=== PATIENT | female | born 1975 | race Two or more races ===

== ENCOUNTER 2020-09-18 00:12 | Emergency (ER) | payer OTHER, SELFPAY ==
[2020-09-18 00:13] VITALS: BP 138/89; PULSE 102; RESP 18; TEMP 36.9; O2SAT 97; BMI 25.2
--- NOTE | 2020-09-18 00:19 | ED_ITS ---
HPI - Alcohol General Chief Complaint: Psychiatric Symptoms Stated Complaint: etoh Time Seen by Provider: 09/18/20 00:19 Source: patient and family Mode of arrival: ambulatory Limitations: no limitations History of Present Illness HPI narrative: Patient with history of depression alcohol use been depressed for long-time specially for last 2 years and drinking heavy been hospitalized 3 times for depression and detox last discharge was 09/12 from [facility] for depression and alcohol use patient feels suicidal sometimes without any significant plan. Patient been fighting with her lately and her left her yesterday for same reason now she lives alone and she has been drinking heavy complaint: alcohol intoxication Related Data Allergies Allergy/AdvReac Type Severity Reaction Status Date / Time No Known Allergies Allergy Verified 09/18/20 00:19 Review of Systems Review of Systems: Constitutional : No Weight loss, No Fever, No Chills ENT/Mouth : No sore throat, No Rhinorrhea Eyes: No Eye Pain, No Swelling Cardiovascular : No Chest Pain, no palpitations Respiratory : No Cough, No Sputum, no shortness of breath Gastrointestinal : ++ Nausea, No Vomiting, No Diarrhea, No abdominal Pain, no black stools Genitourinary : No Dysuria, No Urinary Frequency Musculoskeletal : No joint pain, No Myalgias, No Joint Swelling Skin : No Skin Lesions, No rash Neuro : No Weakness, No Numbness, No Dizziness, No Headache Psych : No Anxiety/Panic, No Depression Heme/Lymph: No Bruising, No Lymphadenopathy Endocrine : No Polyuria, No Polydipsia All other systems reviewed and are negative [facility] Past Medical History Medical History (Updated 09/18/20 @ 02:05 by Vlad Azevedo MD) Alcohol abuse Major depression Social History Social History Advance Directives: No Physical Exam Vital Signs: Vital Signs: Last Vital Signs Temp 98.4 F 09/18/20 00:13 Pulse 102 H 09/18/20 00:13 Resp 18 09/18/20 00:13 BP 138/89 09/18/20 00:13 Pulse Ox 97 09/18/20 00:13 Body Mass Index 25.2 Appearance: Alert. Oriented X3. No acute distress. Tearful looks sad Eyes: PERRLA, No Nystagmus etoh ++ ENT: Pharynx normal. Oral Mucosa moist Neck: Normal inspection. Neck supple. CVS: Normal heart rate and rhythm. Pulses normal. Respiratory: No respiratory distress. Equal air entry bilateral, no wheezing/rales/rhonchi Abdomen: Soft and nontender. Bowel sounds are present, no mass palpable, no CVA tenderness Skin: Skin warm and dry. Normal skin color. Normal skin turgor. Extremities: No lower extremity edema. No calf tenderness Neuro: Oriented X 3. No motor deficit. No sensory deficit.No cerebellar signs , cranial nerves II-XII intact Psych: Looks depressed vague about suicidal ideation, no specific plan no homicidal ideation no hallucination or delusion MDM - Alcohol MDM Narrative Medical decision making narrative: Patient with alcohol dependence with depression with vague suicidal ideation multiple hospitalization comes here for the same situation ETOH level is 208 will get BH in consult once sober Differential Diagnosis Differential diagnosis: Likely alcohol dependence Medical Records Attestation: I reviewed the patient's medical records. Lab Data Attestation: I reviewed the patient's lab results. Result diagrams: 09/18/20 01:00 09/18/20 01:00 Labs: Lab Results 09/18/20 09/18/20 09/18/20 Range/Units 01:00 01:00 01:00 WBC 6.3 (4.8-10.8) X10*3/uL RBC 4.47 (4.20-5.50) X10*6/uL Hgb 10.6 L (12.0-16.0) g/dl Hct 33.0 L (37-47) % MCV 73.8 L (80-98) fL MCH 23.7 L (27.0-33.0) pg MCHC 32.1 (31.0-35.0) g/dl RDW 20.2 H (11.0-16.0) % Plt Count 335 (160-400) X10*3/uL MPV 9.2 L (9.4-12.3) fL Immature Gran % (Auto) 0.2 (0.0-0.4) % Neut % (Auto) 69.5 (45-73) % Lymph % (Auto) 23.3 (20-40) % [place] % (Auto) 5.4 (2-11) % Eos % (Auto) 0.3 (0-4) % Baso % (Auto) 1.3 (0-2) % Lymph # (Auto) 1.5 (1.2-4.9) X10*3/uL [place] # (Auto) 0.3 (0.1-1.2) X10*3/uL Eos # (Auto) 0.0 (0.0-0.4) X10*3/uL Baso # (Auto) 0.1 (0.0-0.2) X10*3/uL Abs Immat Gran (auto) 0.01 (0.00-0.03) X10*3/uL Absolute Neuts (auto) 4.4 (2.0-8.3) X10*3/uL Absolute Nucleated RBC 0.000 (0.0-0.012) X10*3/uL Nucleated RBC % (auto) 0.0 (0.0-0.2) /100WBC PT 14.5 H (10.8-13.0) SEC INR 1.2 H (0.9-1.1) Sodium 141 (135-145) mmol/L Potassium 4.0 (3.3-5.1) mmol/L Chloride 102 (96-108) mmol/L Carbon Dioxide 20 L (22-29) mmol/L Anion Gap 23 H (12-20) BUN 9 (9-16) mg/dL Creatinine 0.67 (0.5-1.4) mg/dL Estim Creat Clear Calc 99.2 Estimated GFR > 60 Random Glucose 99 (60-115) mg/dL Calcium 9.2 (8.4-10.2) mg/dL Magnesium 2.1 (1.6-2.6) mg/dL Total Bilirubin 0.4 (0.0-1.0) mg/dL AST 139 H (5-31) U/L ALT 95 H (0-31) U/L Alkaline Phosphatase 174 H (39-117) U/L Total Protein 7.6 (6.5-8.0) g/dL Albumin 3.9 (3.5-5.0) g/dL Lipase 36 (8-78) U/L Ethyl Alcohol mg/dL COVID-19 (MIKA) (Negative) COVID-19 Clin Com 09/18/20 09/18/20 Range/Units 01:00 01:00 WBC (4.8-10.8) X10*3/uL RBC (4.20-5.50) X10*6/uL Hgb (12.0-16.0) g/dl Hct (37-47) % MCV (80-98) fL MCH (27.0-33.0) pg MCHC (31.0-35.0) g/dl RDW (11.0-16.0) % Plt Count (160-400) X10*3/uL MPV (9.4-12.3) fL Immature Gran % (Auto) (0.0-0.4) % Neut % (Auto) (45-73) % Lymph % (Auto) (20-40) % [place] % (Auto) (2-11) % Eos % (Auto) (0-4) % Baso % (Auto) (0-2) % Lymph # (Auto) (1.2-4.9) X10*3/uL [place] # (Auto) (0.1-1.2) X10*3/uL Eos # (Auto) (0.0-0.4) X10*3/uL Baso # (Auto) (0.0-0.2) X10*3/uL Abs Immat Gran (auto) (0.00-0.03) X10*3/uL Absolute Neuts (auto) (2.0-8.3) X10*3/uL Absolute Nucleated RBC (0.0-0.012) X10*3/uL Nucleated RBC % (auto) (0.0-0.2) /100WBC PT (10.8-13.0) SEC INR (0.9-1.1) Sodium (135-145) mmol/L Potassium (3.3-5.1) mmol/L Chloride (96-108) mmol/L Carbon Dioxide (22-29) mmol/L Anion Gap (12-20) BUN (9-16) mg/dL Creatinine (0.5-1.4) mg/dL Estim Creat Clear Calc Estimated GFR Random Glucose (60-115) mg/dL Calcium (8.4-10.2) mg/dL Magnesium (1.6-2.6) mg/dL Total Bilirubin (0.0-1.0) mg/dL AST (5-31) U/L ALT (0-31) U/L Alkaline Phosphatase (39-117) U/L Total Protein (6.5-8.0) g/dL Albumin (3.5-5.0) g/dL Lipase (8-78) U/L Ethyl Alcohol 208 mg/dL COVID-19 (MIKA) Negative (Negative) COVID-19 Clin Com See Note Discharge Plan Discharge Clinical Impression: Alcohol intoxication Qualifiers: Complication of substance-induced condition: uncomplicated Qualified Code(s): F10.920 - Alcohol use, unspecified with intoxication, uncomplicated Depression Qualifiers: Depression Type: major depressive disorder Major depression recurrence: recurrent Active/Remission status: currently active Major depression episode severity: severe Psychotic features: without psychotic features Qualified Code(s): F33.2 - Major depressive disorder, recurrent severe without psychotic features
[2020-09-18] MEDS: 0.9 % Sodium Chloride 1,000 ML 999 ML IVCONT (00:56)
[2020-09-18] MEDS: ondansetron HCL 4 MG/2 ML VIAL IVPUSH (01:04)
[2020-09-18] MEDS: LORazepam 2 MG/ML VIAL IVPUSH (01:04)
[2020-09-18 01:05] LABS: MANUAL DIFF FLAG NO
[2020-09-18 01:07] LABS: Basophils Absolute Auto 0.1 X10*3/uL (0.0-0.2); Basophils Percent Auto 1.3 % (0-2); Eosinophils Percent Auto 0.3 % (0-4); Hemoglobin 10.6 g/dl (12.0-16.0); Imm Gran Abs Auto 0.01 X10*3/uL (0.00-0.03); Imm Gran Pct Auto 0.2 % (0.0-0.4); Lymphocytes Absolute Auto 1.5 X10*3/uL (1.2-4.9); Lymphocytes Percent Auto 23.3 % (20-40); Mean Corpuscular HGB Conc 32.1 g/dl (31.0-35.0); Mean Corpuscular Hemoglobin 23.7 pg (27.0-33.0); Mean Corpuscular Volume 73.8 fL (80-98); Mean Platelet Volume 9.2 fL (9.4-12.3); Monocytes Absolute Auto 0.3 X10*3/uL (0.1-1.2); Monocytes Percent Auto 5.4 % (2-11); Neutrophils Absolute Auto 4.4 X10*3/uL (2.0-8.3); Neutrophils Percent Auto 69.5 % (45-73); Platelet Count 335 X10*3/uL (160-400); Red Blood Count 4.47 X10*6/uL (4.20-5.50); Red Cell Distribution Width 20.2 % (11.0-16.0); White Blood Count 6.3 X10*3/uL (4.8-10.8)
[2020-09-18 01:21] LABS: COVID-19 Test Negative (Negative)
[2020-09-18 01:22] LABS: INTERNATIONAL NORM RATIO 1.2 (0.9-1.1); Prothrombin Time 14.5 SEC (10.8-13.0)
[2020-09-18 01:35] LABS: Ethanol 208 mg/dL
[2020-09-18 01:41] LABS: Alanine Aminotransferase 95 U/L (0-31); Albumin Level 3.9 g/dL (3.5-5.0); Alkaline Phosphatase 174 U/L (39-117); Anion Gap 23 (12-20); Aspartate Amino Transferase 139 U/L (5-31); Bilirubin Total 0.4 mg/dL (0.0-1.0); Blood Urea Nitrogen 9 mg/dL (9-16); Calcium 9.2 mg/dL (8.4-10.2); Carbon Dioxide 20 mmol/L (22-29); Chloride 102 mmol/L (96-108); Creatinine Clr Calc Pharmacy 99.2; Estimated Glomerular Filt Rate > 60; Glucose Random 99 mg/dL (60-115); Lipase 36 U/L (8-78); Magnesium 2.1 mg/dL (1.6-2.6); Sodium 141 mmol/L (135-145); Total Protein 7.6 g/dL (6.5-8.0)
[2020-09-18 02:47] LABS: Appearance Urine CLEAR; Color Urine YELLOW; Glucose Urine UA NEG (NEG); Leukocyte Esterase Urine NEG (NEG); Nitrite Urine NEG (NEG); Urine Blood TRACE (NEG); Urine Ketones 15 MG/DL (NEG); Urine Protein NEG (NEG-TRACE)
--- NOTE | 2020-09-18 03:00 | PC.NURSE ---
belongings were locked in locker #[id number]
[2020-09-18 03:07] LABS: Anion Gap 21 (12-20); Blood Urea Nitrogen 8 mg/dL (9-16); Calcium 8.4 mg/dL (8.4-10.2); Carbon Dioxide 19 mmol/L (22-29); Chloride 104 mmol/L (96-108); Creatinine Clr Calc Pharmacy 107.2; Estimated Glomerular Filt Rate > 60; Glucose Random 86 mg/dL (60-115); Potassium 3.9 mmol/L (3.3-5.1); Sodium 140 mmol/L (135-145)
[2020-09-18 03:11] LABS: Hyaline Casts Urine 0-2 /LPF; RBC Urine 0-2 /HPF (0); Squamous Epithelial Cell Urine 1+ /LPF; WBC Urine 0-2 /HPF (0-4)
[2020-09-18 03:19] LABS: Amphetamine Screen Urine Not Detected (Not Detect); Barbiturates, Urine POSITIVE (Not Detect); Benzodiazepines Screen Urine Not Detected (Not Detect); Cannabinoid Screen Urine POSITIVE (Not Detect); Cocaine Screen Urine Not Detected (Not Detect); Opiate Screen Urine Not Detected (Not Detect); Phencyclidine Screen Urine Not Detected (Not Detect)
--- NOTE | 2020-09-18 04:30 | PC.NURSE ---
JAMESN was faxed and called at this time
[2020-09-18 05:48] VITALS: BP 116/68; PULSE 96; RESP 15; O2SAT 97
--- NOTE | 2020-09-18 05:54 | PC.NURSE ---
patient is ambulatory to the bathroom with a steady gait, vitals stable
[2020-09-18 08:34] VITALS: BP 144/82; PULSE 88; RESP 18; O2SAT 98
--- NOTE | 2020-09-18 10:28 | MHC.CARE ---
CARE team met with pt for assessment this am at 0845.
--- NOTE | 2020-09-18 10:54 | MHC.CARE ---
Upon completion of CARE team assessment and case review with ED provider pt has been cleared of psychiatric presentation and no acute psychiatric needs presented. Pt is open and agreeable to the plan of EATS referral. Recovery team assisting in this process for continuity of care.
--- NOTE | 2020-09-18 11:55 | MHC.RECOVSUP ---
? Reason for consult:Continuity of care o Current location: ED-13 o Identified substance use concern: ETOH - Seeking ATS (detox) - Support ? Intervention: o ATS bed search started/completed/in process o Community resources provided o Harm reduction discussion ? Plaan: o Bed search in progress to o Patient awaiting crisis evaluation o Patient to follow up with [facility] after discharge ? Additional information: Pt. to do a screening for [facility], and referrals to [facility] and [facility] have been made.
[2020-09-18 13:05] VITALS: BP 143/79; PULSE 85; RESP 16; TEMP 36.8; O2SAT 99
--- NOTE | 2020-09-18 14:06 | MHC.RECOVRN ---
T/w briefly met with pt to discuss placement after dispo to [facility]. Pt agreeable. Pt reports 2 40 oz beers and 10 nips daily, last use last night. Pt had referrals placed to [facility], [facility], and [facility] Pt declines referral to [facility]. [facility] first available bed on 09/21. No EATS bed available at [place]. [facility] currently reviewing referral. Message left with [facility] Tay television schedule coordinator (ph- [phone]), requesting call back on status. Will continue to follow.
--- NOTE | 2020-09-18 15:16 | PC.NURSE ---
Addendum entered by Shiv Nice 09/18/20 15:17: Late Entry Original Note: Report received. PT ambulated to pod with steady gait, denies complaints at this time
[2020-09-18] MEDS: LORazepam 1 MG TABLET 2 MG PO (16:00)
--- NOTE | 2020-09-18 17:07 | PC.NURSE ---
Pt resting in bed comfortably at this time, no signs of distress
--- NOTE | 2020-09-18 19:20 | MHC.RECOVSUP ---
i Followed up with patient and Called [facility] To followed up with the status on EATS bed. Patient is still pending status.
[2020-09-18] MEDS: FLUoxetine HCl 20 MG CAPSULE 40 MG PO (20:05)
[2020-09-18] MEDS: Naltrexone HCl 50 MG TABLET PO (20:05)
[2020-09-18] MEDS: Folic Acid 1 MG TABLET PO (20:05)
--- NOTE | 2020-09-18 20:23 | MHC.RECOVSUP ---
? Reason for consult Support & Resources o Current location: ED 22 o Identified substance use concern: Heroin - Support ? Intervention: o Community resources provided o Harm reduction discussion ? Plan: o Referral to [facility] o Follow up tomorrow o Patient to follow up with [facility] after discharge ? Additional information: Patient is very interested in starting MAT.. I supplied Patient with the information to the [facility] and also the information to [facility] for support in his recovery.
[2020-09-18 20:49] VITALS: BP 130/80; PULSE 64; RESP 20; TEMP 36.4; O2SAT 99
--- NOTE | 2020-09-19 01:06 | PC.NURSE ---
Pt reports to this RN that she is feeling anxious. Pt CIWA as documented. This RN to medicate with PRN ativan per MAR
[2020-09-19 01:09] VITALS: BP 144/93; PULSE 73; RESP 16; TEMP 36.8; O2SAT 99
[2020-09-19] MEDS: LORazepam 1 MG TABLET 2 MG PO ×2 (01:09→08:11)
[2020-09-19] MEDS: Folic Acid 1 MG TABLET PO (08:07)
[2020-09-19] MEDS: FLUoxetine HCl 20 MG CAPSULE 40 MG PO (08:07)
[2020-09-19] MEDS: Naltrexone HCl 50 MG TABLET PO (08:07)
--- NOTE | 2020-09-19 08:12 | MHC.RECOVRN ---
Calls placed to [facility] with no answer regarding status of EATS bed, message left. Awaiting call back.
[2020-09-19 09:22] VITALS: BP 141/91; PULSE 65; RESP 16; TEMP 36.6; O2SAT 99
--- NOTE | 2020-09-19 10:45 | PC.NURSE ---
alert, speech clear, skin wpd, no signs of withdrawl, medicated w ativan earlier for reportyed anxiety, now sleeping, ate breakfast, aware of care plan, calsm and cooperative
== END 2020-09-19 12:58 | disposition home or self-care (01) ==
PROVIDERS: Student in an Organized Health Care Education/Training Program; Emergency Provider Internal Medicine; PCP Pediatrics
DX: F10.220 Alcohol dependence with intoxication, uncomplicated (principal); Y90.7 Blood alcohol level of 200-239 mg/100 ml; F33.2 Major depressive disorder, recurrent severe without psychotic features; R45.851 Suicidal ideations; Z20.822 Contact with and (suspected) exposure to COVID-19; F41.9 Anxiety disorder, unspecified; F12.90 Cannabis use, unspecified, uncomplicated; Z72.89 Other problems related to lifestyle; Z63.0 Problems in relationship with spouse or partner
CPT/HCPCS: 36415; 80048; 80053; 80307; 80320; 81001; 83690; 83735; 85025; 85610; 87635; 96361; 96374; 96375; 99285; J2060; J2405

== ENCOUNTER 2021-06-30 16:49 | Emergency (ER) | payer MEDICAID, SELFPAY ==
--- NOTE | ~2021-06-30 | CT_ITS ---
EXAMINATION: NONCONTRAST HEAD CT NONCONTRAST CERVICAL SPINE CT INDICATION INFORMATION: Fall, headache, trauma COMPARISON: None TECHNIQUE: Separate noncontrast CT examinations of the head and cervical spine were performed. Coronal head CT images and coronal and sagittal cervical spine images were created at the technologist workstation. DLP: 1069 mGy-cm DOSE LOWERING TECHNIQUES: This CT examination was performed using dose optimization techniques as appropriate, variously including the following: - Automated exposure control - Adjustment of mA and/or kV according to patient size (this includes techniques or standardized protocols for targeted exams were dose is matched to indication/reason for exam; i.e. extremities or head) - Use of iterative reconstruction technique FINDINGS: Head: There is no evidence of acute intracranial hemorrhage or territorial infarction. No abnormal mass-effect or midline shift is seen. Cross to white matter differentiation is well preserved. No extra-axial fluid collections are identified. The ventricles are normal in size. There is no abnormal attenuation within the brain parenchyma. There is right frontal scalp soft tissue swelling. No acute fracture is seen. The mastoid air cells and visualized portions of the paranasal sinuses are well-aerated. Cervical spine: There is anatomic alignment of the vertebral bodies and posterior elements. There is partial fusion of C2-C3. Vertebral body heights are maintained. Intervertebral disc spaces are otherwise preserved. No evidence of acute fracture. No prevertebral soft tissue swelling. Visualized portions of the lung apices are unremarkable. The thyroid gland is unremarkable. CT/CT cervical spine wo con IMPRESSION: 1. Head: No acute intracranial findings identified. Right frontal scalp soft tissue swelling. 2. Cervical spine: No acute findings identified.
[2021-06-30 17:17] VITALS: BP 110/65; BP 142/96; PULSE 103; PULSE 88; RESP 18; TEMP 36.9; O2SAT 100; O2SAT 99; BMI 25.1
--- NOTE | 2021-06-30 17:17 | ED_ITS ---
HPI - Alcohol General Chief Complaint: Psychiatric Symptoms Stated Complaint: ETOH,NAUSEA,CRISIS,SI STATEMENTS Time Seen by Provider: 06/30/21 17:17 Source: patient Mode of arrival: EMS Limitations: no limitations History of Present Illness HPI narrative: Patient alcoholic drinks of vodka been drinking very heavily lately complaining of her upper abdominal pain with nausea also having suicidal ideation, crying on arrival also patient states yesterday she fell while going upstairs there are 4 steps and fell on the last step hitting her left side of the head to the last step no loss of conscious no vomiting no other injuries Related Data Home Medications Medication Instructions Recorded Confirmed fluoxetine 20 mg capsule 20 mg PO DAILY 09/18/20 06/30/21 folic acid 1 mg tablet 1 mg PO DAILY 09/18/20 06/30/21 melatonin 5 mg tablet 5 mg PO BEDTIME PRN 06/30/21 06/30/21 pantoprazole 40 mg tablet,delayed 40 mg PO DAILY 06/30/21 06/30/21 release thiamine HCl (vitamin B1) 100 mg 100 mg PO DAILY 06/30/21 06/30/21 tablet Allergies Allergy/AdvReac Type Severity Reaction Status Date / Time No Known Allergies Allergy Verified 06/30/21 20:59 Review of Systems Review of Systems: Yes all other systems are reviewed and are negative PMFSH Past Medical History Medical History Alcohol abuse Major depression Social History Social History Alcohol intake: current Patient Tobacco Use Status: Never used Tobacco Use of substances other than those prescribed or required for medical reasons: No Advance Directives: No Advance Directives Information Provided: Yes Physical Exam Vital Signs: Vital Signs: Last Vital Signs Temp 98.1 F 07/01/21 00:02 Pulse 100 07/01/21 00:02 Resp 19 07/01/21 00:02 BP 96/60 07/01/21 00:02 Pulse Ox 100 07/01/21 00:02 BMI result Body Mass Index 25.1 Appearance: Alert. Oriented X3. No acute distress. etoh++ Eyes: PERRLA, No Nystagmus ENT: Pharynx normal. Oral Mucosa moist Neck: Normal inspection. Neck supple. CVS: Normal heart rate and rhythm. Pulses normal. Respiratory: No respiratory distress. Equal air entry bilateral, no wheezing/rales/rhonchi Abdomen: Soft and nontender. Bowel sounds are present, no mass palpable, no CVA tenderness Skin: Skin warm and dry. Normal skin color. Normal skin turgor. Extremities: No lower extremity edema. No calf tenderness Neuro: Oriented X 3. No motor deficit. No sensory deficit.No cerebellar signs , cranial nerves II-XII intact MDM - Alcohol MDM Narrative Medical decision making narrative: Patient will call in [facility] aerated with depression suicidal ideation will get care team involved to evaluate the patient, patient had CT and cervical spine negative for any acute injury Differential Diagnosis Differential diagnosis: Likely alcohol intoxication Lab Data Attestation: I reviewed the patient's lab results. Result diagrams: 06/30/21 17:57 06/30/21 17:57 Labs: Lab Results 06/30/21 06/30/21 06/30/21 Range/Units 17:57 17:57 17:57 WBC 8.7 (4.8-10.8) X10*3/uL RBC 4.36 (4.20-5.50) X10*6/uL Hgb 9.9 L (12.0-16.0) g/dl Hct 31.6 L (37.0-47.0) % MCV 72.5 L (80.0-98.0) fL MCH 22.7 L (27.0-33.0) pg MCHC 31.3 (31.0-35.0) g/dl RDW 16.2 H (11.0-16.0) % Plt Count 293 (160-400) X10*3/uL MPV 9.8 (9.4-12.3) fL Immature Gran % (Auto) 0.3 (0.0-0.4) % Neut % (Auto) 66.4 (45-73) % Lymph % (Auto) 27.3 (20-40) % [place] % (Auto) 4.0 (2-11) % Eos % (Auto) 1.4 (0-4) % Baso % (Auto) 0.6 (0-2) % Lymph # (Auto) 2.4 (1.2-4.9) X10*3/uL [place] # (Auto) 0.4 (0.1-1.2) X10*3/uL Eos # (Auto) 0.1 (0.0-0.4) X10*3/uL Baso # (Auto) 0.1 (0.0-0.2) X10*3/uL Abs Immat Gran (auto) 0.03 (0.00-0.03) X10*3/uL Absolute Neuts (auto) 5.8 (2.0-8.3) x10*3/uL Absolute Nucleated RBC 0.000 (0.0-0.012) X10*3/uL Nucleated RBC % (auto) 0.0 (0.0-0.2) /100WBC Sodium 144 (135-145) mmol/L Potassium 3.8 (3.3-5.1) mmol/L Chloride 107 (96-108) mmol/L Carbon Dioxide 26 (22-29) mmol/L Anion Gap 15 (12-20) BUN 5 L (9-16) mg/dL Creatinine 0.65 (0.5-1.4) mg/dL Estim Creat Clear Calc 101.2 Estimated GFR > 60 Random Glucose 109 (60-115) mg/dL Calcium 8.8 (8.4-10.2) mg/dL Magnesium 2.0 (1.6-2.6) mg/dL Total Bilirubin 0.5 (0.0-1.0) mg/dL AST 37 H D (5-31) U/L ALT 16 (0-31) U/L Alkaline Phosphatase 144 H (39-117) U/L Total Protein 7.1 (6.5-8.0) g/dL Albumin 3.3 L (3.5-5.0) g/dL Lipase 28 (8-78) U/L Urine Color Urine Appearance Urine pH (5.0-8.0) Ur Specific [place] (1.005-1.025) Urine Protein (NEG-TRACE) MG/DL Urine Glucose (UA) (NEG) MG/DL Urine Ketones (NEG) MG/DL Urine Blood (NEG) Urine Nitrite (NEG) Ur Leukocyte Esterase (NEG) Ethyl Alcohol mg/dL COVID-19 (MIKA) Negative (Negative) COVID-19 Clin Com See Note 06/30/21 06/30/21 Range/Units 17:57 20:16 WBC (4.8-10.8) X10*3/uL RBC (4.20-5.50) X10*6/uL Hgb (12.0-16.0) g/dl Hct (37.0-47.0) % MCV (80.0-98.0) fL MCH (27.0-33.0) pg MCHC (31.0-35.0) g/dl RDW (11.0-16.0) % Plt Count (160-400) X10*3/uL MPV (9.4-12.3) fL Immature Gran % (Auto) (0.0-0.4) % Neut % (Auto) (45-73) % Lymph % (Auto) (20-40) % [place] % (Auto) (2-11) % Eos % (Auto) (0-4) % Baso % (Auto) (0-2) % Lymph # (Auto) (1.2-4.9) X10*3/uL [place] # (Auto) (0.1-1.2) X10*3/uL Eos # (Auto) (0.0-0.4) X10*3/uL Baso # (Auto) (0.0-0.2) X10*3/uL Abs Immat Gran (auto) (0.00-0.03) X10*3/uL Absolute Neuts (auto) (2.0-8.3) x10*3/uL Absolute Nucleated RBC (0.0-0.012) X10*3/uL Nucleated RBC % (auto) (0.0-0.2) /100WBC Sodium (135-145) mmol/L Potassium (3.3-5.1) mmol/L Chloride (96-108) mmol/L Carbon Dioxide (22-29) mmol/L Anion Gap (12-20) BUN (9-16) mg/dL Creatinine (0.5-1.4) mg/dL Estim Creat Clear Calc Estimated GFR Random Glucose (60-115) mg/dL Calcium (8.4-10.2) mg/dL Magnesium (1.6-2.6) mg/dL Total Bilirubin (0.0-1.0) mg/dL AST (5-31) U/L ALT (0-31) U/L Alkaline Phosphatase (39-117) U/L Total Protein (6.5-8.0) g/dL Albumin (3.5-5.0) g/dL Lipase (8-78) U/L Urine Color YELLOW Urine Appearance CLEAR Urine pH 5.5 (5.0-8.0) Ur Specific [place] >= 1.030 H (1.005-1.025) Urine Protein NEG (NEG-TRACE) MG/DL Urine Glucose (UA) NEG (NEG) MG/DL Urine Ketones 15 (NEG) MG/DL Urine Blood NEG (NEG) Urine Nitrite NEG (NEG) Ur Leukocyte Esterase NEG (NEG) Ethyl Alcohol 347 H* mg/dL COVID-19 (MIKA) (Negative) COVID-19 Clin Com Discharge Plan Discharge Clinical Impression: Suicidal ideation, Alcohol abuse Prescriptions: No Action folic acid 1 mg tablet 1 mg PO DAILY 0RF fluoxetine 20 mg capsule 20 mg PO DAILY 0RF pantoprazole 40 mg Tablet,Delayed Release (Dr/Ec) 40 mg PO DAILY 0RF thiamine HCl (vitamin B1) 100 mg Tablet 100 mg PO DAILY 0RF melatonin 5 mg Tablet 5 mg PO BEDTIME PRN (Reason: Sleep) 0RF
[2021-06-30 18:10] LABS: MANUAL DIFF FLAG NO
[2021-06-30 18:21] LABS: Basophils Absolute Auto 0.1 X10*3/uL (0.0-0.2); Basophils Percent Auto 0.6 % (0-2); Eosinophils Absolute Auto 0.1 X10*3/uL (0.0-0.4); Eosinophils Percent Auto 1.4 % (0-4); Hematocrit 31.6 % (37.0-47.0); Hemoglobin 9.9 g/dl (12.0-16.0); Imm Gran Abs Auto 0.03 X10*3/uL (0.00-0.03); Imm Gran Pct Auto 0.3 % (0.0-0.4); Lymphocytes Absolute Auto 2.4 X10*3/uL (1.2-4.9); Lymphocytes Percent Auto 27.3 % (20-40); Mean Corpuscular HGB Conc 31.3 g/dl (31.0-35.0); Mean Corpuscular Hemoglobin 22.7 pg (27.0-33.0); Mean Corpuscular Volume 72.5 fL (80.0-98.0); Mean Platelet Volume 9.8 fL (9.4-12.3); Monocytes Absolute Auto 0.4 X10*3/uL (0.1-1.2); Neutrophils Absolute Auto 5.8 x10*3/uL (2.0-8.3); Neutrophils Percent Auto 66.4 % (45-73); Platelet Count 293 X10*3/uL (160-400); Red Blood Count 4.36 X10*6/uL (4.20-5.50); Red Cell Distribution Width 16.2 % (11.0-16.0); White Blood Count 8.7 X10*3/uL (4.8-10.8)
[2021-06-30 18:23] LABS: Ethanol 347 mg/dL
[2021-06-30 18:26] LABS: Alanine Aminotransferase 16 U/L (0-31); Albumin Level 3.3 g/dL (3.5-5.0); Alkaline Phosphatase 144 U/L (39-117); Anion Gap 15 (12-20); Aspartate Amino Transferase 37 U/L (5-31); Bilirubin Total 0.5 mg/dL (0.0-1.0); Blood Urea Nitrogen 5 mg/dL (9-16); Calcium 8.8 mg/dL (8.4-10.2); Carbon Dioxide 26 mmol/L (22-29); Chloride 107 mmol/L (96-108); Creatinine Clr Calc Pharmacy 101.2; Estimated Glomerular Filt Rate > 60; Glucose Random 109 mg/dL (60-115); Lipase 28 U/L (8-78); Potassium 3.8 mmol/L (3.3-5.1); Sodium 144 mmol/L (135-145); Total Protein 7.1 g/dL (6.5-8.0)
[2021-06-30 18:29] LABS: COVID-19 Test Negative (Negative)
[2021-06-30] MEDS: Famotidine/PF 20 MG/2 ML VIAL IVPUSH (18:38)
[2021-06-30] MEDS: ondansetron HCL 4 MG/2 ML VIAL IVPUSH (18:38)
[2021-06-30] MEDS: 0.9 % Sodium Chloride 1,000 ML 999 ML IV (18:39)
[2021-06-30 19:30] VITALS: BP 129/77; PULSE 88; RESP 18; TEMP 36.5; O2SAT 100
[2021-06-30 20:27] LABS: Appearance Urine CLEAR; Color Urine YELLOW; Glucose Urine UA NEG (NEG); Leukocyte Esterase Urine NEG (NEG); Nitrite Urine NEG (NEG); PH 5.5 (5.0-8.0); Specific Gravity - Urine >= 1.030 (1.005-1.025); Urine Blood NEG (NEG); Urine Ketones 15 MG/DL (NEG); Urine Protein NEG (NEG-TRACE)
[2021-06-30 20:58] VITALS: BP 115/82; PULSE 91; RESP 25; O2SAT 99
--- NOTE | 2021-06-30 21:01 | PC.NURSE ---
Pt with 1:[address] Pt tearful, pacing, attempting to leave room. Pt states Just let me go home, I promise I'll be safe. I just want to go home to drink. Pt redirected, encouraged to return to stretcher. Pt seated on stretcher, resting in position of comfort, placed on bedside cardiac catheterization technologist, VSS on RA. Pt states I just want to drink myself to , then asking why can't I go home? I promise I'll be safe. Redirection provided once again. Pt cooperative with care at this time. Pt stretcher is in lowest locked position, rails raised, call martinez within reach, sitter remains at bedside. Red fall prevention socks on, red fall alert wrist band on, red fall star sign posted. Pt c/o MD nola to be made aware.
--- NOTE | 2021-06-30 21:28 | PC.NURSE ---
Pt reporting anxiety, requesting meds to help her relax. Dr Azevedo aware. Pt to be medicated per orders.
[2021-06-30] MEDS: LORazepam 2 MG/ML VIAL IVPUSH (21:29)
[2021-06-30 21:40] VITALS: BP 107/72; PULSE 83; RESP 18; TEMP 36.6; O2SAT 100
--- NOTE | 2021-06-30 22:19 | PHA.MEDREC ---
med rec complete, patient has not had meds for a couple of days Pharmacy Consult ? Medication Reconciliation Pharmacy has completed the medication reconciliation.
--- NOTE | 2021-06-30 23:33 | PC.NURSE ---
Pt reports falling DATA SUPPORT SPECIALIST, c/o INFANTE, neck pain and epigastric pain. Dr Azevedo made aware, this RN questioning if Dr Azevedo would like CT scan. No additional orders at this time.
[2021-07-01 00:02] VITALS: BP 96/60; PULSE 100; RESP 19; TEMP 36.7; O2SAT 100
[2021-07-01] MEDS: Morphine Sulfate 4 MG/ML CARTRIDGE IVPUSH (00:09)
[2021-07-01 02:00] VITALS: RESP 18
[2021-07-01 03:29] VITALS: BP 92/52; PULSE 84; RESP 16; O2SAT 99
--- NOTE | 2021-07-01 03:32 | PC.NURSE ---
Dr Nath aware of pt's VS and c/o headache and neck pain. No additional orders at this time.
[2021-07-01 03:38] VITALS: BP 92/52; PULSE 97; RESP 16; TEMP 36.7; O2SAT 100
[2021-07-01 04:04] LABS: Amphetamine Screen Urine Not Detected (Not Detect); Barbiturates, Urine Not Detected (Not Detect); Benzodiazepines Screen Urine Not Detected (Not Detect); Cannabinoid Screen Urine POSITIVE (Not Detect); Cocaine Screen Urine Not Detected (Not Detect); Fentanyl, urine Not Detected (Not Detect); Opiate Screen Urine Not Detected (Not Detect); Phencyclidine Screen Urine Not Detected (Not Detect)
--- NOTE | 2021-07-01 07:00 | PC.NURSE ---
Patient slept through the night, no distress observed/reported, care team consult ordered/patient will be assessed in the morning, VSS, will continue to monitor.
--- NOTE | 2021-07-01 07:31 | PC.NURSE ---
patient awake at present, respirations even and unlabored, quiet and making appropriate requests for drinks/water. patient appears in no distress, maintains safe behavior.
[2021-07-01 08:47] VITALS: BP 106/63; PULSE 95; RESP 18; O2SAT 100
[2021-07-01] MEDS: Folic Acid 1 MG TABLET PO (09:33)
[2021-07-01] MEDS: Omeprazole 40 MG CAPSULE.DR PO (09:33)
[2021-07-01] MEDS: Acetaminophen 325 MG TABLET 650 MG PO (09:33)
[2021-07-01] MEDS: Thiamine HCL 100 MG TABLET PO (09:34)
[2021-07-01] MEDS: FLUoxetine HCl 20 MG CAPSULE PO (09:34)
--- NOTE | 2021-07-01 14:53 | MHC.CARE ---
CARE Team met with patient in [facility] who came to the ED by ambulance yesterday after falling while intoxicated ([phone] [phone]) then making suicidal statements. She had slept through the night medically stable for interview today. Patient was alert and oriented, pleasant and engaged, appeared her stated age, somewhat disheveled, her eye contact was intense, voice/speech within normal limits. Affect bright, mood described as anxious, stated that as a consequence of her alcohol use she lost her job and her car, has been looking for work. Patient reported a recent period of abstinence, thought it was 1-2 months then relapsing on Wednesday, due to those circumstances. She identified going to [facility] as the beginning of her sobriety, however she was last here in August 2020 and discharged to that facility. Discussed increasing her support system and getting professional help such as IOP and MAT, patient in full agreement with both, previously went to [facility] in [place] for Vivitrol and found that to be the most effect way to maintain her sobriety to date. In terms of suicidal ideation, patient denied wanting to end her life and noted that she tends to make statements like that when she is very intoxicated, has no history of attempts or gestures. Reported that she wants to live, feels she has a good life and will regain what she has lost if she stops drinking and recognized that alcohol has been the root cause of her losses. Stated that her has been very supportive and helps her in recovery. Patient is not in need of acute psychiatric treatment, no longer in crisis and cleared for discharge. Patient was provided with information about local Intensive Outpatient Programs, [facility] Crisis, detoxes and [facility] [place], a Professor Of Visual Arts will reach out to her and the CARE Team will do a follow-up call within 24-48 hrs. 1400 Left message for patient?s , Sunny ([phone])
--- NOTE | 2021-07-03 10:58 | MHC.CARE ---
CARE Team speaks with pt as a follow up to her hospital visit and to the follow up phone call on 07/02/20 in which a message was left.? She states she is doing ?Ok? and ?Hanging in there?.? She stated that she wanted to consume alcohol yesterday but did not and seemed pleased that she was able to resist the temptation.? Pt is forward thinking, discussing she wanted a new beginning and has been working on her resume as she wants to return to work. She stated she received a voice mail message from the Recovery team.? CARE Team encouraged her to return the call and speak with the recovery team as they could put her in contact with resources she could benefit from.? Pt said she would do so. She denies any SI or self-harm urges.
== END 2021-07-01 15:23 | disposition home or self-care (01) ==
PROVIDERS: Emergency Provider Internal Medicine
DX: R45.851 Suicidal ideations (principal); F10.10 Alcohol abuse, uncomplicated; Y90.8 Blood alcohol level of 240 mg/100 ml or more; F32.9 Major depressive disorder, single episode, unspecified; Z20.822 Contact with and (suspected) exposure to COVID-19; R10.10 Upper abdominal pain, unspecified; R11.0 Nausea; Z79.899 Other long term (current) drug therapy
CPT/HCPCS: 36415; 70450; 72125; 80053; 80307; 81003; 82077; 83690; 83735; 85025; 87635; 96361; 96374; 96375; 99285; J2060; J2270; J2405

== ENCOUNTER 2021-07-24 22:24 | Inpatient (IN) | payer OTHER, SELFPAY ==
[2021-07-24 22:41] VITALS: BP 133/80; PULSE 60; O2SAT 99
[2021-07-24] MEDS: traZODone HCL 50 MG TABLET PO (23:24)
[2021-07-24] MEDS: LORazepam 1 MG TABLET 2 MG PO (23:25)
[2021-07-24] MEDS: Acetaminophen 325 MG TABLET 650 MG PO (23:25)
[2021-07-24 23:29] VITALS: BMI 24.2
[2021-07-25 00:12] VITALS: BMI 24.2
[2021-07-25] MEDS: traZODone HCL 50 MG TABLET PO (01:30)
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
[2021-07-25 06:00] VITALS: BP 149/67; PULSE 58; RESP 18; TEMP 36.4; O2SAT 100
[2021-07-25] MEDS: Omeprazole 40 MG CAPSULE.DR PO (08:22)
[2021-07-25] MEDS: Thiamine HCL 100 MG TABLET 50 MG PO (08:22)
[2021-07-25] MEDS: Folic Acid 1 MG TABLET PO (08:22)
[2021-07-25] MEDS: LORazepam 1 MG TABLET 2 MG PO (08:26)
[2021-07-25] MEDS: Acetaminophen 325 MG TABLET 650 MG PO ×2 (08:34→18:51)
[2021-07-25 08:43] LABS: MANUAL DIFF FLAG NO
[2021-07-25 08:51] LABS: Basophils Percent Auto 0.3 % (0-2); Eosinophils Absolute Auto 0.1 X10*3/uL (0.0-0.4); Eosinophils Percent Auto 2.3 % (0-4); Hematocrit 27.2 % (37.0-47.0); Hemoglobin 8.2 g/dl (12.0-16.0); Imm Gran Abs Auto 0.01 X10*3/uL (0.00-0.03); Imm Gran Pct Auto 0.3 % (0.0-0.4); Lymphocytes Absolute Auto 0.7 X10*3/uL (1.2-4.9); Lymphocytes Percent Auto 23.9 % (20-40); Mean Corpuscular HGB Conc 30.1 g/dl (31.0-35.0); Mean Corpuscular Hemoglobin 21.8 pg (27.0-33.0); Mean Corpuscular Volume 72.1 fL (80.0-98.0); Mean Platelet Volume 10.3 fL (9.4-12.3); Monocytes Absolute Auto 0.2 X10*3/uL (0.1-1.2); Monocytes Percent Auto 5.9 % (2-11); Neutrophils Absolute Auto 2.1 x10*3/uL (2.0-8.3); Neutrophils Percent Auto 67.3 % (45-73); Platelet Count 145 X10*3/uL (160-400); Red Blood Count 3.77 X10*6/uL (4.20-5.50); Red Cell Distribution Width 16.5 % (11.0-16.0); White Blood Count 3.1 X10*3/uL (4.8-10.8)
[2021-07-25 09:01] LABS: Amylase 36 U/L (28-100); Estimated Average Glucose 123 mg/dL; Hemoglobin A1c % 5.9 %
[2021-07-25 09:12] LABS: Alanine Aminotransferase 16 U/L (0-31); Albumin Level 3.5 g/dL (3.5-5.0); Alkaline Phosphatase 145 U/L (39-117); Anion Gap 9 (12-20); Aspartate Amino Transferase 33 U/L (5-31); Bilirubin Total 0.7 mg/dL (0.0-1.0); Blood Urea Nitrogen 6 mg/dL (9-16); Calcium 9.3 mg/dL (8.4-10.2); Carbon Dioxide 28 mmol/L (22-29); Chloride 104 mmol/L (96-108); Cholesterol 180 mg/dL; Creatinine Clr Calc Pharmacy 96.7; Estimated Glomerular Filt Rate > 60; Glucose Fasting 97 mg/dL (60-99); HDL Cholesterol 60 mg/dL; Iron 20 mcg/dL (30-160); LDL Cholesterol Calculated 102 mg/dl; Lipase 9 U/L (8-78); Magnesium 1.9 mg/dL (1.6-2.6); Percent Iron Saturation 4 % (15-50); Potassium 3.5 mmol/L (3.3-5.1); Sodium 137 mmol/L (135-145); Total Iron Binding Capacity 455 mcg/dL (228-428); Total Protein 7.1 g/dL (6.5-8.0); Triglycerides 92 mg/dL; Unsaturated Iron Binding 435 ug/dL
[2021-07-25 09:20] LABS: UPreg QC Valid YES
[2021-07-25 09:22] LABS: Urine Pregnancy NEGATIVE (NEGATIVE)
[2021-07-25 09:23] LABS: HIV AB/AG Nonreactive (Nonreactive)
[2021-07-25 09:30] LABS: Free T4 (Free Thyroxine) 0.74 ng/dL (0.71-1.85); Thyroid Stimulating Hormone 4.54 uIU/mL (0.32-4.0)
[2021-07-25 10:25] LABS: Folate 14.3 ng/mL (> or = 4.0); Vitamin B12 479 pg/mL (200-900)
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
--- NOTE | 2021-07-25 11:36 | HO.PM.IMCN ---
History of Present Illness Data of Consult Service Date: 07/25/21 Primary Care Provider: Brooke Hilton MD HPI Reason for consult: Routine Medical H&P This is a 46 yo F with a PMH of obesity - s/p Gastric bypass in 2013 (not with normal BMI), chronic alcohol abuse and dependence with resultant chronic pancreatitis, chronic anemia who is admitted to M5. Medical consult requested for routine Medical H&P. Patient is seen and examined in the exam room on M5. RN is present. Patient reports chronic abdominal pain, no acute changed. Denies being on pancreatic enzymes. Denies n/v/d. Denies fevers or chills. Reports last drink about 4 days ago. Prior withdrawal, but no seizures / DTs. PMH Anemia Chronic Pancreatitis PSH Gastric Bypass FH Alcohol abuse in her uncles SH Denies tobacco or illicit substance Drinks alcohol Review of Systems Review of Systems: negative except HPI [facility] Medical History (Updated 07/25/21 @ 11:53 by Jnes Velasquez MD) Alcohol abuse Major depression Pancreatitis (~2018) Surgical History (Updated 07/25/21 @ 00:17 by Paty Hardy RN) H/O gastric bypass (~2013) Social History Household Members: Spouse Household Members Other:: two cats Housing: House Do you presently have visiting nurse or other home services: No Alcohol intake: current Patient Tobacco Use Status: Never used Tobacco Use of substances other than those prescribed or required for medical reasons: No Currently Displaying Signs/Symptoms of Drug Intoxication Withdrawal: No Have you been hit, kicked, punched, or otherwise hurt by someone within the past year? If so, by whom?: No Do you feel safe in your current relationship?: Yes Is there a partner from a previous relationship who is making you feel unsafe now?: No Are you made to feel afraid or neglected: No Advance Directives: No Advance Directives Information Provided: No Advance Directives on File: No Do you have thoughts of harming others: None Do you have a plan to hurt others: No Plan Recently lost weight without trying: No Nutrition Risks: No Nutritional Risk Patient : No : No Poor oral hygiene: No Meds Allergies Allergy/AdvReac Type Severity Reaction Status Date / Time No Known Allergies Allergy Verified 06/30/21 20:59 Active Medications: Current Medications Acetaminophen (Acetaminophen 325 Mg Tablet) 650 mg PO Q6H PRN PRN Reason: Headache/Pain Mild Scale (1-3) Last Admin: 07/25/21 08:34 Dose: 650 mg Documented by: Al Hydroxide/Mg Hydroxide (Magnesium Hydrox/Alum Hydrox 30 Ml Oral.Susp) 30 ml PO Q6H PRN PRN Reason: Heartburn/Nausea Folic Acid (Folic Acid 1 Mg Tablet) 1 mg PO DAILY [facility] Last Admin: 07/25/21 08:22 Dose: 1 mg Documented by: Gabapentin (Gabapentin 300 Mg Capsule) 300 mg PO TID [facility] Hydroxyzine HCl (Hydroxyzine Hcl 25 Mg Tablet) 25 mg PO Q6H PRN PRN Reason: Anxiety Lorazepam (Lorazepam 1 Mg Tablet) 1 mg PO TID [facility]; Taper Stop: 07/31/21 14:59 Lorazepam (Lorazepam 1 Mg Tablet) 1 mg PO Q2H PRN PRN Reason: for CIWA 6 to 10 Lorazepam (Lorazepam 1 Mg Tablet) 2 mg PO Q2H PRN PRN Reason: for Ciwa 10 and above Magnesium Hydroxide (Milk Of Magnesia 30 Ml Oral.Susp) 30 ml PO DAILY PRN PRN Reason: Constipation Melatonin (Melatonin 3 Mg Tablet) 6 mg PO BEDTIME [facility] Omeprazole (Omeprazole 40 Mg Capsule.Dr) 40 mg PO DAILY@0630 [facility] Last Admin: 07/25/21 08:22 Dose: 40 mg Documented by: Thiamine HCl (Thiamine Hcl 100 Mg Tablet) 50 mg PO DAILY [facility] Last Admin: 07/25/21 08:22 Dose: 50 mg Documented by: Trazodone HCl (Trazodone Hcl 50 Mg Tablet) 50 mg PO BEDTIME PRN PRN Reason: Insomnia Last Admin: 07/25/21 01:30 Dose: 50 mg Documented by: Home Medications Medication Instructions Recorded Confirmed Last Taken Type fluoxetine 20 mg capsule 20 mg PO DAILY 09/18/20 06/30/21 Unknown History folic acid 1 mg tablet 1 mg PO DAILY 09/18/20 06/30/21 Unknown History melatonin 5 mg tablet 5 mg PO BEDTIME PRN 06/30/21 06/30/21 Unknown History pantoprazole 40 mg tablet,delayed 40 mg PO DAILY 06/30/21 06/30/21 Unknown History release thiamine HCl (vitamin B1) 100 mg 100 mg PO DAILY 06/30/21 06/30/21 Unknown History tablet Physical Exam Vital Signs and Narrative: Vital Signs: Last Vital Signs Temp 97.6 F 07/25/21 06:00 Pulse 58 07/25/21 06:00 Resp 18 07/25/21 06:00 BP 149/67 H 07/25/21 06:00 Pulse Ox 100 07/25/21 06:00 BMI result Body Mass Index 24.2 Const: Other: Constitutional - Awake and Alert, No apparent distress Eyes - PERRLA, EOMI Cardiovascular - S1S2, RRR, No edema Respiratory - Normal lung expansion, Normal respiratory effort, No respiratory distress, CTA bilaterally Gastrointestinal - NT / ND; +BS; No rebound or guarding - No CVA tenderness Extremities - no calf tenderness bilaterally, no swelling Musculoskeletal - Normal inspection, normal ROM Skin - Warm/Dry Neurological - Alert & oriented x3, No focal deficit; CN 2-12 in tact bilaterally Results Labs CBC and Chem 7: 07/25/21 08:20 07/25/21 08:20 Labs: Laboratory Results - last 24 hr 07/25/21 07/25/21 07/25/21 08:20 08:20 08:20 MCV 72.1 L MCH 21.8 L MCHC 30.1 L RDW 16.5 H Plt Count 145 L D MPV 10.3 Immature Gran % (Auto) 0.3 Neut % (Auto) 67.3 Lymph % (Auto) 23.9 [place] % (Auto) 5.9 Eos % (Auto) 2.3 Baso % (Auto) 0.3 Lymph # (Auto) 0.7 L [place] # (Auto) 0.2 Eos # (Auto) 0.1 Baso # (Auto) 0.0 Abs Immat Gran (auto) 0.01 Absolute Neuts (auto) 2.1 Absolute Nucleated RBC 0.000 Nucleated RBC % (auto) 0.0 Anion Gap 9 L Estim Creat Clear Calc 96.7 Estimated GFR > 60 Fasting Glucose 97 Estimat Average Glucose 123 Hemoglobin A1c % 5.9 Calcium 9.3 Magnesium 1.9 Iron 20 L TIBC 455 H % Saturation 4 L Unsat Iron Binding 435 Total Bilirubin 0.7 AST 33 H ALT 16 Alkaline Phosphatase 145 H Total Protein 7.1 Albumin 3.5 Triglycerides 92 Cholesterol 180 LDL Cholesterol, Calc 102 HDL Cholesterol 60 Amylase Lipase 9 Vitamin B12 Folate TSH 4.54 H Free T4 0.74 Urine Test HIV 1&2 Ab/P24 Ag 4thGn 07/25/21 07/25/21 07/25/21 08:20 08:20 08:20 MCV MCH MCHC RDW Plt Count MPV Immature Gran % (Auto) Neut % (Auto) Lymph % (Auto) [place] % (Auto) Eos % (Auto) Baso % (Auto) Lymph # (Auto) [place] # (Auto) Eos # (Auto) Baso # (Auto) Abs Immat Gran (auto) Absolute Neuts (auto) Absolute Nucleated RBC Nucleated RBC % (auto) Anion Gap Estim Creat Clear Calc Estimated GFR Fasting Glucose Estimat Average Glucose Hemoglobin A1c % Calcium Magnesium Iron TIBC % Saturation Unsat Iron Binding Total Bilirubin AST ALT Alkaline Phosphatase Total Protein Albumin Triglycerides Cholesterol LDL Cholesterol, Calc HDL Cholesterol Amylase 36 Lipase Vitamin B12 479 Folate 14.3 TSH Free T4 Urine Test HIV 1&2 Ab/P24 Ag 4thGn Nonreactive 07/25/21 09:12 MCV MCH MCHC RDW Plt Count MPV Immature Gran % (Auto) Neut % (Auto) Lymph % (Auto) [place] % (Auto) Eos % (Auto) Baso % (Auto) Lymph # (Auto) [place] # (Auto) Eos # (Auto) Baso # (Auto) Abs Immat Gran (auto) Absolute Neuts (auto) Absolute Nucleated RBC Nucleated RBC % (auto) Anion Gap Estim Creat Clear Calc Estimated GFR Fasting Glucose Estimat Average Glucose Hemoglobin A1c % Calcium Magnesium Iron TIBC % Saturation Unsat Iron Binding Total Bilirubin AST ALT Alkaline Phosphatase Total Protein Albumin Triglycerides Cholesterol LDL Cholesterol, Calc HDL Cholesterol Amylase Lipase Vitamin B12 Folate TSH Free T4 Urine Test NEGATIVE HIV 1&2 Ab/P24 Ag 4thGn Assessment and Plan (1) Chronic pancreatitis: Status: Acute Plan This is a 46 yo F with a PMH of obesity - s/p Gastric bypass in 2013 (not with normal BMI), chronic alcohol abuse and dependence with resultant chronic pancreatitis, chronic anemia who is admitted to . Medical consult requested for routine Medical H&P. Medically stable at this time. Pt endorses last drink was about 4-5 days ago, monitor for withdrawal and start treatment if needed Continue her baseline meds Consider outpatient Gi referral upon d/c for chronic pancreatitis Will Sign off. Thanks you.
[2021-07-25] MEDS: oxyCODONE HCl Immed Release 5 MG TABLET PO ×2 (13:25→21:18)
[2021-07-25] MEDS: LORazepam 1 MG TABLET PO ×4 (13:25→20:05)
[2021-07-25] MEDS: Gabapentin 300 MG CAPSULE PO ×2 (14:29→20:06)
[2021-07-25 14:30] LABS: Folate 13.3 ng/mL (> or = 4.0); Vitamin B12 421 pg/mL (200-900)
[2021-07-25] MEDS: Ferrous Sulfate 324 MG TABLET.DR PO (16:59)
[2021-07-25] MEDS: Ascorbic Acid 250 MG TABLET PO (17:00)
[2021-07-25 18:00] VITALS: BP 122/78; PULSE 79; RESP 16; TEMP 36.4; O2SAT 98
[2021-07-25] MEDS: hydrOXYzine HCL 25 MG TABLET PO (18:51)
[2021-07-25] MEDS: Prazosin HCL 1 MG CAPSULE PO (20:05)
[2021-07-25] MEDS: Melatonin 3 MG TABLET 6 MG PO (20:06)
[2021-07-26 06:00] VITALS: BP 118/72; PULSE 72; TEMP 36.4; O2SAT 98
[2021-07-26] MEDS: Omeprazole 40 MG CAPSULE.DR PO (06:43)
[2021-07-26] MEDS: Folic Acid 1 MG TABLET PO (07:55)
[2021-07-26] MEDS: Gabapentin 300 MG CAPSULE PO ×3 (07:55→20:08)
[2021-07-26] MEDS: Thiamine HCL 100 MG TABLET 50 MG PO (07:55)
[2021-07-26] MEDS: Multivitamin TABLET 1 TAB PO (07:55)
[2021-07-26] MEDS: Ascorbic Acid 250 MG TABLET PO ×2 (07:56→16:51)
[2021-07-26] MEDS: LORazepam 1 MG TABLET PO ×5 (07:56→20:08)
[2021-07-26] MEDS: Ferrous Sulfate 324 MG TABLET.DR PO ×2 (07:56→16:51)
[2021-07-26] MEDS: Acetaminophen 325 MG TABLET 650 MG PO ×2 (08:03→17:32)
[2021-07-26] MEDS: Ondansetron ODT 4 MG TAB.RAPDIS TRANSLINGU (12:15)
[2021-07-26] MEDS: hydrOXYzine HCL 25 MG TABLET PO (12:15)
--- NOTE | 2021-07-26 14:44 | PC.NURSE ---
pt seen almost falling c/o hip and knee pain. sat in chair. vitals done. 133/76 83 100% RA. ASSISTED TO BEDROOM.
--- NOTE | 2021-07-26 15:05 | HO.PSYCHPN ---
Subjective Subjective Date of Service: 07/26/21 Reason For Visit: depression,AUD Subjective Notes: Conditional Voluntary Interim History: Giulia has significant alcohol WD symptoms that are being covered with ativan. She does have some abdominal pain and is seeking oxycodone. She was encouraged to use tylenol Mental Status Exam Mental Status Exam Narrative: Pt is alert and oriented; behavior is cooperative, tearful; patient is in emotional distress; dressed in hospital gown; neatly groomed with adequate hygiene; mood is described as depressed and affect congruent, face down cast and patient tearful; eye contact appropriate; Speech is normal rate, volume and prosody and not pressured; psychomotor retardation present; thought process is organized and goal directed; Thought content is on distraught over not being able to bear children, hating her body, consequences of alcohol dependency/abuse; thought content remains pertinent to relevant topics and without any delusional content, paranoid ideations or grandiosity; patient currently denies any SI or HI. There is no evidence of perceptual disturbance. Patients insight and judgment are impaired. Diagnostics Vital Signs (24Hr): Vital Signs - 24 hr 07/25/21 18:00 07/26/21 06:00 Temperature 97.6 F 97.6 F Pulse Rate 79 72 Respiratory Rate 16 Blood Pressure 122/78 118/72 Pulse Oximetry 98 98 BMI result Body Mass Index 24.2 Labs Results: 07/25/21 08:20 07/25/21 08:20 Labs: Laboratory Results - last 48 hr 07/25/21 07/25/21 07/25/21 08:20 08:20 08:20 WBC 3.1 L RBC 3.77 L Hgb 8.2 L Hct 27.2 L MCV 72.1 L MCH 21.8 L MCHC 30.1 L RDW 16.5 H Plt Count 145 L D MPV 10.3 Immature Gran % (Auto) 0.3 Neut % (Auto) 67.3 Lymph % (Auto) 23.9 [place] % (Auto) 5.9 Eos % (Auto) 2.3 Baso % (Auto) 0.3 Lymph # (Auto) 0.7 L [place] # (Auto) 0.2 Eos # (Auto) 0.1 Baso # (Auto) 0.0 Abs Immat Gran (auto) 0.01 Absolute Neuts (auto) 2.1 Absolute Nucleated RBC 0.000 Nucleated RBC % (auto) 0.0 Sodium 137 Potassium 3.5 Chloride 104 Carbon Dioxide 28 Anion Gap 9 L BUN 6 L Creatinine 0.68 Estim Creat Clear Calc 96.7 Estimated GFR > 60 Fasting Glucose 97 Estimat Average Glucose 123 Hemoglobin A1c % 5.9 Calcium 9.3 Magnesium 1.9 Iron 20 L TIBC 455 H % Saturation 4 L Unsat Iron Binding 435 Total Bilirubin 0.7 AST 33 H ALT 16 Alkaline Phosphatase 145 H Total Protein 7.1 Albumin 3.5 Triglycerides 92 Cholesterol 180 LDL Cholesterol, Calc 102 HDL Cholesterol 60 Amylase Lipase 9 Vitamin B12 Folate TSH 4.54 H Free T4 0.74 Urine Test HIV 1&2 Ab/P24 Ag 4thGn 07/25/21 07/25/21 07/25/21 08:20 08:20 08:20 WBC RBC Hgb Hct MCV MCH MCHC RDW Plt Count MPV Immature Gran % (Auto) Neut % (Auto) Lymph % (Auto) [place] % (Auto) Eos % (Auto) Baso % (Auto) Lymph # (Auto) [place] # (Auto) Eos # (Auto) Baso # (Auto) Abs Immat Gran (auto) Absolute Neuts (auto) Absolute Nucleated RBC Nucleated RBC % (auto) Sodium Potassium Chloride Carbon Dioxide Anion Gap BUN Creatinine Estim Creat Clear Calc Estimated GFR Fasting Glucose Estimat Average Glucose Hemoglobin A1c % Calcium Magnesium Iron TIBC % Saturation Unsat Iron Binding Total Bilirubin AST ALT Alkaline Phosphatase Total Protein Albumin Triglycerides Cholesterol LDL Cholesterol, Calc HDL Cholesterol Amylase 36 Lipase Vitamin B12 479 Folate 14.3 TSH Free T4 Urine Test HIV 1&2 Ab/P24 Ag 4thGn Nonreactive 07/25/21 07/25/21 08:20 09:12 WBC RBC Hgb Hct MCV MCH MCHC RDW Plt Count MPV Immature Gran % (Auto) Neut % (Auto) Lymph % (Auto) [place] % (Auto) Eos % (Auto) Baso % (Auto) Lymph # (Auto) [place] # (Auto) Eos # (Auto) Baso # (Auto) Abs Immat Gran (auto) Absolute Neuts (auto) Absolute Nucleated RBC Nucleated RBC % (auto) Sodium Potassium Chloride Carbon Dioxide Anion Gap BUN Creatinine Estim Creat Clear Calc Estimated GFR Fasting Glucose Estimat Average Glucose Hemoglobin A1c % Calcium Magnesium Iron TIBC % Saturation Unsat Iron Binding Total Bilirubin AST ALT Alkaline Phosphatase Total Protein Albumin Triglycerides Cholesterol LDL Cholesterol, Calc HDL Cholesterol Amylase Lipase Vitamin B12 421 Folate 13.3 TSH Free T4 Urine Test NEGATIVE HIV 1&2 Ab/P24 Ag 4thGn Medications Medications Current Medications Acetaminophen (Acetaminophen 325 Mg Tablet) 650 mg PO Q6H PRN PRN Reason: Headache/Pain Mild Scale (1-3) Last Admin: 07/26/21 08:03 Dose: 650 mg Documented by: Al Hydroxide/Mg Hydroxide (Magnesium Hydrox/Alum Hydrox 30 Ml Oral.Susp) 30 ml PO Q6H PRN PRN Reason: Heartburn/Nausea Ascorbic Acid (Ascorbic Acid 250 Mg Tablet) 250 mg PO BIDWM [facility] Last Admin: 07/26/21 07:56 Dose: 250 mg Documented by: Ferrous Sulfate (Ferrous Sulfate 324 Mg Tablet.) 324 mg PO BIDWM [facility] Last Admin: 07/26/21 07:56 Dose: 324 mg Documented by: Folic Acid (Folic Acid 1 Mg Tablet) 1 mg PO DAILY [facility] Last Admin: 07/26/21 07:55 Dose: 1 mg Documented by: Gabapentin (Gabapentin 300 Mg Capsule) 300 mg PO TID [facility] Last Admin: 07/26/21 14:23 Dose: 300 mg Documented by: Hydroxyzine HCl (Hydroxyzine Hcl 25 Mg Tablet) 25 mg PO Q6H PRN PRN Reason: Anxiety Last Admin: 07/26/21 12:15 Dose: 25 mg Documented by: Lorazepam (Lorazepam 1 Mg Tablet) 1 mg PO TID [facility]; Taper Stop: 07/31/21 14:59 Last Admin: 07/26/21 14:23 Dose: 1 mg Documented by: Lorazepam (Lorazepam 1 Mg Tablet) 1 mg PO Q2H PRN PRN Reason: for CIWA 6 to 10 Last Admin: 07/26/21 08:03 Dose: 1 mg Documented by: Lorazepam (Lorazepam 1 Mg Tablet) 2 mg PO Q2H PRN PRN Reason: for Ciwa 10 and above Magnesium Hydroxide (Milk Of Magnesia 30 Ml Oral.Susp) 30 ml PO DAILY PRN PRN Reason: Constipation Melatonin (Melatonin 3 Mg Tablet) 6 mg PO BEDTIME [facility] Last Admin: 07/25/21 20:06 Dose: 6 mg Documented by: Multivitamins/Vitamin C (Multivitamin Tablet) 1 tab PO DAILY [facility] Last Admin: 07/26/21 07:55 Dose: 1 tab Documented by: Omeprazole (Omeprazole 40 Mg Capsule.) 40 mg PO DAILY@0630 [facility] Last Admin: 07/26/21 06:43 Dose: 40 mg Documented by: Ondansetron HCl (Ondansetron Odt 4 Mg Tab.Rapdis) 4 mg TRANSLINGU Q6H PRN PRN Reason: Nausea Last Admin: 07/26/21 12:15 Dose: 4 mg Documented by: Prazosin HCl (Prazosin Hcl 1 Mg Capsule) 1 mg PO BEDTIME [facility]; Protocol Last Admin: 07/25/21 20:05 Dose: 1 mg Documented by: Thiamine HCl (Thiamine Hcl 100 Mg Tablet) 50 mg PO DAILY [facility] Last Admin: 07/26/21 07:55 Dose: 50 mg Documented by: Trazodone HCl (Trazodone Hcl 50 Mg Tablet) 50 mg PO BEDTIME PRN PRN Reason: Insomnia Last Admin: 07/25/21 01:30 Dose: 50 mg Documented by: Allergies Allergies Allergy/AdvReac Type Severity Reaction Status Date / Time No Known Allergies Allergy Verified 06/30/21 20:59 Assessment & Plan Assessment & Plan (1) Bipolar 1 disorder with moderate dulce maria: Status: Acute Code(s): F31.12 - Bipolar disorder, current episode manic without psychotic features, moderate (2) Chronic post-traumatic stress disorder (PTSD): Status: Acute Code(s): F43.12 - Post-traumatic stress disorder, chronic (3) H/O gastric bypass: Status: Acute Code(s): Z98.84 - Bariatric surgery status (4) Iron deficiency anemia: Status: Acute Code(s): D50.9 - Iron deficiency anemia, unspecified Plan Patient is a 46-year-old female with history of PTSD, depression, alcohol dependence for the past 3 years, history of manic episodes, iron deficient anemia, chronic and current pancreatitis due to alcoholism and history of gastric bypass surgery. Patient has daily, bothersome PTSD symptoms from both childhood and adult trauma Patient meets criteria for bipolar type 1 disorder; will make it a provisional diagnosis since manic episodes started only 3 years ago when she started drinking heavily; however she has a history of depression and some biological loading for bipolar dx; also patient's description of the number and duration of symptoms more likely points to organic bipolar disorder rather than symptoms mimicked by PTSD and alcohol intoxication. -currently patient is detoxing from alcohol with scheduled Ativan and gabapentin and PRNs based on CIWA. Patient also has mild to moderate abdominal pain from pancreatitis, however this is resolving and she is able to eat and drink. Still, will wait for patient to detox further and for abdominal pain to further subside Before starting mood stabilizer. Patient has iron deficient anemia from poor nutrition which is being treated. Patient reports SI has resolved Will consider trial of lithium given patient's depression and it intermittent SI PLAN CV Q 15 minute checks Ativan 1 mg t.i.d. for 2 days and then taper Gabapentin 300 mg t.i.d. for now, will taper CIWA with Ativan p.r.n. for breakthrough symptoms Patient agrees to start prazosin 1 mg q.h.s. for frequent upsetting nightmares based on trauma Starting iron 324 mg b.i.d. with meals plus vitamin-C for help with absorption given microcytic anemia with positive iron studies Labs reviewed from sending hospital: Negative urine ; lytes, BUN/creatinine within normal limits; alk-phos elevated but otherwise LFTs within normal limits; UA negative; COVID negative; negative occult stool. As mentioned patient has microcytic anemia, hemoglobin currently 8.4 but has remained stable; sign writer hand also reviewed abdominal ultrasound which did show some borderline gallbladder wall thickening and could not completely rule out cholecystitis, however patient has chronic pancreatitis which remains underlying diagnosis 07/25/21 - continue above treatment plan I spent minutes with the patient and/or on the patient floor today, greater than?50% of which was spent counseling/coordinating care. Patient educated on: diagnosis, medication risk/benefits and substance abuse Informed Consent: further education needed Reason for contiued inpatient stay Substantial Risk for: rapid decompensation
[2021-07-26 16:49] VITALS: BP 144/89; PULSE 87; RESP 18; TEMP 36.8; O2SAT 100
[2021-07-26] MEDS: oxyCODONE HCl Immed Release 5 MG TABLET PO (17:32)
[2021-07-26] MEDS: Melatonin 3 MG TABLET 6 MG PO (20:08)
[2021-07-26] MEDS: Prazosin HCL 1 MG CAPSULE PO (20:08)
[2021-07-27 06:00] VITALS: BP 119/72; PULSE 80; TEMP 36.6; O2SAT 98
[2021-07-27] MEDS: Omeprazole 40 MG CAPSULE.DR PO (06:19)
[2021-07-27] MEDS: Folic Acid 1 MG TABLET PO (08:19)
[2021-07-27] MEDS: Ascorbic Acid 250 MG TABLET PO ×2 (08:19→16:00)
[2021-07-27] MEDS: LORazepam 1 MG TABLET PO ×2 (08:19→20:30)
[2021-07-27] MEDS: Ferrous Sulfate 324 MG TABLET.DR PO ×2 (08:19→16:00)
[2021-07-27] MEDS: Gabapentin 300 MG CAPSULE PO ×3 (08:19→20:30)
[2021-07-27] MEDS: Multivitamin TABLET 1 TAB PO (08:19)
[2021-07-27] MEDS: Thiamine HCL 100 MG TABLET 50 MG PO (08:19)
[2021-07-27] MEDS: Acetaminophen 325 MG TABLET 650 MG PO ×2 (08:29→16:00)
[2021-07-27] MEDS: docosanoL 10 % Cream 2 GM TUBE 1 APPL TOPICAL ×4 (10:25→21:36)
[2021-07-27] MEDS: oxyCODONE HCl Immed Release 5 MG TABLET PO (10:42)
[2021-07-27] MEDS: Ondansetron ODT 4 MG TAB.RAPDIS TRANSLINGU (12:06)
[2021-07-27] MEDS: hydrOXYzine HCL 25 MG TABLET PO ×2 (12:36→18:49)
--- NOTE | 2021-07-27 15:16 | HO.PSYCHPN ---
Subjective Subjective Date of Service: 07/27/21 Reason For Visit: depression,AUD Interim History: Giulia is continuing to get through her WD. CIWA scale can be done less often She complains of hip pain, and agree to one dose of oxycodone a day for now Medication Compliance: Yes Side effects from medications: No Mental Status Exam Mental Status Exam Narrative: Pt is alert and oriented; behavior is cooperative, tearful; patient is in emotional distress; dressed in hospital gown; neatly groomed with adequate hygiene; mood is described as depressed and affect congruent, face down cast and patient tearful; eye contact appropriate; Speech is normal rate, volume and prosody and not pressured; psychomotor retardation present; thought process is organized and goal directed; Thought content is on distraught over not being able to bear children, hating her body, consequences of alcohol dependency/abuse; thought content remains pertinent to relevant topics and without any delusional content, paranoid ideations or grandiosity; patient currently denies any SI or HI. There is no evidence of perceptual disturbance. Patients insight and judgment are impaired. Diagnostics Vital Signs (24Hr): Vital Signs - 24 hr 07/26/21 16:49 07/27/21 06:00 Temperature 98.2 F 97.8 F Pulse Rate 87 80 Respiratory Rate 18 Blood Pressure 144/89 H 119/72 Pulse Oximetry 100 98 BMI result Body Mass Index 24.2 Labs Results: 07/25/21 08:20 07/25/21 08:20 Medications Medications Current Medications Acetaminophen (Acetaminophen 325 Mg Tablet) 650 mg PO Q6H PRN PRN Reason: Headache/Pain Mild Scale (1-3) Last Admin: 07/27/21 08:29 Dose: 650 mg Documented by: Al Hydroxide/Mg Hydroxide (Magnesium Hydrox/Alum Hydrox 30 Ml Oral.Susp) 30 ml PO Q6H PRN PRN Reason: Heartburn/Nausea Ascorbic Acid (Ascorbic Acid 250 Mg Tablet) 250 mg PO BIDWM [facility] Last Admin: 07/27/21 08:19 Dose: 250 mg Documented by: Docosanol (Docosanol 10 % Cream 2 Gm Tube) 1 appl TOPICAL 5XD [facility]; Protocol Last Admin: 07/27/21 13:59 Dose: 1 appl Documented by: Ferrous Sulfate (Ferrous Sulfate 324 Mg Tablet.) 324 mg PO BIDWM [facility] Last Admin: 07/27/21 08:19 Dose: 324 mg Documented by: Folic Acid (Folic Acid 1 Mg Tablet) 1 mg PO DAILY [facility] Last Admin: 07/27/21 08:19 Dose: 1 mg Documented by: Gabapentin (Gabapentin 300 Mg Capsule) 300 mg PO TID [facility] Last Admin: 07/27/21 14:02 Dose: 300 mg Documented by: Hydroxyzine HCl (Hydroxyzine Hcl 25 Mg Tablet) 25 mg PO Q6H PRN PRN Reason: Anxiety Last Admin: 07/27/21 12:36 Dose: 25 mg Documented by: Lorazepam (Lorazepam 1 Mg Tablet) 1 mg PO BID [facility]; Taper Stop: 07/31/21 14:59 Last Admin: 07/27/21 08:19 Dose: 1 mg Documented by: Lorazepam (Lorazepam 1 Mg Tablet) 1 mg PO Q2H PRN PRN Reason: for CIWA 6 to 10 Last Admin: 07/26/21 16:51 Dose: 1 mg Documented by: Magnesium Hydroxide (Milk Of Magnesia 30 Ml Oral.Susp) 30 ml PO DAILY PRN PRN Reason: Constipation Melatonin (Melatonin 3 Mg Tablet) 6 mg PO BEDTIME [facility] Last Admin: 07/26/21 20:08 Dose: 6 mg Documented by: Multivitamins/Vitamin C (Multivitamin Tablet) 1 tab PO DAILY [facility] Last Admin: 07/27/21 08:19 Dose: 1 tab Documented by: Omeprazole (Omeprazole 40 Mg Capsule.Dr) 40 mg PO DAILY@0630 [facility] Last Admin: 07/27/21 06:19 Dose: 40 mg Documented by: Ondansetron HCl (Ondansetron Odt 4 Mg Tab.Rapdis) 4 mg TRANSLINGU Q6H PRN PRN Reason: Nausea Last Admin: 07/27/21 12:06 Dose: 4 mg Documented by: Oxycodone HCl (Oxycodone Hcl Immed Release 5 Mg Tablet) 5 mg PO DAILY PRN PRN Reason: Pain, Severe (Pain Scale 7-10) Last Admin: 07/27/21 10:42 Dose: 5 mg Documented by: Prazosin HCl (Prazosin Hcl 1 Mg Capsule) 1 mg PO BEDTIME [facility]; Protocol Last Admin: 07/26/21 20:08 Dose: 1 mg Documented by: Thiamine HCl (Thiamine Hcl 100 Mg Tablet) 50 mg PO DAILY [facility] Last Admin: 07/27/21 08:19 Dose: 50 mg Documented by: Trazodone HCl (Trazodone Hcl 50 Mg Tablet) 50 mg PO BEDTIME PRN PRN Reason: Insomnia Last Admin: 07/25/21 01:30 Dose: 50 mg Documented by: Allergies Allergies Allergy/AdvReac Type Severity Reaction Status Date / Time No Known Allergies Allergy Verified 06/30/21 20:59 Assessment & Plan Assessment & Plan (1) Bipolar 1 disorder with moderate dulce maria: Status: Acute Code(s): F31.12 - Bipolar disorder, current episode manic without psychotic features, moderate (2) Chronic post-traumatic stress disorder (PTSD): Status: Acute Code(s): F43.12 - Post-traumatic stress disorder, chronic (3) H/O gastric bypass: Status: Acute Code(s): Z98.84 - Bariatric surgery status (4) Iron deficiency anemia: Status: Acute Code(s): D50.9 - Iron deficiency anemia, unspecified Plan Patient is a 46-year-old female with history of PTSD, depression, alcohol dependence for the past 3 years, history of manic episodes, iron deficient anemia, chronic and current pancreatitis due to alcoholism and history of gastric bypass surgery. Patient has daily, bothersome PTSD symptoms from both childhood and adult trauma Patient meets criteria for bipolar type 1 disorder; will make it a provisional diagnosis since manic episodes started only 3 years ago when she started drinking heavily; however she has a history of depression and some biological loading for bipolar dx; also patient's description of the number and duration of symptoms more likely points to organic bipolar disorder rather than symptoms mimicked by PTSD and alcohol intoxication. -currently patient is detoxing from alcohol with scheduled Ativan and gabapentin and PRNs based on CIWA. Patient also has mild to moderate abdominal pain from pancreatitis, however this is resolving and she is able to eat and drink. Still, will wait for patient to detox further and for abdominal pain to further subside Before starting mood stabilizer. Patient has iron deficient anemia from poor nutrition which is being treated. Patient reports SI has resolved Will consider trial of lithium given patient's depression and it intermittent SI PLAN CV Q 15 minute checks Ativan 1 mg t.i.d. for 2 days and then taper Gabapentin 300 mg t.i.d. for now, will taper CIWA with Ativan p.r.n. for breakthrough symptoms Patient agrees to start prazosin 1 mg q.h.s. for frequent upsetting nightmares based on trauma Starting iron 324 mg b.i.d. with meals plus vitamin-C for help with absorption given microcytic anemia with positive iron studies Labs reviewed from sending hospital: Negative urine ; lytes, BUN/creatinine within normal limits; alk-phos elevated but otherwise LFTs within normal limits; UA negative; COVID negative; negative occult stool. As mentioned patient has microcytic anemia, hemoglobin currently 8.4 but has remained stable; lead technical writer also reviewed abdominal ultrasound which did show some borderline gallbladder wall thickening and could not completely rule out cholecystitis, however patient has chronic pancreatitis which remains underlying diagnosis 07/25/21 - continue above treatment plan 07/26/21 and 07/27/21 - continue plan without change I spent minutes with the patient and/or on the patient floor today, greater than?50% of which was spent counseling/coordinating care. Patient educated on: diagnosis and medication risk/benefits Informed Consent: further education needed Reason for contiued inpatient stay Substantial Risk for: rapid decompensation
[2021-07-27 15:56] VITALS: BP 138/81; PULSE 74; RESP 18; TEMP 36.6; O2SAT 100
[2021-07-27] MEDS: traZODone HCL 50 MG TABLET PO (20:30)
[2021-07-27] MEDS: Melatonin 3 MG TABLET 6 MG PO (20:30)
[2021-07-27] MEDS: Prazosin HCL 1 MG CAPSULE PO (20:30)
[2021-07-27 20:33] VITALS: BP 122/74; PULSE 89
[2021-07-28] MEDS: LORazepam 1 MG TABLET PO ×5 (04:08→21:02)
[2021-07-28 06:00] VITALS: BP 126/80; PULSE 79; RESP 18; TEMP 36.5; O2SAT 99
[2021-07-28] MEDS: Omeprazole 40 MG CAPSULE.DR PO (06:23)
[2021-07-28] MEDS: docosanoL 10 % Cream 2 GM TUBE 1 APPL TOPICAL ×5 (06:25→21:06)
[2021-07-28] MEDS: Thiamine HCL 100 MG TABLET 50 MG PO (08:51)
[2021-07-28] MEDS: Folic Acid 1 MG TABLET PO (08:51)
[2021-07-28] MEDS: Gabapentin 300 MG CAPSULE PO ×3 (08:51→21:02)
[2021-07-28] MEDS: Multivitamin TABLET 1 TAB PO (08:51)
[2021-07-28] MEDS: Ferrous Sulfate 324 MG TABLET.DR PO ×2 (08:51→18:14)
[2021-07-28] MEDS: Ascorbic Acid 250 MG TABLET PO ×2 (08:51→18:15)
--- NOTE | 2021-07-28 09:20 | P.PNPSI_ITS ---
Subjective Subjective Date of Service: 07/28/21 Reason For Visit: depression,AUD Interim History: Patient reports that her mood is little better and she denies any SI however she is still depressed and frequently tearful. Patient describes her fractured relationship with her mother and how she feels she can never please her enough. Visiting also is patient's maternal aunt Evelyne who is warm and supportive. Patient discussed at length her relationship with her mom and how she always f eels inadequate; patient realizes however that these feelings of hers date back to her own childhood and that it will take time and therapy to process her relationship with her mom and her other life experiences in order to developed a new perspective. Patient expressed concern because her mother has been threatening with a Section 35 and also to take control of her bank account and money. She is worried that her Sunny will be kowtowed by their insistence. Patient reports that her withdrawal symptoms are being well treated though she is still shaky and sweaty at times. Wire Welder discussed, reviewing risks/side effects of mood stabilizer medication, including lithium and patient feels ready to start a trial of lithium. She asks that Sunny be contacted and included in discussions. Patient's aunt corroborates that her sister, patient's mother, is very verbally authoritarian and difficult. Discussed patient's history of substance abuse and she reports there have been a two time she tried to get sober for the past few years, most recently this past May. She agrees that it will take much support and understood and appreciated the idea of a sponsor, someone she can call when she is having cravings or feeling tempted to relapse. Patient also shared further that during her manic episode she was missing for 2 days. Mental Status Exam Mental Status Exam Narrative: Pt is alert and oriented; behavior is cooperative, tearful; patient is in emotional distress; dressed in hospital gown; neatly groomed with adequate hygiene; mood is described as depressed and affect congruent, face down cast and patient tearful; eye contact appropriate; Speech is normal rate, volume and prosody and not pressured;? psychomotor retardation present; thought process is organized and goal directed; Thought content is on troubling relationship with her mother as well as on treatment; thought content remains pertinent to relevant topics and without any delusional content, paranoid ideations or grandiosity; patient denies any SI or HI. There is no evidence of perceptual disturbance.? Patients insight and judgment are impaired but improving. Diagnostics Vital Signs (24Hr): Vital Signs - 24 hr 07/27/21 15:56 07/27/21 20:33 07/28/21 06:00 Temperature 97.8 F 97.7 F Pulse Rate 74 89 79 Respiratory Rate 18 18 Blood Pressure 138/81 122/74 126/80 Pulse Oximetry 100 99 BMI result Body Mass Index 24.2 Labs Results: 07/25/21 08:20 07/25/21 08:20 Medications Medications Current Medications Acetaminophen (Acetaminophen 325 Mg Tablet) 650 mg PO Q6H PRN PRN Reason: Headache/Pain Mild Scale (1-3) Last Admin: 07/27/21 16:00 Dose: 650 mg Documented by: Al Hydroxide/Mg Hydroxide (Magnesium Hydrox/Alum Hydrox 30 Ml Oral.Susp) 30 ml PO Q6H PRN PRN Reason: Heartburn/Nausea Ascorbic Acid (Ascorbic Acid 250 Mg Tablet) 250 mg PO BIDWM [facility] Last Admin: 07/28/21 08:51 Dose: 250 mg Documented by: Docosanol (Docosanol 10 % Cream 2 Gm Tube) 1 appl TOPICAL 5XD [facility]; Protocol Last Admin: 07/28/21 08:56 Dose: 1 appl Documented by: Ferrous Sulfate (Ferrous Sulfate 324 Mg Tablet.) 324 mg PO BIDWM [facility] Last Admin: 07/28/21 08:51 Dose: 324 mg Documented by: Folic Acid (Folic Acid 1 Mg Tablet) 1 mg PO DAILY [facility] Last Admin: 07/28/21 08:51 Dose: 1 mg Documented by: Gabapentin (Gabapentin 300 Mg Capsule) 300 mg PO TID [facility] Last Admin: 07/28/21 08:51 Dose: 300 mg Documented by: Hydroxyzine HCl (Hydroxyzine Hcl 25 Mg Tablet) 25 mg PO Q6H PRN PRN Reason: Anxiety Last Admin: 07/27/21 18:49 Dose: 25 mg Documented by: Lorazepam (Lorazepam 1 Mg Tablet) 1 mg PO BID [facility]; Taper Stop: 07/31/21 14:59 Last Admin: 07/28/21 08:51 Dose: 1 mg Documented by: Lorazepam (Lorazepam 1 Mg Tablet) 1 mg PO Q2H PRN PRN Reason: for CIWA 6 to 10 Last Admin: 07/28/21 04:08 Dose: 1 mg Documented by: Magnesium Hydroxide (Milk Of Magnesia 30 Ml Oral.Susp) 30 ml PO DAILY PRN PRN Reason: Constipation Melatonin (Melatonin 3 Mg Tablet) 6 mg PO BEDTIME [facility] Last Admin: 07/27/21 20:30 Dose: 6 mg Documented by: Multivitamins/Vitamin C (Multivitamin Tablet) 1 tab PO DAILY [facility] Last Admin: 07/28/21 08:51 Dose: 1 tab Documented by: Omeprazole (Omeprazole 40 Mg Capsule.Dr) 40 mg PO DAILY@0630 [facility] Last Admin: 07/28/21 06:23 Dose: 40 mg Documented by: Ondansetron HCl (Ondansetron Odt 4 Mg Tab.Rapdis) 4 mg TRANSLINGU Q6H PRN PRN Reason: Nausea Last Admin: 07/27/21 12:06 Dose: 4 mg Documented by: Oxycodone HCl (Oxycodone Hcl Immed Release 5 Mg Tablet) 5 mg PO DAILY PRN PRN Reason: Pain, Severe (Pain Scale 7-10) Last Admin: 07/27/21 10:42 Dose: 5 mg Documented by: Prazosin HCl (Prazosin Hcl 1 Mg Capsule) 1 mg PO BEDTIME [facility]; Protocol Last Admin: 07/27/21 20:30 Dose: 1 mg Documented by: Thiamine HCl (Thiamine Hcl 100 Mg Tablet) 50 mg PO DAILY [facility] Last Admin: 07/28/21 08:51 Dose: 50 mg Documented by: Trazodone HCl (Trazodone Hcl 50 Mg Tablet) 50 mg PO BEDTIME PRN PRN Reason: Insomnia Last Admin: 07/27/21 20:30 Dose: 50 mg Documented by: Allergies Allergies Allergy/AdvReac Type Severity Reaction Status Date / Time No Known Allergies Allergy Verified 06/30/21 20:59 Assessment & Plan Assessment & Plan (1) Bipolar 1 disorder with moderate dulce maria: Status: Acute Code(s): F31.12 - Bipolar disorder, current episode manic without psychotic features, moderate (2) Chronic post-traumatic stress disorder (PTSD): Status: Acute Code(s): F43.12 - Post-traumatic stress disorder, chronic (3) H/O gastric bypass: Status: Acute Code(s): Z98.84 - Bariatric surgery status (4) Iron deficiency anemia: Status: Acute Code(s): D50.9 - Iron deficiency anemia, unspecified Plan Patient is a 46-year-old female with history of PTSD, depression, alcohol dependence for the past 3 years, history of manic episodes, iron deficient anemia, chronic and current pancreatitis due to alcoholism and history of gastric bypass surgery. Patient has daily, bothersome PTSD symptoms from both childhood and adult trauma Patient meets criteria for bipolar type 1 disorder; will make it a provisional diagnosis since manic episodes started only 3 years ago when she started drinking heavily; however she has a history of depression and some biological loading for bipolar dx; also patient's description of the number and duration of symptoms more likely points to organic bipolar disorder rather than symptoms mimicked by PTSD and alcohol intoxication. -currently patient is detoxing from alcohol with scheduled Ativan and gabapentin and PRNs based on CIWA. Patient also has mild to moderate abdominal pain from pancreatitis, however this is resolving and she is able to eat and drink. Still, will wait for patient to detox further and for abdominal pain to further subside Before starting mood stabilizer. Patient has iron deficient anemia from poor nutrition which is being treated. Patient reports SI has resolved 3/7 SI resolved; remains depressed but is focused on treatment. Patient still in alcohol withdrawal and continuing on Ativan taper, still getting some Ativan for breakthrough symptoms. Patient would like to start a trial of lithium for bipolar disorder; gag writer reviewed risks/side effects of this medication to which patient agrees; given history of chronic pancreatitis, Depakote is not advised. PLAN CV Q 15 minute checks Ativan 1 mg t.i.d. for 2 days and then taper Gabapentin 300 mg t.i.d. for now, will taper CIWA with Ativan p.r.n. for breakthrough symptoms Patient agrees to start prazosin 1 mg q.h.s. for frequent upsetting nightmares based on trauma Starting iron 324 mg b.i.d. with meals plus vitamin-C for help with absorption given microcytic anemia with positive iron studies Labs reviewed from sending hospital: Negative urine ; lytes, BUN/creatinine within normal limits; alk- phos elevated but otherwise LFTs within normal limits; UA negative; COVID negative; negative occult stool. As mentioned patient has microcytic anemia, hemoglobin currently 8.4 but has remained stable; gag writer also reviewed abdominal ultrasound which did show some borderline gallbladder wall thickening and could not completely rule out cholecystitis, however patient has chronic pancreatitis which remains underlying diagnosis I spent minutes with the patient and/or on the patient floor today, greater than?50% of which was spent counseling/coordinating care. Patient educated on: diagnosis, medication risk/benefits, substance abuse and therapeutic strategies Informed Consent: understands Reason for contiued inpatient stay Substantial Risk for: rapid decompensation
[2021-07-28] MEDS: hydrOXYzine HCL 25 MG TABLET PO (11:11)
[2021-07-28] MEDS: Lithium Carbonate ER 300 MG TABLET.ER PO ×2 (12:59→21:06)
[2021-07-28 15:50] VITALS: BP 111/74; PULSE 84; TEMP 37.1
[2021-07-28] MEDS: Acetaminophen 325 MG TABLET 650 MG PO (18:13)
[2021-07-28] MEDS: oxyCODONE HCl Immed Release 5 MG TABLET PO (18:14)
[2021-07-28 21:00] VITALS: BP 104/64; PULSE 80; TEMP 36.3
[2021-07-28] MEDS: Melatonin 3 MG TABLET 6 MG PO (21:02)
[2021-07-28] MEDS: Prazosin HCL 1 MG CAPSULE PO (21:03)
[2021-07-28] MEDS: traZODone HCL 50 MG TABLET PO (21:05)
[2021-07-29 06:00] VITALS: BP 105/69; PULSE 76; RESP 16; TEMP 36.8; O2SAT 100
[2021-07-29] MEDS: Omeprazole 40 MG CAPSULE.DR PO (06:06)
[2021-07-29] MEDS: docosanoL 10 % Cream 2 GM TUBE 1 APPL TOPICAL ×5 (06:06→20:22)
[2021-07-29] MEDS: Ferrous Sulfate 324 MG TABLET.DR PO ×2 (07:23→17:52)
[2021-07-29] MEDS: Ascorbic Acid 250 MG TABLET PO ×2 (07:23→17:51)
[2021-07-29] MEDS: Gabapentin 300 MG CAPSULE PO ×3 (08:38→20:20)
[2021-07-29] MEDS: Multivitamin TABLET 1 TAB PO (08:38)
[2021-07-29] MEDS: Folic Acid 1 MG TABLET PO (08:38)
[2021-07-29] MEDS: LORazepam 1 MG TABLET PO ×2 (08:38→21:26)
[2021-07-29] MEDS: Thiamine HCL 100 MG TABLET 50 MG PO (08:38)
[2021-07-29] MEDS: Acetaminophen 325 MG TABLET 650 MG PO (08:46)
[2021-07-29] MEDS: oxyCODONE HCl Immed Release 5 MG TABLET PO ×2 (09:37→17:51)
[2021-07-29] MEDS: hydrOXYzine HCL 25 MG TABLET PO ×2 (11:38→17:51)
[2021-07-29 16:18] VITALS: BP 141/77; PULSE 76; RESP 16; TEMP 36.4; O2SAT 100
--- NOTE | 2021-07-29 17:20 | P.PNPSI_ITS ---
Subjective Subjective Date of Service: 07/29/21 Reason For Visit: depression,AUD Interim History: pt said she was happy this morning, but after talking with her mother, who refused to come visit, she became despondent, feeling abandoned, tearful. Pt and teletypewriter operator engaged in a CBT therapeutic excercise to address her reation to her mother; pt reported finding it helpful and agreed to try and implement over next day. No SI; says meds seem to be helping; denies side-effect. Mental Status Exam Mental Status Exam Narrative: Pt is alert and oriented; behavior is cooperative, tearful at times; dressed in casual cloths, overall well groomed with adequate hygiene; mood is described as depressed and affect congruent, face down cast and patient tearful; eye contact appropriate; Speech is normal rate, volume and prosody and not pressured;? psychomotor retardation present; thought process is organized and goal directed; Thought content is on troubling relationship with her mother as well as on treatment; thought content remains pertinent to relevant topics and without any delusional content, paranoid ideations or grandiosity; patient denies any SI or HI. There is no evidence of perceptual disturbance.? Patients insight and judgment are impaired but improving. Diagnostics Vital Signs (24Hr): Vital Signs - 24 hr 07/28/21 21:00 07/29/21 06:00 07/29/21 16:18 Temperature 97.3 F 98.3 F 97.5 F Pulse Rate 80 76 76 Respiratory Rate 16 16 Blood Pressure 104/64 105/69 141/77 H Pulse Oximetry 100 100 BMI result Body Mass Index 24.2 Labs Results: 07/25/21 08:20 07/25/21 08:20 Medications Medications Current Medications Acetaminophen (Acetaminophen 325 Mg Tablet) 975 mg PO TID PRN PRN Reason: Headache/Pain Mild Scale (1-3) Al Hydroxide/Mg Hydroxide (Magnesium Hydrox/Alum Hydrox 30 Ml Oral.Susp) 30 ml PO Q6H PRN PRN Reason: Heartburn/Nausea Ascorbic Acid (Ascorbic Acid 250 Mg Tablet) 250 mg PO BIDWM [facility] Last Admin: 07/29/21 07:23 Dose: 250 mg Documented by: Docosanol (Docosanol 10 % Cream 2 Gm Tube) 1 appl TOPICAL 5XD [facility]; Protocol Last Admin: 07/29/21 14:08 Dose: 1 appl Documented by: Ferrous Sulfate (Ferrous Sulfate 324 Mg Tablet.) 324 mg PO BIDWM [facility] Last Admin: 07/29/21 07:23 Dose: 324 mg Documented by: Folic Acid (Folic Acid 1 Mg Tablet) 1 mg PO DAILY [facility] Last Admin: 07/29/21 08:38 Dose: 1 mg Documented by: Gabapentin (Gabapentin 300 Mg Capsule) 300 mg PO TID [facility] Stop: 07/29/21 23:59 Last Admin: 07/29/21 14:08 Dose: 300 mg Documented by: Gabapentin (Gabapentin 300 Mg Capsule) 300 mg PO BID [facility] Stop: 08/01/21 23:50 Gabapentin (Gabapentin 300 Mg Capsule) 300 mg PO DAILY [facility] Stop: 08/04/21 23:50 Hydroxyzine HCl (Hydroxyzine Hcl 25 Mg Tablet) 25 mg PO Q6H PRN PRN Reason: Anxiety Last Admin: 07/29/21 11:38 Dose: 25 mg Documented by: [place] Carbonate ([place] Carbonate Er 300 Mg Tablet.Er) 600 mg PO BEDTIME [facility] Lorazepam (Lorazepam 1 Mg Tablet) 1 mg PO DAILY [facility]; Taper Stop: 07/31/21 14:59 Last Admin: 07/29/21 08:38 Dose: 1 mg Documented by: Lorazepam (Lorazepam 1 Mg Tablet) 1 mg PO Q2H PRN PRN Reason: for CIWA 6 to 10 Last Admin: 07/28/21 15:50 Dose: 1 mg Documented by: Magnesium Hydroxide (Milk Of Magnesia 30 Ml Oral.Susp) 30 ml PO DAILY PRN PRN Reason: Constipation Melatonin (Melatonin 3 Mg Tablet) 6 mg PO BEDTIME [facility] Last Admin: 07/28/21 21:02 Dose: 6 mg Documented by: Multivitamins/Vitamin C (Multivitamin Tablet) 1 tab PO DAILY [facility] Last Admin: 07/29/21 08:38 Dose: 1 tab Documented by: Naltrexone HCl (Naltrexone Hcl 50 Mg Tablet) 25 mg PO DAILY [facility] Omeprazole (Omeprazole 40 Mg Capsule.) 40 mg PO DAILY@0630 [facility] Last Admin: 07/29/21 06:06 Dose: 40 mg Documented by: Ondansetron HCl (Ondansetron Odt 4 Mg Tab.Rapdis) 4 mg TRANSLINGU Q6H PRN PRN Reason: Nausea Last Admin: 07/27/21 12:06 Dose: 4 mg Documented by: Oxycodone HCl (Oxycodone Hcl Immed Release 5 Mg Tablet) 5 mg PO BID PRN PRN Reason: Pain, Moderate (Pain Scale 4-6 Last Admin: 07/29/21 09:37 Dose: 5 mg Documented by: Prazosin HCl (Prazosin Hcl 1 Mg Capsule) 1 mg PO BEDTIME [facility]; Protocol Last Admin: 07/28/21 21:03 Dose: 1 mg Documented by: Thiamine HCl (Thiamine Hcl 100 Mg Tablet) 50 mg PO DAILY [facility] Last Admin: 07/29/21 08:38 Dose: 50 mg Documented by: Trazodone HCl (Trazodone Hcl 50 Mg Tablet) 50 mg PO BEDTIME PRN PRN Reason: Insomnia Last Admin: 07/28/21 21:05 Dose: 50 mg Documented by: Allergies Allergies Allergy/AdvReac Type Severity Reaction Status Date / Time No Known Allergies Allergy Verified 06/30/21 20:59 Assessment & Plan Assessment & Plan (1) Bipolar 1 disorder with moderate dulce maria: Status: Acute Code(s): F31.12 - Bipolar disorder, current episode manic without psychotic features, moderate (2) Chronic post-traumatic stress disorder (PTSD): Status: Acute Code(s): F43.12 - Post-traumatic stress disorder, chronic (3) H/O gastric bypass: Status: Acute Code(s): Z98.84 - Bariatric surgery status (4) Iron deficiency anemia: Status: Acute Code(s): D50.9 - Iron deficiency anemia, unspecified Plan Patient is a 46-year-old female with history of PTSD, depression, alcohol dependence for the past 3 years, history of manic episodes, iron deficient anemia, chronic and current pancreatitis due to alcoholism and history of gastric bypass surgery. Patient has daily, bothersome PTSD symptoms from both childhood and adult trauma Patient meets criteria for bipolar type 1 disorder; will make it a provisional diagnosis since manic episodes started only 3 years ago when she started drinking heavily; however she has a history of depression and some biological lo ading for bipolar dx; also patient's description of the number and duration of symptoms more likely points to organic bipolar disorder rather than symptoms mimicked by PTSD and alcohol intoxication. -currently patient is detoxing from alcohol with scheduled Ativan and gabapentin and PRNs based on CIWA. Patient also has mild to moderate abdominal pain from pancreatitis, however this is resolving and she is able to eat and drink. Still, will wait for patient to detox further and for abdominal pain to further subside Before starting mood stabilizer. Patient has iron deficient anemia from poor nutrition which is being treated. Patient reports SI has resolved 3/7 SI resolved; remains depressed but is focused on treatment. Patient still in alcohol withdrawal and continuing on Ativan taper, still getting some Ativan for breakthrough symptoms. Patient would like to start a trial of lithium for bipolar disorder; teletypewriter operator reviewed risks/side effects of this medication to which patient agrees; given history of chronic pancreatitis, Depakote is not advised. 8 tolerating meds; working on emotional lability; no SI PLAN CV Q 15 minute checks Gabapentin /ativan taper likely CIWA can be dc'd prazosin 1 mg q.h.s. for frequent upsetting nightmares based on trauma Startied iron 324 mg b.i.d. with meals plus vitamin-C for help with absorption given microcytic anemia with positive iron studies Labs reviewed from sending hospital: Negative urine ; lytes, BUN/creatinine within normal limits; alk- phos elevated but otherwise LFTs within normal limits; UA negative; COVID negative; negative occult stool. As mentioned patient has microcytic anemia, hemoglobin currently 8.4 but has remained stable; teletypewriter operator also reviewed abdominal ultrasound which did show some borderline gallbladder wall thickening and could not completely rule out cholecystitis, however patient has chronic pancreatitis which remains underlying diagnosis I spent minutes with the patient and/or on the patient floor today, greater than?50% of which was spent counseling/coordinating care. Patient educated on: diagnosis, medication risk/benefits and therapeutic strategies Informed Consent: understands Reason for contiued inpatient stay Substantial Risk for: med/psych decompensation
[2021-07-29] MEDS: Melatonin 3 MG TABLET 6 MG PO (20:20)
[2021-07-29] MEDS: Prazosin HCL 1 MG CAPSULE PO (20:20)
[2021-07-29] MEDS: Lithium Carbonate ER 300 MG TABLET.ER 600 MG PO (20:20)
[2021-07-29] MEDS: traZODone HCL 50 MG TABLET PO (21:26)
[2021-07-30] MEDS: Omeprazole 40 MG CAPSULE.DR PO (05:42)
[2021-07-30] MEDS: docosanoL 10 % Cream 2 GM TUBE 1 APPL TOPICAL ×4 (05:42→16:58)
[2021-07-30] MEDS: Acetaminophen 325 MG TABLET 975 MG PO ×2 (05:55→21:01)
[2021-07-30 06:00] VITALS: BP 109/70; PULSE 72; RESP 16; TEMP 36.3; O2SAT 97
[2021-07-30] MEDS: Ferrous Sulfate 324 MG TABLET.DR PO ×2 (08:59→16:57)
[2021-07-30] MEDS: Ascorbic Acid 250 MG TABLET PO ×2 (08:59→16:57)
[2021-07-30] MEDS: Folic Acid 1 MG TABLET PO (08:59)
[2021-07-30] MEDS: Gabapentin 300 MG CAPSULE PO ×2 (08:59→21:01)
[2021-07-30] MEDS: Naltrexone HCl 50 MG TABLET 25 MG PO (08:59)
[2021-07-30] MEDS: Multivitamin TABLET 1 TAB PO (08:59)
[2021-07-30] MEDS: LORazepam 1 MG TABLET PO (09:00)
[2021-07-30] MEDS: Thiamine HCL 100 MG TABLET 50 MG PO (09:00)
--- NOTE | 2021-07-30 09:24 | HO.PSYCHPN ---
Subjective Subjective Date of Service: 07/30/21 Reason For Visit: depression,AUD Interim History: pt reports feeling in good mood; she shared how she's been working on CBT exercise which she found helpful and even identified a time when she employed a helpful behavior which stopped the cycle of negative automatic thoughts. Pt says coming to visit so can meet w/ team; she's starting to feel like she'll be ready to go home soon. Sleeping well, no med side-effects; no SI said she's having some cravings but welcomes naltrexone/vivitrol which she says helped in past. Discussed AA of which she is ambivalent; also discussed partial day program which she'll consider. Mental Status Exam Mental Status Exam Narrative: Pt is alert and oriented; behavior is cooperative, calm;; dressed in casual clothes, overall well groomed with adequate hygiene; mood is described as good and affect congruent, brighter; eye contact appropriate; Speech is normal rate, volume and prosody and not pressured;? no psychomotor retardation present; thought process is organized and goal directed; Thought content is treatment, staying sober, dealing with relationships and on treatment; thought content remains pertinent to relevant topics and without any delusional content, paranoid ideations or grandiosity; patient denies any SI or HI. There is no evidence of perceptual disturbance.? Patients insight and judgment are fair. Diagnostics Vital Signs (24Hr): Vital Signs - 24 hr 07/29/21 16:18 07/30/21 06:00 Temperature 97.5 F 97.4 F Pulse Rate 76 72 Respiratory Rate 16 16 Blood Pressure 141/77 H 109/70 Pulse Oximetry 100 97 BMI result Body Mass Index 24.2 Labs Results: 07/25/21 08:20 07/25/21 08:20 Medications Medications Current Medications Acetaminophen (Acetaminophen 325 Mg Tablet) 975 mg PO TID PRN PRN Reason: Headache/Pain Mild Scale (1-3) Last Admin: 07/30/21 05:55 Dose: 975 mg Documented by: Al Hydroxide/Mg Hydroxide (Magnesium Hydrox/Alum Hydrox 30 Ml Oral.Susp) 30 ml PO Q6H PRN PRN Reason: Heartburn/Nausea Ascorbic Acid (Ascorbic Acid 250 Mg Tablet) 250 mg PO BIDWM [facility] Last Admin: 07/30/21 08:59 Dose: 250 mg Documented by: Docosanol (Docosanol 10 % Cream 2 Gm Tube) 1 appl TOPICAL 5XD [facility]; Protocol Last Admin: 07/30/21 05:42 Dose: 1 appl Documented by: Ferrous Sulfate (Ferrous Sulfate 324 Mg Tablet.) 324 mg PO BIDWM [facility] Last Admin: 07/30/21 08:59 Dose: 324 mg Documented by: Folic Acid (Folic Acid 1 Mg Tablet) 1 mg PO DAILY [facility] Last Admin: 07/30/21 08:59 Dose: 1 mg Documented by: Gabapentin (Gabapentin 300 Mg Capsule) 300 mg PO BID [facility] Stop: 08/01/21 23:50 Last Admin: 07/30/21 08:59 Dose: 300 mg Documented by: Gabapentin (Gabapentin 300 Mg Capsule) 300 mg PO DAILY [facility] Stop: 08/04/21 23:50 Hydroxyzine HCl (Hydroxyzine Hcl 25 Mg Tablet) 25 mg PO Q6H PRN PRN Reason: Anxiety Last Admin: 07/29/21 17:51 Dose: 25 mg Documented by: [place] Carbonate ([place] Carbonate Er 300 Mg Tablet.Er) 600 mg PO BEDTIME [facility] Last Admin: 07/29/21 20:20 Dose: 600 mg Documented by: Lorazepam (Lorazepam 1 Mg Tablet) 1 mg PO DAILY [facility]; Taper Stop: 07/31/21 14:59 Last Admin: 07/30/21 09:00 Dose: 1 mg Documented by: Lorazepam (Lorazepam 1 Mg Tablet) 1 mg PO Q2H PRN PRN Reason: for CIWA 6 to 10 Last Admin: 07/29/21 21:26 Dose: 1 mg Documented by: Magnesium Hydroxide (Milk Of Magnesia 30 Ml Oral.Susp) 30 ml PO DAILY PRN PRN Reason: Constipation Melatonin (Melatonin 3 Mg Tablet) 6 mg PO BEDTIME [facility] Last Admin: 07/29/21 20:20 Dose: 6 mg Documented by: Multivitamins/Vitamin C (Multivitamin Tablet) 1 tab PO DAILY [facility] Last Admin: 07/30/21 08:59 Dose: 1 tab Documented by: Naltrexone HCl (Naltrexone Hcl 50 Mg Tablet) 25 mg PO DAILY [facility] Last Admin: 07/30/21 08:59 Dose: 25 mg Documented by: Omeprazole (Omeprazole 40 Mg Capsule.) 40 mg PO DAILY@0630 [facility] Last Admin: 07/30/21 05:42 Dose: 40 mg Documented by: Ondansetron HCl (Ondansetron Odt 4 Mg Tab.Rapdis) 4 mg TRANSLINGU Q6H PRN PRN Reason: Nausea Last Admin: 07/27/21 12:06 Dose: 4 mg Documented by: Oxycodone HCl (Oxycodone Hcl Immed Release 5 Mg Tablet) 5 mg PO BID PRN PRN Reason: Pain, Moderate (Pain Scale 4-6 Last Admin: 07/29/21 17:51 Dose: 5 mg Documented by: Prazosin HCl (Prazosin Hcl 1 Mg Capsule) 1 mg PO BEDTIME [facility]; Protocol Last Admin: 07/29/21 20:20 Dose: 1 mg Documented by: Thiamine HCl (Thiamine Hcl 100 Mg Tablet) 50 mg PO DAILY [facility] Last Admin: 07/30/21 09:00 Dose: 50 mg Documented by: Trazodone HCl (Trazodone Hcl 50 Mg Tablet) 50 mg PO BEDTIME PRN PRN Reason: Insomnia Last Admin: 07/29/21 21:26 Dose: 50 mg Documented by: Allergies Allergies Allergy/AdvReac Type Severity Reaction Status Date / Time No Known Allergies Allergy Verified 06/30/21 20:59 Assessment & Plan Assessment & Plan (1) Bipolar 1 disorder with moderate dulce maria: Status: Acute Code(s): F31.12 - Bipolar disorder, current episode manic without psychotic features, moderate (2) Chronic post-traumatic stress disorder (PTSD): Status: Acute Code(s): F43.12 - Post-traumatic stress disorder, chronic (3) H/O gastric bypass: Status: Acute Code(s): Z98.84 - Bariatric surgery status (4) Iron deficiency anemia: Status: Acute Code(s): D50.9 - Iron deficiency anemia, unspecified Plan Patient is a 46-year-old female with history of PTSD, depression, alcohol dependence for the past 3 years, history of manic episodes, iron deficient anemia, chronic and current pancreatitis due to alcoholism and history of gastric bypass surgery. Patient has daily, bothersome PTSD symptoms from both childhood and adult trauma Patient meets criteria for bipolar type 1 disorder; will make it a provisional diagnosis since manic episodes started only 3 years ago when she started drinking heavily; however she has a history of depression and some biological loading for bipolar dx; also patient's description of the number and duration of symptoms more likely points to organic bipolar disorder rather than symptoms mimicked by PTSD and alcohol intoxication. -currently patient is detoxing from alcohol with scheduled Ativan and gabapentin and PRNs based on CIWA. Patient also has mild to moderate abdominal pain from pancreatitis, however this is resolving and she is able to eat and drink. Still, will wait for patient to detox further and for abdominal pain to further subside Before starting mood stabilizer. Patient has iron deficient anemia from poor nutrition which is being treated. Patient reports SI has resolved 3/ SI resolved; remains depressed but is focused on treatment. Patient still in alcohol withdrawal and continuing on Ativan taper, still getting some Ativan for breakthrough symptoms. Patient would like to start a trial of lithium for bipolar disorder; telegraphic typewriter repairer reviewed 07/29 tolerating meds; working on emotional lability; no SI 07/30 mood improved, utilizing coping skills to good effect; optimistic. PLAN CV? Q 15 minute checks continue [place] ER 600mg qhs -labs ordered Naltrexone 25mg (will order LfT's); reviewed risks/side-effects Gabapentin /ativan taper? DC CIWA; withdrawal complete prazosin 1 mg q.h.s. for frequent upsetting nightmares based on trauma Started iron 324 mg b.i.d. with meals plus vitamin-C for help with absorption given microcytic anemia with positive iron studies Labs reviewed from sending hospital: Negative urine ; lytes, BUN/creatinine within normal limits; alk-phos elevated but otherwise LFTs within normal limits; UA negative; COVID negative; negative occult stool. As mentioned patient has microcytic anemia, hemoglobin currently 8.4 but has remained stable; telegraphic typewriter repairer also reviewed abdominal ultrasound which did show some borderline gallbladder wall thickening and could not completely rule out cholecystitis, however patient has chronic pancreatitis which remains underlying diagnosis Regarding [place], Risks, side-effects and benefits reviewed with pt, including but not limited to damage to kidneys and thyroid; pt was educated to stay hydrated, to watch for symptoms of lithium toxicity (also discussed, including but not limited to nausea, tremor, confusion) and the need to stay away from OTC NSAIDs (specifics reviewed) aside from Tylenol, all to which pt communicated understanding. I spent minutes with the patient and/or on the patient floor today, greater than?50% of which was spent counseling/coordinating care. Patient educated on: medication risk/benefits, substance abuse and therapeutic strategies Informed Consent: understands Reason for contiued inpatient stay Substantial Risk for: stable for discharge
[2021-07-30] MEDS: hydrOXYzine HCL 25 MG TABLET PO (12:22)
[2021-07-30] MEDS: hydrOXYzine HCL 50 MG TABLET PO (16:56)
[2021-07-30 21:00] VITALS: BP 141/69; PULSE 92; TEMP 36.8
[2021-07-30] MEDS: Melatonin 3 MG TABLET 6 MG PO (21:00)
[2021-07-30] MEDS: Lithium Carbonate ER 300 MG TABLET.ER 600 MG PO (21:00)
[2021-07-30] MEDS: Prazosin HCL 1 MG CAPSULE PO (21:02)
--- NOTE | 2021-07-31 00:15 | PC.NURSE ---
Pt signed a 3-day notice of withdrawing her conditional voluntary admission; 3-day is up on 08/04/21. Provider is aware.
[2021-07-31] MEDS: hydrOXYzine HCL 50 MG TABLET PO (02:36)
[2021-07-31 06:00] VITALS: BP 110/67; PULSE 62; RESP 18; TEMP 36.3; O2SAT 96
[2021-07-31] MEDS: Omeprazole 40 MG CAPSULE.DR PO (06:13)
[2021-07-31] MEDS: docosanoL 10 % Cream 2 GM TUBE 1 APPL TOPICAL ×5 (06:18→20:02)
[2021-07-31] MEDS: Acetaminophen 325 MG TABLET 975 MG PO (06:18)
[2021-07-31 07:00] VITALS: BMI 27.3
[2021-07-31] MEDS: Ferrous Sulfate 324 MG TABLET.DR PO ×2 (08:03→16:37)
[2021-07-31] MEDS: Gabapentin 300 MG CAPSULE PO ×2 (08:03→20:01)
[2021-07-31] MEDS: Folic Acid 1 MG TABLET PO (08:03)
[2021-07-31] MEDS: Naltrexone HCl 50 MG TABLET 25 MG PO (08:03)
[2021-07-31] MEDS: Thiamine HCL 100 MG TABLET 50 MG PO (08:04)
[2021-07-31] MEDS: Ascorbic Acid 250 MG TABLET PO ×2 (08:04→16:37)
[2021-07-31] MEDS: Multivitamin TABLET 1 TAB PO (08:04)
--- NOTE | 2021-07-31 16:05 | P.PNPSI_ITS ---
Subjective Subjective Date of Service: 07/31/21 Reason For Visit: depression,AUD Interim History: Patient seen and discussed with team. Patient evaluated today and upon interview pt says she is doing really good, feels medication is working, Im not having any thoughts of harm, i'm not craving for anything. Says she gets a little stressed and depressed here and there but overall feels improvement on medication. Sleep is not so good, woke up at 2:30am, had difficulty falling back to sleep. Says she has sleep issues at baseline, i'm like a walking zombie, says by noon im sluggish. Denies benefit on Melatonin. Wants to try trazodone, as she thinks this helped her in the past. She is eating well. No questions or concerns.? In the milieu, patient is safe and appropriate in behavior. Denies SI/SIB/HI upon inquiry. Denies irritability or assaultive ideation. Says she feels safe. Medication Compliance: Yes Side effects from medications: No Attending Groups: Yes Review of Systems Acute medical concerns: No Medical Review of Systems: unchanged Mental Status Exam Mental Status Exam Narrative: Pt is alert and oriented; behavior is cooperative, calm;; dressed in casual clothes, overall well groomed with adequate hygiene; mood is described as better and affect congruent, brighter; eye contact appropriate; Speech is normal rate, volume and prosody and not pressured;? no psychomotor retardation present; thought process is organized and goal directed; Thought content is treatment, staying sober, dealing with relationships and on treatment; thought content remains pertinent to relevant topics and without any delusional content, paranoid ideations or grandiosity; patient denies any SI or HI. There is no evidence of perceptual disturbance.? Patients insight and judgment are fair. Diagnostics Vital Signs (24Hr): Vital Signs - 24 hr 07/30/21 21:00 07/31/21 06:00 Temperature 98.2 F 97.3 F Pulse Rate 92 62 Respiratory Rate 18 Blood Pressure 141/69 H 110/67 Pulse Oximetry 96 BMI result Body Mass Index 27.3 Labs Results: 07/25/21 08:20 07/25/21 08:20 Medications Medications Current Medications Acetaminophen (Acetaminophen 325 Mg Tablet) 975 mg PO TID PRN PRN Reason: Headache/Pain Mild Scale (1-3) Last Admin: 07/31/21 06:18 Dose: 975 mg Documented by: Al Hydroxide/Mg Hydroxide (Magnesium Hydrox/Alum Hydrox 30 Ml Oral.Susp) 30 ml PO Q6H PRN PRN Reason: Heartburn/Nausea Ascorbic Acid (Ascorbic Acid 250 Mg Tablet) 250 mg PO BIDWM [facility] Last Admin: 07/31/21 08:04 Dose: 250 mg Documented by: Docosanol (Docosanol 10 % Cream 2 Gm Tube) 1 appl TOPICAL 5XD [facility]; Protocol Last Admin: 07/31/21 13:20 Dose: 1 appl Documented by: Ferrous Sulfate (Ferrous Sulfate 324 Mg Tablet.) 324 mg PO BIDWM [facility] Last Admin: 07/31/21 08:03 Dose: 324 mg Documented by: Folic Acid (Folic Acid 1 Mg Tablet) 1 mg PO DAILY [facility] Last Admin: 07/31/21 08:03 Dose: 1 mg Documented by: Gabapentin (Gabapentin 300 Mg Capsule) 300 mg PO BID [facility] Stop: 08/01/21 23:50 Last Admin: 07/31/21 08:03 Dose: 300 mg Documented by: Gabapentin (Gabapentin 300 Mg Capsule) 300 mg PO DAILY [facility] Stop: 08/04/21 23:50 Hydroxyzine HCl (Hydroxyzine Hcl 50 Mg Tablet) 50 mg PO Q6H PRN PRN Reason: Anxiety Last Admin: 07/31/21 02:36 Dose: 50 mg Documented by: [place] Carbonate ([place] Carbonate Er 300 Mg Tablet.Er) 600 mg PO BEDTIME [facility] Last Admin: 07/30/21 21:00 Dose: 600 mg Documented by: Magnesium Hydroxide (Milk Of Magnesia 30 Ml Oral.Susp) 30 ml PO DAILY PRN PRN Reason: Constipation Melatonin (Melatonin 3 Mg Tablet) 6 mg PO BEDTIME [facility] Last Admin: 07/30/21 21:00 Dose: 6 mg Documented by: Multivitamins/Vitamin C (Multivitamin Tablet) 1 tab PO DAILY [facility] Last Admin: 07/31/21 08:04 Dose: 1 tab Documented by: Naltrexone HCl (Naltrexone Hcl 50 Mg Tablet) 25 mg PO DAILY [facility] Last Admin: 07/31/21 08:03 Dose: 25 mg Documented by: Omeprazole (Omeprazole 40 Mg Capsule.) 40 mg PO DAILY@0630 [facility] Last Admin: 07/31/21 06:13 Dose: 40 mg Documented by: Prazosin HCl (Prazosin Hcl 1 Mg Capsule) 1 mg PO BEDTIME [facility]; Protocol Last Admin: 07/30/21 21:02 Dose: 1 mg Documented by: Thiamine HCl (Thiamine Hcl 100 Mg Tablet) 50 mg PO DAILY [facility] Last Admin: 07/31/21 08:04 Dose: 50 mg Documented by: Trazodone HCl (Trazodone Hcl 50 Mg Tablet) 50 mg PO BEDTIME PRN PRN Reason: Insomnia Last Admin: 07/29/21 21:26 Dose: 50 mg Documented by: Allergies Allergies Allergy/AdvReac Type Severity Reaction Status Date / Time No Known Allergies Allergy Verified 06/30/21 20:59 Assessment & Plan Assessment & Plan (1) Bipolar 1 disorder with moderate dulce maria: Status: Acute Code(s): F31.12 - Bipolar disorder, current episode manic without psychotic features, moderate (2) Chronic post-traumatic stress disorder (PTSD): Status: Acute Code(s): F43.12 - Post-traumatic stress disorder, chronic (3) H/O gastric bypass: Status: Acute Code(s): Z98.84 - Bariatric surgery status (4) Iron deficiency anemia: Status: Acute Code(s): D50.9 - Iron deficiency anemia, unspecified Plan Patient is a 46-year-old female with history of PTSD, depression, alcohol depen dence for the past 3 years, history of manic episodes, iron deficient anemia, chronic and current pancreatitis due to alcoholism and history of gastric bypass surgery. Patient has daily, bothersome PTSD symptoms from both childhood and adult trauma Patient meets criteria for bipolar type 1 disorder; will make it a provisional diagnosis since manic episodes started only 3 years ago when she started drinking heavily; however she has a history of depression and some biological loading for bipolar dx; also patient's description of the number and duration of symptoms more likely points to organic bipolar disorder rather than symptoms mimicked by PTSD and alcohol intoxication. -currently patient is detoxing from alcohol with scheduled Ativan and gabapentin and PRNs based on CIWA. Patient also has mild to moderate abdominal pain from pancreatitis, however this is resolving and she is able to eat and drink. Still, will wait for patient to detox further and for abdominal pain to further subside Before starting mood stabilizer. Patient has iron deficient anemia from poor nutrition which is being treated. Patient reports SI has resolved 3/7 SI resolved; remains depressed but is focused on treatment. Patient still in alcohol withdrawal and continuing on Ativan taper, still getting some Ativan for breakthrough symptoms. Patient would like to start a trial of lithium for bipolar disorder; sheet writer reviewed 07/29 tolerating meds; working on emotional lability; no SI 07/30 mood improved, utilizing coping skills to good effect; optimistic. 07/31: Will trial trazodone 50 mg PRN for sleep aid PLAN CV? Q 15 minute checks continue [place] ER 600mg qhs -labs ordered Naltrexone 25mg (will order LfT's); reviewed risks/side-effects Gabapentin /ativan taper? DC CIWA; withdrawal complete prazosin 1 mg q.h.s. for frequent upsetting nightmares based on trauma Started iron 324 mg b.i.d. with meals plus vitamin-C for help with absorption given microcytic anemia with positive iron studies Labs reviewed from sending hospital: Negative urine ; lytes, BUN/creatinine within normal limits; alk- phos elevated but otherwise LFTs within normal limits; UA negative; COVID negative; negative occult stool. As mentioned patient has microcytic anemia, hemoglobin currently 8.4 but has remained stable; sheet writer also reviewed abdominal ultrasound which did show some borderline gallbladder wall thickening and could not completely rule out cholecystitis, however patient has chronic pancreatitis which remains underlying diagnosis Regarding [place], Risks, side-effects and benefits reviewed with pt, including but not limited to damage to kidneys and thyroid; pt was educated to stay hydrated, to watch for symptoms of lithium toxicity (also discussed, including but not limited to nausea, tremor, confusion) and the need to stay away from OTC NSAIDs (specifics reviewed) aside from Tylenol, all to which pt communicated understanding. I spent minutes with the patient and/or on the patient floor today, greater than?50% of which was spent counseling/coordinating care. Reason for contiued inpatient stay Substantial Risk for: rapid decompensation and med/psych decompensation
[2021-07-31 18:00] VITALS: BP 118/69; PULSE 82; RESP 16; TEMP 36.5; O2SAT 97
[2021-07-31] MEDS: Prazosin HCL 1 MG CAPSULE PO (20:00)
[2021-07-31] MEDS: Lithium Carbonate ER 300 MG TABLET.ER 600 MG PO (20:01)
[2021-07-31] MEDS: Melatonin 3 MG TABLET 6 MG PO (20:01)
[2021-08-01] MEDS: hydrOXYzine HCL 50 MG TABLET PO (00:56)
[2021-08-01] MEDS: Acetaminophen 325 MG TABLET 975 MG PO ×3 (00:56→16:34)
[2021-08-01] MEDS: Omeprazole 40 MG CAPSULE.DR PO (05:34)
[2021-08-01] MEDS: docosanoL 10 % Cream 2 GM TUBE 1 APPL TOPICAL ×5 (05:46→20:27)
[2021-08-01 06:00] VITALS: BP 135/85; PULSE 83; RESP 18; TEMP 36.5; O2SAT 100
[2021-08-01] MEDS: Ferrous Sulfate 324 MG TABLET.DR PO ×2 (08:43→16:33)
[2021-08-01] MEDS: Folic Acid 1 MG TABLET PO (08:43)
[2021-08-01] MEDS: Naltrexone HCl 50 MG TABLET 25 MG PO (08:43)
[2021-08-01] MEDS: Ascorbic Acid 250 MG TABLET PO ×2 (08:44→16:33)
[2021-08-01] MEDS: Gabapentin 300 MG CAPSULE PO ×2 (08:44→20:14)
[2021-08-01] MEDS: Thiamine HCL 100 MG TABLET 50 MG PO (08:44)
[2021-08-01] MEDS: Multivitamin TABLET 1 TAB PO (08:44)
--- NOTE | 2021-08-01 10:35 | P.PNPSI_ITS ---
Subjective Subjective Date of Service: 08/01/21 Reason For Visit: depression,AUD Interim History: Patient reports that she is doing well and remains in good mood, without any SI and her anxiety in good control. She shared that yesterday during a phone conversation with her mother, she for the 1st time stood up to her mother in a respectful and appropriate away but in a way that protected her boundaries and empowered her. Patient was very proud of herself and felt that the therapeutic tools she learned on the unit were instrumental in helping her achieve this. Patient had good insight in assessing her struggles with alcoholism and knows that she remains vulnerable to relapse; however she has plans in place to address this, willing to engage in therapy and is considering AA and has discussed these things with her supportive who has been sober for 5+ years. Patient feels that medications are working very well. She understands she may need an increase in lithium at some point and also that it may be a good idea to restart Prozac to help with PTSD type symptoms and feels comfortable addressing this with outpatient providers. Patient reports she is eating and sleeping well, she is optimistic about both staying sober and feeling emotionally stable. She talked about her chronic sadness regarding miscarriages and says she realizes that this is a part of her life that she will just have to come to terms with and she says she is learning to accept this. Patient has spoken with her former boss who continues to hold her position for her and patient is excited, considering returning back to work at some point soon. Patient expresses gratitude for help received on the unit. She feels ready to discharge home. Later in the day patient's op is been visited and met with telegraphic typewriter operator and patient. He is supportive and hopeful that patient can remain sober. Mental Status Exam Mental Status Exam Narrative: Pt is alert and oriented; behavior is cooperative, calm;; dressed in casual clothes, well groomed with good hygiene; mood is described as good and affect congruent, brighter; eye contact appropriate; Speech is normal rate, volume and prosody and not pressured;? no psychomotor retardation present; thought process is organized and goal directed; Thought content is treatment, staying sober, dealing with relationships and on continuing treatment; thought content remains pertinent to relevant topics and without any delusional content, paranoid ideations or grandiosity; patient denies any SI or HI. There is no evidence of perceptual disturbance.? Patients insight and judgment are fair. Diagnostics Vital Signs (24Hr): Vital Signs - 24 hr 07/31/21 18:00 08/01/21 06:00 Temperature 97.7 F 97.7 F Pulse Rate 82 83 Respiratory Rate 16 18 Blood Pressure 118/69 135/85 Pulse Oximetry 97 100 BMI result Body Mass Index 27.3 Labs Results: 08/02/21 07:13 08/02/21 07:13 Medications Medications Current Medications Acetaminophen (Acetaminophen 325 Mg Tablet) 975 mg PO TID PRN PRN Reason: Headache/Pain Mild Scale (1-3) Last Admin: 08/01/21 00:56 Dose: 975 mg Documented by: Al Hydroxide/Mg Hydroxide (Magnesium Hydrox/Alum Hydrox 30 Ml Oral.Susp) 30 ml PO Q6H PRN PRN Reason: Heartburn/Nausea Ascorbic Acid (Ascorbic Acid 250 Mg Tablet) 250 mg PO BIDWM [facility] Last Admin: 08/01/21 08:44 Dose: 250 mg Documented by: Docosanol (Docosanol 10 % Cream 2 Gm Tube) 1 appl TOPICAL 5XD [facility]; Protocol Last Admin: 08/01/21 09:20 Dose: 1 appl Documented by: Ferrous Sulfate (Ferrous Sulfate 324 Mg Tablet.) 324 mg PO BIDWM [facility] Last Admin: 08/01/21 08:43 Dose: 324 mg Documented by: Folic Acid (Folic Acid 1 Mg Tablet) 1 mg PO DAILY [facility] Last Admin: 08/01/21 08:43 Dose: 1 mg Documented by: Gabapentin (Gabapentin 300 Mg Capsule) 300 mg PO BID [facility] Stop: 08/01/21 23:50 Last Admin: 08/01/21 08:44 Dose: 300 mg Documented by: Gabapentin (Gabapentin 300 Mg Capsule) 300 mg PO DAILY [facility] Stop: 08/04/21 23:50 Hydroxyzine HCl (Hydroxyzine Hcl 50 Mg Tablet) 50 mg PO Q6H PRN PRN Reason: Anxiety Last Admin: 08/01/21 00:56 Dose: 50 mg Documented by: C[place] Carbonate ([place] Carbonate Er 300 Mg Tablet.Er) 600 mg PO BEDTIME [facility] Last Admin: 07/31/21 20:01 Dose: 600 mg Documented by: Magnesium Hydroxide (Milk Of Magnesia 30 Ml Oral.Susp) 30 ml PO DAILY PRN PRN Reason: Constipation Melatonin (Melatonin 3 Mg Tablet) 6 mg PO BEDTIME [facility] Last Admin: 07/31/21 20:01 Dose: 6 mg Documented by: Multivitamins/Vitamin C (Multivitamin Tablet) 1 tab PO DAILY [facility] Last Admin: 08/01/21 08:44 Dose: 1 tab Documented by: Naltrexone HCl (Naltrexone Hcl 50 Mg Tablet) 25 mg PO DAILY [facility] Last Admin: 08/01/21 08:43 Dose: 25 mg Documented by: Omeprazole (Omeprazole 40 Mg Capsule.Dr) 40 mg PO DAILY@0630 [facility] Last Admin: 08/01/21 05:34 Dose: 40 mg Documented by: Prazosin HCl (Prazosin Hcl 1 Mg Capsule) 1 mg PO BEDTIME [facility]; Protocol Last Admin: 07/31/21 20:00 Dose: 1 mg Documented by: Thiamine HCl (Thiamine Hcl 100 Mg Tablet) 50 mg PO DAILY [facility] Last Admin: 08/01/21 08:44 Dose: 50 mg Documented by: Trazodone HCl (Trazodone Hcl 50 Mg Tablet) 50 mg PO BEDTIME PRN PRN Reason: Insomnia Last Admin: 07/29/21 21:26 Dose: 50 mg Documented by: Allergies Allergies Allergy/AdvReac Type Severity Reaction Status Date / Time No Known Allergies Allergy Verified 06/30/21 20:59 Assessment & Plan Assessment & Plan (1) Bipolar 1 disorder with moderate dulce maria: Status: Acute Code(s): F31.12 - Bipolar disorder, current episode manic without psychotic features, moderate (2) Chronic post-traumatic stress disorder (PTSD): Status: Acute Code(s): F43.12 - Post-traumatic stress disorder, chronic (3) H/O gastric bypass: Status: Acute Code(s): Z98.84 - Bariatric surgery status (4) Iron deficiency anemia: Status: Acute Code(s): D50.9 - Iron deficiency anemia, unspecified (5) Chronic pancreatitis: Status: Acute Code(s): K86.1 - Other chronic pancreatitis Assessment and Plan: acute exacerbation, now resolved Plan Patient is a 46-year-old female with history of PTSD, depression, alcohol dependence for the past 3 years, history of manic episodes, iron deficient anemia, chronic and current pancreatitis due to alcoholism and history of gastric bypass surgery. Patient has daily, bothersome PTSD symptoms from both childhood and adult trauma Patient meets criteria for bipolar type 1 disorder; will make it a provisional diagnosis since manic episodes started only 3 years ago when she started drinking heavily; however she has a history of depression and some biological loading for bipolar dx; also patient's description of the number and duration of symptoms more likely points to organic bipolar disorder rather than symptoms mimicked by PTSD and alcohol intoxication. -currently patient is detoxing from alcohol with scheduled Ativan and gabapentin and PRNs based on CIWA. Patient also has mild to moderate abdominal pain from pancreatitis, however this is resolving and she is able to eat and drink. Still, will wait for patient to detox further and for abdominal pain to further subside Before starting mood stabilizer. Patient has iron deficient anemia from poor nutrition which is being treated. Patient reports SI has resolved 07/28 SI resolved; remains depressed but is focused on treatment. Patient still in alcohol withdrawal and continuing on Ativan taper, still getting some Ativan for breakthrough symptoms. Patient would like to start a trial of lithium for bipolar disorder; telegraphic typewriter operator reviewed 07/29 tolerating meds; working on emotional lability; no SI 07/30 mood improved, utilizing coping skills to good effect; optimistic. 08/01 Patient reports that she is doing well and remains in good mood, without any SI and her anxiety in good control. She shared that yesterday during a phone conversation with her mother, she for the 1st time stood up to her mother in a respectful and appropriate away but in a way that protected her boundaries and empowered her. Patient was very proud of herself and felt that the therapeutic tools she learned on the unit were instrumental in helping her achieve this. Patient had good insight in assessing her struggles with alcoholism and knows that she remains vulnerable to relapse; however she has plans in place to address this, willing to engage in therapy and is considering AA and has discussed these things with her supportive who has been sober for 5+ years. Patient feels that medications are working very well. She understands she may need an increase in lithium at some point and also that it may be a good idea to restart Prozac to help with PTSD type symptoms and feels comfortable addressing this with outpatient providers. Patient reports she is eating and sleeping well, she is optimistic about both staying sober and feeling emotionally stable. She talked about her chronic sadness regarding miscarriages and says she realizes that this is a part of her life that she will just have to come to terms with and she says she is learning to accept this. Patient has spoken with her former boss who continues to hold her position for her and patient is excited, considering returning back to work at some point soon. Patient expresses gratitude for help received on the unit. She feels ready to discharge home. Patient has a 3 day notice coming due. Patient has worked hard during her admission, engaged in therapy and utilizing coping skills to good effect. She has remained appropriate with peers and staff and consistently demonstrated good behavioral and impulse control on the unit. She is not in imminent risk for harm to self or others and her request for discharge honored. PLAN CV? Q 15 minute checks continue C[place] ER 600mg qhs -labs ordered Naltrexone 25mg (will order LfT's); reviewed risks/side-effects Gabapentin /ativan taper? DC CIWA; withdrawal complete prazosin 1 mg q.h.s. for frequent upsetting nightmares based on trauma Started iron 324 mg b.i.d. with meals plus vitamin-C for help with absorption given microcytic anemia with positive iron studies Labs reviewed from sending hospital: Negative urine ; lytes, BUN/creatinine within normal limits; alk- phos elevated but otherwise LFTs within normal limits; UA negative; COVID negative; negative occult stool. As mentioned patient has microcytic anemia, he moglobin currently 8.4 but has remained stable; telegraphic typewriter operator also reviewed abdominal ultrasound which did show some borderline gallbladder wall thickening and could not completely rule out cholecystitis, however patient has chronic pancreatitis which remains underlying diagnosis Regarding [place], Risks, side-effects and benefits reviewed with pt, including but not limited to damage to kidneys and thyroid; pt was educated to stay hydrated, to watch for symptoms of lithium toxicity (also discussed, including but not limited to nausea, tremor, confusion) and the need to stay away from OTC NSAIDs (specifics reviewed) aside from Tylenol, all to which pt communicated understanding. I spent minutes with the patient and/or on the patient floor today, greater than?50% of which was spent counseling/coordinating care. Patient educated on: diagnosis, medication risk/benefits, substance abuse and therapeutic strategies Informed Consent: understands Reason for contiued inpatient stay Substantial Risk for: stable for discharge
[2021-08-01 18:00] VITALS: BP 119/79; PULSE 68; RESP 16; TEMP 36.6; O2SAT 92
[2021-08-01] MEDS: Melatonin 3 MG TABLET 6 MG PO (20:14)
[2021-08-01] MEDS: Lithium Carbonate ER 300 MG TABLET.ER 600 MG PO (20:14)
[2021-08-01] MEDS: Prazosin HCL 1 MG CAPSULE PO (20:26)
[2021-08-02] MEDS: Acetaminophen 325 MG TABLET 975 MG PO (03:41)
[2021-08-02 06:00] VITALS: BP 136/87; PULSE 80; RESP 16; TEMP 36.3; O2SAT 99
[2021-08-02 07:31] LABS: MANUAL DIFF FLAG NO
[2021-08-02 07:34] LABS: Basophils Percent Auto 0.5 % (0-2); Eosinophils Absolute Auto 0.1 X10*3/uL (0.0-0.4); Eosinophils Percent Auto 2.3 % (0-4); Hematocrit 29.8 % (37.0-47.0); Hemoglobin 8.9 g/dl (12.0-16.0); Imm Gran Abs Auto 0.02 X10*3/uL (0.00-0.03); Imm Gran Pct Auto 0.4 % (0.0-0.4); Lymphocytes Absolute Auto 1.4 X10*3/uL (1.2-4.9); Lymphocytes Percent Auto 25.2 % (20-40); Mean Corpuscular HGB Conc 29.9 g/dl (31.0-35.0); Mean Corpuscular Hemoglobin 21.5 pg (27.0-33.0); Mean Corpuscular Volume 72.2 fL (80.0-98.0); Mean Platelet Volume 10.6 fL (9.4-12.3); Monocytes Absolute Auto 0.6 X10*3/uL (0.1-1.2); Monocytes Percent Auto 10.3 % (2-11); Neutrophils Absolute Auto 3.4 x10*3/uL (2.0-8.3); Neutrophils Percent Auto 61.3 % (45-73); Platelet Count 191 X10*3/uL (160-400); Red Blood Count 4.13 X10*6/uL (4.20-5.50); Red Cell Distribution Width 18.8 % (11.0-16.0); White Blood Count 5.6 X10*3/uL (4.8-10.8)
[2021-08-02 07:43] LABS: Lithium 0.45 mmol/L (0.60-1.20)
[2021-08-02 08:05] LABS: Alanine Aminotransferase 15 U/L (0-31); Albumin Level 3.6 g/dL (3.5-5.0); Alkaline Phosphatase 91 U/L (39-117); Anion Gap 10 (12-20); Aspartate Amino Transferase 32 U/L (5-31); Bilirubin Direct 0.2 mg/dL (0.0-0.5); Bilirubin Total 0.4 mg/dL (0.0-1.0); Blood Urea Nitrogen 9 mg/dL (9-16); Carbon Dioxide 27 mmol/L (22-29); Chloride 104 mmol/L (96-108); Creatinine Clr Calc Pharmacy 108.3; Estimated Glomerular Filt Rate > 60; Sodium 137 mmol/L (135-145); Total Protein 7.2 g/dL (6.5-8.0)
[2021-08-02 08:25] LABS: TSH reflex Free T4 1.93 uIU/mL (0.32-4.0)
[2021-08-02] MEDS: Multivitamin TABLET 1 TAB PO (08:27)
[2021-08-02] MEDS: Folic Acid 1 MG TABLET PO (08:27)
[2021-08-02] MEDS: Omeprazole 40 MG CAPSULE.DR PO (08:30)
[2021-08-02] MEDS: Thiamine HCL 100 MG TABLET 50 MG PO (08:30)
[2021-08-02] MEDS: Gabapentin 300 MG CAPSULE PO (08:30)
[2021-08-02] MEDS: Naltrexone HCl 50 MG TABLET 25 MG PO (08:30)
[2021-08-02] MEDS: Ascorbic Acid 250 MG TABLET PO (08:31)
[2021-08-02] MEDS: Ferrous Sulfate 324 MG TABLET.DR PO (08:31)
[2021-08-02] MEDS: docosanoL 10 % Cream 2 GM TUBE 1 APPL TOPICAL ×2 (08:50→11:09)
--- NOTE | 2021-08-02 10:05 | PM.PSYDC ---
DS: Providers Provider Date of Service: 08/02/21 Date of admission: 07/24/21 22:24 Date of discharge: 08/02/21 Primary care physician: Brooke Hilton MD Attending physician on admission: Rubio Hurtado Consults: 07/24/21 22:32 Consult to Hospitalist Routine Consulting Provider: Hospitalist Reason For Exam: new admit from [facility] Attending physician on discharge: Rubio Hurtado DS: Diagnosis Discharge Diagnosis (1) Bipolar 1 disorder with moderate dulce maria: Status: Acute (2) Chronic post-traumatic stress disorder (PTSD): Status: Acute (3) H/O gastric bypass: Status: Acute (4) Iron deficiency anemia: Status: Acute (5) Chronic pancreatitis: Status: Acute DS: Medications Discharge Medications Home Medications: Previous Rx's Medication Instructions Recorded ascorbic acid (vitamin C) 250 mg 250 mg PO BIDWM 30 Days #60 tab 08/02/21 tablet docosanol 10 % topical cream 1 appl TOPICAL 5XD PRN 30 Days #2 g 08/02/21 (Abreva) ferrous sulfate 324 mg (65 mg 324 mg PO BIDWM 30 Days #60 tab 08/02/21 iron) tablet,delayed release folic acid 1 mg tablet 1 mg PO DAILY 30 Days #30 tab 08/02/21 hydroxyzine HCl 50 mg tablet 50 mg PO BID PRN 30 Days #60 tab 08/02/21 lithium carbonate 300 mg 600 mg PO BEDTIME 30 Days #60 tab 08/02/21 tablet,extended release melatonin 5 mg tablet 5 mg PO BEDTIME PRN 30 Days #30 tab 08/02/21 naltrexone 50 mg tablet 25 mg PO DAILY 30 Days #15 tab 08/02/21 pantoprazole 40 mg tablet,delayed 40 mg PO DAILY 30 Days #30 tab 08/02/21 release prazosin 1 mg capsule 1 mg PO BEDTIME 30 Days #30 cap 08/02/21 thiamine HCl (vitamin B1) 100 mg 100 mg PO DAILY 30 Days #30 tab 08/02/21 tablet trazodone 50 mg tablet 50 mg PO BEDTIME PRN 30 Days #30 08/02/21 tab Mental Status Exam Mental Status Exam Narrative: Pt is alert and oriented; behavior is cooperative, calm;; dressed in casual clothes, well groomed with good hygiene; mood is described as good and affect congruent, brighter, calm; eye contact appropriate; Speech is normal rate, volume and prosody and not pressured;? no psychomotor retardation present; thought process is organized and goal directed; Thought content is treatment, staying sober, dealing with relationships and on continuing treatment; thought content remains pertinent to relevant topics and without any delusional content, paranoid ideations or grandiosity; patient denies any SI or HI. There is no evidence of perceptual disturbance.? Patients insight and judgment are fair. Data Data Completed and Pending Completed studies during hospitalization [Text1]: 08/02/21 08/02/21 08/02/21 07:13 07:13 07:13 WBC 5.6 RBC 4.13 L Hgb 8.9 L Hct 29.8 L MCV 72.2 L MCH 21.5 L MCHC 29.9 L RDW 18.8 H Plt Count 191 D MPV 10.6 Immature Gran % (Auto) 0.4 Neut % (Auto) 61.3 Lymph % (Auto) 25.2 [place] % (Auto) 10.3 Eos % (Auto) 2.3 Baso % (Auto) 0.5 Lymph # (Auto) 1.4 [place] # (Auto) 0.6 Eos # (Auto) 0.1 Baso # (Auto) 0.0 Abs Immat Gran (auto) 0.02 Absolute Neuts (auto) 3.4 Absolute Nucleated RBC 0.000 Nucleated RBC % (auto) 0.0 Sodium 137 Potassium 4.0 Chloride 104 Carbon Dioxide 27 Anion Gap 10 L BUN 9 Creatinine 0.68 Estim Creat Clear Calc 108.3 Estimated GFR > 60 Total Bilirubin 0.4 Direct Bilirubin 0.2 AST 32 H ALT 15 Alkaline Phosphatase 91 D Total Protein 7.2 Albumin 3.6 TSH 1.93 [place] 08/02/21 07:13 WBC RBC Hgb Hct MCV MCH MCHC RDW Plt Count MPV Immature Gran % (Auto) Neut % (Auto) Lymph % (Auto) [place] % (Auto) Eos % (Auto) Baso % (Auto) Lymph # (Auto) [place] # (Auto) Eos # (Auto) Baso # (Auto) Abs Immat Gran (auto) Absolute Neuts (auto) Absolute Nucleated RBC Nucleated RBC % (auto) Sodium Potassium Chloride Carbon Dioxide Anion Gap BUN Creatinine Estim Creat Clear Calc Estimated GFR Total Bilirubin Direct Bilirubin AST ALT Alkaline Phosphatase Total Protein Albumin TSH [place] 0.45 L DS: Summary Hospital Course Hospital Course: Patient is a 46-year-old female with history of PTSD, depression, alcohol dependence for the past 3 years, history of manic episodes, iron deficient anemia, chronic and current pancreatitis due to alcoholism and history of gastric bypass surgery. Patient has daily, bothersome PTSD symptoms from both childhood and adult trauma Patient meets criteria for bipolar type 1 disorder; will make it a provisional diagnosis since manic episodes started only 3 years ago when she started drinking heavily; however she has a history of depression and some biological loading for bipolar dx; also patient's description of the number and duration of symptoms more likely points to organic bipolar disorder rather than symptoms mimicked by PTSD and alcohol intoxication. -currently patient is detoxing from alcohol with scheduled Ativan and gabapentin and PRNs based on CIWA.? Patient also has mild to moderate abdominal pain from pancreatitis, however this is resolving and she is able to eat and drink.? Still, will wait for patient to detox further and for abdominal pain to further subside Before starting mood stabilizer.? Patient has iron deficient anemia from poor nutrition which is being treated.? Patient reports SI has resolved -patient who successfully detoxed from alcohol and pancreatitis resolved. Her mood significantly improved and SI remained fully resolved. Patient engaged in therapy and effectively utilized coping skills. She felt optimistic about staying stable and sober and was future oriented, with plans to return home and to return to work. Patient remained comforted by her supportive and also felt a renewed ability to stand up for herself and other relationships. Patient was tolerating her medications well and felt ready to discharge home, placing a 3 day notice. The day prior to discharge, Patient reports that she is doing well and remains in good mood, without any SI and her anxiety in good control.? She shared that yesterday during a phone conversation with her mother, she for the 1st time stood up to her mother in a respectful and appropriate away but in a way that protected her boundaries and empowered her.? Patient was very proud of herself and felt that the therapeutic tools she learned on the unit were instrumental in helping her achieve this.? Patient had good insight in assessing her struggles with alcoholism and knows that she remains vulnerable to relapse; however she has plans in place to address this, willing to engage in therapy and is considering AA and has discussed these things with her supportive who has been sober for 5+ years(pt's came in on discussed case and also felt she was ready to return home).? Patient feels that medications are working very well.? She understands she may need an increase in lithium at some point and also that it may be a good idea to restart Prozac to help with PTSD type symptoms and feels comfortable addressing this with outpatient providers.? Patient reports she is eating and sleeping well, she is optimistic about both staying sober and feeling emotionally stable.? She talked about her chronic sadness regarding miscarriages and says she realizes that this is a part of her life that she will just have to come to terms with and she says she is learning to accept this.? Patient has spoken with her former boss who continues to hold her position for her and patient is excited, considering returning back to work at some point soon.? Patient expresses gratitude for help received on the unit.? She feels ready to discharge home.? Patient has a 3 day notice coming due.? Patient has worked hard during her admission, engaged in therapy and utilizing coping skills to good effect.? She has remained appropriate with peers and staff and consistently demonstrated good behavioral and impulse control on the unit. Day of discharge patient remains stable and in good mood. Ship Cleaner and patient again discussed risks/side effects of medication regimen and discussed more nuances of bipolar disorder which patient understood; adjusto writer operator also reviewed patient's lab work. She agrees to follow-up with outpatient providers. Patient?is not in imminent risk for harm to self or others and her request for discharge honored. Regarding [place], Risks, side-effects and benefits reviewed with pt, including but not limited to damage to kidneys and thyroid; pt was educated to stay hydrated, to watch for symptoms of lithium toxicity (also discussed, including but not limited to nausea, tremor, confusion and that it is a terotagen) and the need to stay away from OTC NSAIDs (specifics reviewed) aside from Tylenol, all to which pt communicated understanding. Time spent discussing smoking cessation with patient: 3 to 10 minutes Status at Discharge Functional status at discharge: independent ambulation Overall status at discharge: patient is back to baseline Time Spent with Patient Time attestation: Total time spent providing and/or coordinating discharge services: Time spent: Greater than 30 minutes Discharge Plan Discharge Patient Disposition: Home, Self-Care Discharge Diagnosis: bipolar disorder type I, recurrent, moderate [facility]errals: [facility] [Other] - 08/04/21 10:00 am ([facility] with [facility] for Jolantaitrol ) Raul Rios [Other] - 08/04/21 4:00 pm (Initial diagnostic evaluation for Therapy Appointment by tele-health. Please check your email for link to appointment.) Abbie Severino [Other] - 09/04/21 1:00 pm (Initial Psychiatric Evaluation with medication provider. Appointment by tele-health. Please check your email for link to appointment.) Abbie Mere [Other] - 10/02/21 12:00 pm (Medication Management Appointment with Psychiatric Medication Provider Appointment by tele-health. Please check your email for link to appointment.) Maddison Coburn MD [Physician] - 1 Week ( AWARE OF DISCHAREGE, WILL CALL US BACK OR CALL PT. WITH FOLLOW-UP APPOINTMENT.) Discharge Medications: New ferrous sulfate 324 mg (65 mg iron) Tablet,Delayed Release (Dr/Ec) 324 mg PO BIDWM 30 Days Qty: 60 0RF prazosin 1 mg Capsule 1 mg PO BEDTIME 30 Days Qty: 30 0RF Protocol: Hold for SBP< HOLD for SBP < : 90 hydroxyzine HCl 50 mg Tablet 50 mg PO BID PRN (Reason: Anxiety) 30 Days Qty: 60 0RF lithium carbonate 300 mg Tablet Extended Release 600 mg PO BEDTIME 30 Days Qty: 60 0RF naltrexone 50 mg Tablet 25 mg PO DAILY 30 Days Qty: 15 0RF trazodone 50 mg Tablet 50 mg PO BEDTIME PRN (Reason: Insomnia) 30 Days Qty: 30 0RF docosanol [Abreva] 10 % Cream 1 appl topical 5XD PRN (Reason: fever blister) 30 Days Qty: 2 0RF Protocol: Apply to: Apply to: lower lip ascorbic acid (vitamin C) 250 mg Tablet 250 mg PO BIDWM 30 Days Qty: 60 0RF Continued thiamine HCl (vitamin B1) 100 mg Tablet 100 mg PO DAILY 30 Days Qty: 30 0RF pantoprazole 40 mg Tablet,Delayed Release (Dr/Ec) 40 mg PO DAILY 30 Days Qty: 30 0RF folic acid 1 mg tablet 1 mg PO DAILY 30 Days Qty: 30 0RF melatonin 5 mg Tablet 5 mg PO BEDTIME PRN (Reason: Sleep) 30 Days Qty: 30 0RF Discontinued fluoxetine 20 mg capsule 20 mg PO DAILY 0RF No Action Vivitrol 380 mg suspension,extended rel recon 380 mg IM Q4W 30 Days Qty: 1 5RF Discharge Orders: Discharge Order (Routine); Ordered 08/02/21 Ordered By: Rubio Hurtado Diet: regular diet Activity on Discharge: As tolerated Stand Alone Forms: Patient Portal Discharge page, Community Support Care Plan Goals: Maintain mood and safe behaviors Take medications as prescribed Continue to pursue sobriety Practice coping skills Continue with outpatient providers and reach out to them as needed Health Concerns: Mood stability and behaviors Sobriety Iron deficient anemia hx of Gastric Bypass surgery Chronic Pancreatitis Plan of Treatment: Follow up with your PCP, psychiatric provider and other outpatient providers regarding above concerns Take medications as prescribed Assessment: Risk assessment at time of discharge:? Patient was interviewed prior to discharge and found to be fully oriented and without any SI or HI. Patient has insight and demonstrates good judgment in terms of wanting to pursue treatment. Patient is not in imminent risk of harm to self or others and has a safety plan that includes presenting to the closest ER or calling 911 if feeling unsafe.? Patient has been observed closely by nursing and unit staff throughout admission; patient has not engaged in any behaviors that suggest dangerousness to self or others and has demonstrated appropriate behaviors and impulse control Discharge Date/Time: 08/02/21 13:59
[2021-08-02] MEDS: hydrOXYzine HCL 50 MG TABLET PO (11:46)
== END 2021-08-02 13:59 | disposition home or self-care (01) | DRG 753 ==
PROVIDERS: Registered Nurse; Admitting Provider Psychiatry & Neurology Psychiatry; PCP Pediatrics; Visit Provider Psychiatry & Neurology Psychiatry
DX: F31.12 Bipolar disorder, current episode manic without psychotic features, moderate (principal); R45.851 Suicidal ideations; F10.239 Alcohol dependence with withdrawal, unspecified; K86.1 Other chronic pancreatitis; F43.12 Post-traumatic stress disorder, chronic; Z98.84 Bariatric surgery status; Z79.899 Other long term (current) drug therapy
CPT/HCPCS: 36415; 80051; 80053; 80061; 80076; 80178; 81025; 82150; 82565; 82607; 82746; 83036; 83540; 83690; 83735; 84439; 84443; 84520; 85025; 87389

== ENCOUNTER → 2021-08-04 10:12 | Outpatient (BNVA) | payer MEDICAID, SELFPAY | PROVIDERS: Visit Provider Internal Medicine | DX: F10.10 Alcohol abuse, uncomplicated (principal); Z51.81 Encounter for therapeutic drug level monitoring; Z79.899 Other long term (current) drug therapy; Z72.89 Other problems related to lifestyle | CPT/HCPCS: 80305; 99202 ==

== ENCOUNTER 2021-08-23 17:21 | Emergency (ER) | payer MEDICAID, SELFPAY ==
[2021-08-23 17:30] VITALS: BP 131/85; PULSE 89; RESP 14; TEMP 36.3; O2SAT 100; BMI 27.7
[2021-08-23 17:38] VITALS: PULSE 86
[2021-08-23] MEDS: 0.9 % Sodium Chloride 1,000 ML 999 ML IV (18:00)
[2021-08-23 18:19] LABS: MANUAL DIFF FLAG NO
[2021-08-23 18:21] LABS: Basophils Percent Auto 0.6 % (0-2); Eosinophils Absolute Auto 0.2 X10*3/uL (0.0-0.4); Eosinophils Percent Auto 2.5 % (0-4); Hematocrit 27.8 % (37.0-47.0); Hemoglobin 8.4 g/dl (12.0-16.0); Imm Gran Abs Auto 0.03 X10*3/uL (0.00-0.03); Imm Gran Pct Auto 0.5 % (0.0-0.4); Lymphocytes Absolute Auto 2.1 X10*3/uL (1.2-4.9); Lymphocytes Percent Auto 32.9 % (20-40); Mean Corpuscular HGB Conc 30.2 g/dl (31.0-35.0); Mean Corpuscular Hemoglobin 21.1 pg (27.0-33.0); Mean Corpuscular Volume 69.8 fL (80.0-98.0); Monocytes Absolute Auto 0.3 X10*3/uL (0.1-1.2); Monocytes Percent Auto 5.1 % (2-11); Neutrophils Absolute Auto 3.8 x10*3/uL (2.0-8.3); Neutrophils Percent Auto 58.4 % (45-73); Platelet Count 183 X10*3/uL (160-400); Red Blood Count 3.98 X10*6/uL (4.20-5.50); Red Cell Distribution Width 18.3 % (11.0-16.0); White Blood Count 6.5 X10*3/uL (4.8-10.8)
[2021-08-23 18:37] LABS: Ethanol 287 mg/dL
[2021-08-23 18:46] LABS: Alanine Aminotransferase 20 U/L (0-31); Albumin Level 3.7 g/dL (3.5-5.0); Alkaline Phosphatase 110 U/L (39-117); Anion Gap 11 (12-20); Aspartate Amino Transferase 31 U/L (5-31); Bilirubin Total 0.2 mg/dL (0.0-1.0); Blood Urea Nitrogen 9 mg/dL (9-16); Calcium 8.4 mg/dL (8.4-10.2); Carbon Dioxide 26 mmol/L (22-29); Chloride 108 mmol/L (96-108); Creatinine Clr Calc Pharmacy 97.5; Estimated Glomerular Filt Rate > 60; Glucose Random 109 mg/dL (60-115); Potassium 4.1 mmol/L (3.3-5.1); Sodium 141 mmol/L (135-145); Total Protein 7.2 g/dL (6.5-8.0)
[2021-08-23 18:47] LABS: UPreg QC Valid YES; Urine Pregnancy NEGATIVE (NEGATIVE)
[2021-08-23] MEDS: Haloperidol Lactate 5 MG/ML VIAL IVPUSH (18:57)
[2021-08-23 18:58] LABS: Acetaminophen LAB < 1 mcg/mL (<30); Salicylate < 5.0 mg/dL (15-30)
[2021-08-23 19:04] LABS: Amphetamine Screen Urine Not Detected (Not Detect); Barbiturates, Urine Not Detected (Not Detect); Benzodiazepines Screen Urine Not Detected (Not Detect); Cannabinoid Screen Urine POSITIVE (Not Detect); Cocaine Screen Urine Not Detected (Not Detect); Fentanyl, urine Not Detected (Not Detect); Opiate Screen Urine Not Detected (Not Detect); Phencyclidine Screen Urine Not Detected (Not Detect)
--- NOTE | 2021-08-23 19:22 | ED.ALCOHOL ---
HPI - Alcohol General Chief Complaint: ETOH/Substance Use <Baljit Marks MD - Last Filed: 08/24/21 02:19> Stated Complaint: etoh and heroin use <Baljit Marks MD - Last Filed: 08/24/21 02:19> Time Seen by Provider: 08/23/21 17:48 <Baljit Marks MD - Last Filed: 08/24/21 02:19> Source: patient <Baljit Marks MD - Last Filed: 08/24/21 02:19> Mode of arrival: EMS <Baljit Marks MD - Last Filed: 08/24/21 02:19> Limitations: altered mental status (Alcohol intoxication) <Baljit Marks MD - Last Filed: 08/24/21 02:19> History of Present Illness HPI narrative: 46-year-old female who is brought to the emergency department by ambulance for evaluation of alcohol intoxication and suicidal ideation. The patient was not able to answer my questions secondary to her intoxication but I obtained information from the emergency department nurse. Apparently the patient has been binge drinking over the past 3 days. The patient is drinking at least 5 shots of vodka in 2-3 beers per day. Apparently she made suicidal statements to her and told her that she was going to hang herself. The was concerned and called an ambulance and the patient was brought to the emergency department. Here in the emergency department the patient appears to be intoxicated. She also has episodes where she starts crying. Patient was recently hospitalized on our psychiatric service from 07/25/2021 until 08/02/2021 for bipolar 1 disorder with moderate dulce maria and alcohol withdrawal. <Baljit Marks MD - Last Filed: 08/24/21 02:19> Related Data Home Medications: Previous Rx's Medication Instructions Recorded ascorbic acid (vitamin C) 250 mg 250 mg PO BIDWM 30 Days #60 tab 08/02/21 tablet docosanol 10 % topical cream 1 appl TOPICAL 5XD PRN 30 Days #2 g 08/02/21 (Abreva) ferrous sulfate 324 mg (65 mg 324 mg PO BIDWM 30 Days #60 tab 08/02/21 iron) tablet,delayed release folic acid 1 mg tablet 1 mg PO DAILY 30 Days #30 tab 03/12/22 hydroxyzine HCl 50 mg tablet 50 mg PO BID PRN 30 Days #60 tab 08/02/21 lithium carbonate 300 mg 600 mg PO BEDTIME 30 Days #60 tab 08/02/21 tablet,extended release melatonin 5 mg tablet 5 mg PO BEDTIME PRN 30 Days #30 tab 08/02/21 naltrexone 50 mg tablet 25 mg PO DAILY 30 Days #15 tab 08/02/21 pantoprazole 40 mg tablet,delayed 40 mg PO DAILY 30 Days #30 tab 08/02/21 release prazosin 1 mg capsule 1 mg PO BEDTIME 30 Days #30 cap 08/02/21 thiamine HCl (vitamin B1) 100 mg 100 mg PO DAILY 30 Days #30 tab 08/02/21 tablet trazodone 50 mg tablet 50 mg PO BEDTIME PRN 30 Days #30 08/02/21 tab naltrexone microspheres 380 mg 380 mg IM Q4W 30 Days #1 ea 08/04/21 intramuscular suspension,extended release (Vivitrol) <Baljit Marks MD - Last Filed: 08/24/21 02:19> Allergies/Adverse Reactions: Allergies Allergy/AdvReac Type Severity Reaction Status Date / Time No Known Allergies Allergy Verified 08/04/21 11:25 <Baljit Marks MD - Last Filed: 08/24/21 02:19> Review of Systems Review of Systems: Yes Unobtainable due to mental status (Alcohol intoxication) <Baljit Marks MD - Last Filed: 08/24/21 02:19> [facility] Past Medical History [facility] Narrative: Social history: Patient denied tobacco use. She has been drinking alcohol as discussed in the HPI. She denies drug use. <Baljit Marks MD - Last Filed: 08/24/21 02:19> Medical History: Medical History Alcohol abuse Alcohol dependence in early full remission Alcohol use Bipolar 1 disorder with moderate dulce maria Chronic post-traumatic stress disorder (PTSD) Iron deficiency anemia Major depression Pancreatitis (~2019) <Baljit Marks MD - Last Filed: 08/24/21 02:19> Surgical History: Surgical History H/O gastric bypass (~2013) H/O gastric bypass <Baljit Marks MD - Last Filed: 08/24/21 02:19> Social History Social History: Social History Household Members: Spouse Household Members Other:: two cats Housing: House Do you presently have visiting nurse or other home services: No Alcohol intake: current Alcohol intake frequency: 3 or more drinks per day Alcohol type: beer and hard liquor Patient Tobacco Use Status: Never used Tobacco Use of substances other than those prescribed or required for medical reasons: Unable to respond Advance Directives: No Advance Directives Information Provided: No Patient : No service: No Sexual orientation: Straight/Heterosexual <Baljit Marks MD - Last Filed: 08/24/21 02:19> Physical Exam ED Vital Signs: Vital Signs - 24 hr 08/23/21 17:30 08/23/21 19:38 08/23/21 20:26 Temperature 97.4 F Pulse Rate 89 93 95 Respiratory Rate 14 16 16 Blood Pressure 131/85 91/51 L 96/56 L Pulse Oximetry 100 100 100 08/24/21 06:21 08/24/21 07:20 Temperature 98.0 F Pulse Rate 78 81 Respiratory Rate 14 17 Blood Pressure 138/86 141/88 H Pulse Oximetry 97 BMI result Body Mass Index 27.7 <Baljit Marks MD - Last Filed: 08/24/21 02:19> Const Other: Awake, alert, female patient, she does appear to be acutely intoxicated. She answers some questions but not all questions. She has episodes where she just starts crying and then stops. <Baljit Marks MD - Last Filed: 08/24/21 02:19> Orientation/consciousness: oriented to person <Baljit Marks MD - Last Filed: 08/24/21 02:19> HENMT Head: Yes normal to inspection, Yes normocephalic and Yes atraumatic <Baljit Marks MD - Last Filed: 08/24/21 02:19> Ears: external ears normal <Baljit Marks MD - Last Filed: 08/24/21 02:19> General nose exam: Normal external nose present <MD Thiago Locke Last Filed: 08/24/21 02:19> Face and sinus: Yes normal facial exam <MD Thiago Locke Last Filed: 08/24/21 02:19> Mouth: Normal oral and palatal mucosa present <MD hTiago Locke Last Filed: 08/24/21 02:19> Throat: Yes posterior oropharynx normal <MD Thiago Locke Last Filed: 08/24/21 02:19> Eyes General: appearance normal, both eyes and all related structures <MD Thiago Locke Last Filed: 08/24/21 02:19> Pupils: Equal, round and reactive pupils present <MD Thiago Locke Last Filed: 08/24/21 02:19> Neck Neck: Yes normal visual inspection, Yes no lymphadenopathy, Yes trachea midline and Yes supple <MD Thiago Locke Last Filed: 08/24/21 02:19> Chest Chest palpation & inspection: normal inspection of the chest and normal palpation of entire chest wall <MD Thiago Locke Last Filed: 08/24/21 02:19> Resp Effort & Inspection: normal respiratory effort and able to speak in complete sentences <MD Thiago Locke Last Filed: 08/24/21 02:19> Auscultation: clear to auscultation bilaterally <MD Thiago Locke Last Filed: 08/24/21 02:19> Cardio Rate: regular rate <MD Thiago Locke Last Filed: 08/24/21 02:19> Rhythm: regular rhythm <MD Thiago Locke Last Filed: 08/24/21 02:19> Heart sounds: S1 normal heart sound present, S2 normal heart sound present and no murmurs <MD Thiago Locke Last Filed: 08/24/21 02:19> GI Inspection: Yes normal to inspection <MD Thiago Locke Last Filed: 08/24/21 02:19> Palpation (GI): Soft to palpation, nontender and no guarding <Baljit Marks MD - Last Filed: 08/24/21 02:19> Auscultation: normal bowel sounds <Baljit Marks MD - Last Filed: 08/24/21 02:19> General: Yes no CVA tenderness <Baljit Marks MD - Last Filed: 08/24/21 02:19> Back/Spine/Pelvis Back: no CVA tenderness <aBljit Marks MD - Last Filed: 08/24/21 02:19> Skin General skin exam: no rashes or lesions noted <Baljit Marks MD - Last Filed: 08/24/21 02:19> Neuro General: oriented to person <Baljit Marks MD - Last Filed: 08/24/21 02:19> Cranial nerves: Yes CN's II-XII intact bilaterally and Yes Equal, round and reactive pupils present <Baljit Marks MD - Last Filed: 08/24/21 02:19> Cognition (Neuro): normal cognition <Baljit Marks MD - Last Filed: 08/24/21 02:19> Motor exam (neuro): 5/5 motor strength present throughout <Baljit Marks MD - Last Filed: 08/24/21 02:19> Extrem General: Yes normal to inspection <Baljit Marks MD - Last Filed: 08/24/21 02:19> Psych Other: Acutely intoxicated has episodes where she cries in stops crying. Answers some questions but not all questions. <Baljit Marks MD - Last Filed: 08/24/21 02:19> Appearance: grossly normal <Baljit Marks MD - Last Filed: 08/24/21 02:19> Course Course Course Narrative: 46-year-old female with a history of alcohol use disorder, bipolar disorder PTSD who apparently has been binge drinking for 3 days and made suicidal statements to her telling him that she wanted to hang herself. The then called an ambulance the patient was transported for evaluation. On presentation the patient appears to be acutely intoxicated. Patient was recently hospitalized on our psychiatric service from 07/25/2021 until 08/02/2021 for bipolar 1 disorder with moderate dulce maria and alcohol withdrawal. Patient's vital signs were normal. Examination was consistent with alcohol intoxication. The patient initially was cooperative but then became agitated therefore she was given Haldol 5 mg IV. Laboratory evaluation was ordered. 1934: Laboratory evaluation anemia with an H&H of 8.4 and 27.8, chronic. Low MCV 69.8, chronic. CMP normal. Urine test negative. Urine tox screen positive for marijuana. Blood alcohol level was 287. Patient's presentation is consistent with acute alcohol intoxication and suicidal ideation. Given her elevated alcohol level of 287 the patient will need to be observed for at least 10 hours before she can be evaluated by Behavioral Health. Therefore the patient will be placed in physician observation. 1934: Physician observation started at 1934. Patient placed in physician observation because the patient needed time to come sober before she can be evaluated by behavior health and to determine the need for psych admission. At the time observation was started the patient's vitals were stable, patient resting comfortably,, Neuro: nonfocal, CV RRR, Lungs clear. 0: Physician observation continued: The patient is awake and alert and able answer questions, this time I believe that she is clinically sober and medically cleared for psychiatric evaluation. The end of my shift, the patient's care was turned over to my colleague, Dr. Sabra Nath/ <Baljit Marks MD - Last Filed: 08/24/21 02:19> MDM - Alcohol Lab Data Result diagrams: : 08/23/21 18:16 08/23/21 18:16 <Baljit Marks MD - Last Filed: 08/24/21 02:19> Labs: Lab Results 08/23/21 08/23/21 08/23/21 Range/Units 18:16 18:16 18:16 WBC 6.5 (4.8-10.8) X10*3/uL RBC 3.98 L (4.20-5.50) X10*6/uL Hgb 8.4 L (12.0-16.0) g/dl Hct 27.8 L (37.0-47.0) % MCV 69.8 L (80.0-98.0) fL MCH 21.1 L (27.0-33.0) pg MCHC 30.2 L (31.0-35.0) g/dl RDW 18.3 H (11.0-16.0) % Plt Count 183 (160-400) X10*3/uL MPV 10.0 (9.4-12.3) fL Immature Gran % (Auto) 0.5 H (0.0-0.4) % Neut % (Auto) 58.4 (45-73) % Lymph % (Auto) 32.9 (20-40) % [place] % (Auto) 5.1 (2-11) % Eos % (Auto) 2.5 (0-4) % Baso % (Auto) 0.6 (0-2) % Lymph # (Auto) 2.1 (1.2-4.9) X10*3/uL [place] # (Auto) 0.3 (0.1-1.2) X10*3/uL Eos # (Auto) 0.2 (0.0-0.4) X10*3/uL Baso # (Auto) 0.0 (0.0-0.2) X10*3/uL Abs Immat Gran (auto) 0.03 (0.00-0.03) X10*3/uL Absolute Neuts (auto) 3.8 (2.0-8.3) x10*3/uL Absolute Nucleated RBC 0.000 (0.0-0.012) X10*3/uL Nucleated RBC % (auto) 0.0 (0.0-0.2) /100WBC Sodium 141 (135-145) mmol/L Potassium 4.1 (3.3-5.1) mmol/L Chloride 108 (96-108) mmol/L Carbon Dioxide 26 (22-29) mmol/L Anion Gap 11 L (12-20) BUN 9 (9-16) mg/dL Creatinine 0.76 (0.5-1.4) mg/dL Estim Creat Clear Calc 97.5 Estimated GFR > 60 Random Glucose 109 (60-115) mg/dL Calcium 8.4 D (8.4-10.2) mg/dL Total Bilirubin 0.2 (0.0-1.0) mg/dL AST 31 (5-31) U/L ALT 20 (0-31) U/L Alkaline Phosphatase 110 D (39-117) U/L Total Protein 7.2 (6.5-8.0) g/dL Albumin 3.7 (3.5-5.0) g/dL Urine Test (NEGATIVE) Salicylates < 5.0 L (15-30) mg/dL Urine Opiates Screen (Not Detect) Urine Fentanyl Screen (Not Detect) Acetaminophen < 1 (<30) mcg/mL Ur Barbiturates Screen (Not Detect) Ur Phencyclidine Scrn (Not Detect) Ur Amphetamines Screen (Not Detect) U Benzodiazepines Scrn (Not Detect) Urine Cocaine Screen (Not Detect) U Marijuana (THC) Screen (Not Detect) Ethyl Alcohol 287 mg/dL 08/23/21 08/23/21 Range/Units 18:40 18:40 WBC (4.8-10.8) X10*3/uL RBC (4.20-5.50) X10*6/uL Hgb (12.0-16.0) g/dl Hct (37.0-47.0) % MCV (80.0-98.0) fL MCH (27.0-33.0) pg MCHC (31.0-35.0) g/dl RDW (11.0-16.0) % Plt Count (160-400) X10*3/uL MPV (9.4-12.3) fL Immature Gran % (Auto) (0.0-0.4) % Neut % (Auto) (45-73) % Lymph % (Auto) (20-40) % [place] % (Auto) (2-11) % Eos % (Auto) (0-4) % Baso % (Auto) (0-2) % Lymph # (Auto) (1.2-4.9) X10*3/uL [place] # (Auto) (0.1-1.2) X10*3/uL Eos # (Auto) (0.0-0.4) X10*3/uL Baso # (Auto) (0.0-0.2) X10*3/uL Abs Immat Gran (auto) (0.00-0.03) X10*3/uL Absolute Neuts (auto) (2.0-8.3) x10*3/uL Absolute Nucleated RBC (0.0-0.012) X10*3/uL Nucleated RBC % (auto) (0.0-0.2) /100WBC Sodium (135-145) mmol/L Potassium (3.3-5.1) mmol/L Chloride (96-108) mmol/L Carbon Dioxide (22-29) mmol/L Anion Gap (12-20) BUN (9-16) mg/dL Creatinine (0.5-1.4) mg/dL Estim Creat Clear Calc Estimated GFR Random Glucose (60-115) mg/dL Calcium (8.4-10.2) mg/dL Total Bilirubin (0.0-1.0) mg/dL AST (5-31) U/L ALT (0-31) U/L Alkaline Phosphatase (39-117) U/L Total Protein (6.5-8.0) g/dL Albumin (3.5-5.0) g/dL Urine Test NEGATIVE (NEGATIVE) Salicylates (15-30) mg/dL Urine Opiates Screen Not Detected (Not Detect) Urine Fentanyl Screen Not Detected (Not Detect) Acetaminophen (<30) mcg/mL Ur Barbiturates Screen Not Detected (Not Detect) Ur Phencyclidine Scrn Not Detected (Not Detect) Ur Amphetamines Screen Not Detected (Not Detect) U Benzodiazepines Scrn Not Detected (Not Detect) Urine Cocaine Screen Not Detected (Not Detect) U Marijuana (THC) Screen POSITIVE H (Not Detect) Ethyl Alcohol mg/dL <Baljit Marks MD - Last Filed: 08/24/21 02:19> Discharge Plan Discharge Clinical Impression: Suicidal ideation Alcohol intoxication Qualifiers: Complication of substance-induced condition: uncomplicated Qualified Code(s): F10.920 - Alcohol use, unspecified with intoxication, uncomplicated <Baljit Marks MD - Last Filed: 08/24/21 02:19> Patient Disposition: Still a Patient <Baljit Marks MD - Last Filed: 08/24/21 02:19> Prescriptions: No Action ferrous sulfate 324 mg (65 mg iron) Tablet,Delayed Release (Dr/Ec) 324 mg PO BIDWM 30 Days Qty: 60 0RF prazosin 1 mg Capsule 1 mg PO BEDTIME 30 Days Qty: 30 0RF Protocol: Hold for SBP< HOLD for SBP < : 90 hydroxyzine HCl 50 mg Tablet 50 mg PO BID PRN (Reason: Anxiety) 30 Days Qty: 60 0RF lithium carbonate 300 mg Tablet Extended Release 600 mg PO BEDTIME 30 Days Qty: 60 0RF naltrexone 50 mg Tablet 25 mg PO DAILY 30 Days Qty: 15 0RF trazodone 50 mg Tablet 50 mg PO BEDTIME PRN (Reason: Insomnia) 30 Days Qty: 30 0RF docosanol [Abreva] 10 % Cream 1 appl topical 5XD PRN (Reason: fever blister) 30 Days Qty: 2 0RF Protocol: Apply to: Apply to: lower lip ascorbic acid (vitamin C) 250 mg Tablet 250 mg PO BIDWM 30 Days Qty: 60 0RF thiamine HCl (vitamin B1) 100 mg Tablet 100 mg PO DAILY 30 Days Qty: 30 0RF pantoprazole 40 mg Tablet,Delayed Release (Dr/Ec) 40 mg PO DAILY 30 Days Qty: 30 0RF folic acid 1 mg tablet 1 mg PO DAILY 30 Days Qty: 30 0RF melatonin 5 mg Tablet 5 mg PO BEDTIME PRN (Reason: Sleep) 30 Days Qty: 30 0RF Vivitrol 380 mg suspension,extended rel recon 380 mg IM Q4W 30 Days Qty: 1 5RF <Baljit Marks MD - Last Filed: 08/24/21 02:19>
[2021-08-23 19:38] VITALS: BP 91/51; PULSE 93; RESP 16; O2SAT 100
[2021-08-23 20:26] VITALS: BP 96/56; PULSE 95; RESP 16; O2SAT 100
--- NOTE | 2021-08-23 21:48 | PC.NURSE ---
Giulia's sister, Mari Post ([phone]), came to ED to inquire about her sister. I spoke with her in the waiting room and informed her that I was unable to give much information due to HIPAA but I ensured her that the patient was in the ED and was safe and would remain here until morning at which time she would be evaluated by Care Team. She informed me that her plan is to attempt to obtain a Section 35 for the patient and she plans to go to the [facility] Wednesday. She also states that the patient was missing last night, we couldn't find her, we tried to track her cell phone. Some random chasidy just dropped her off at her house this afternoon at 3. We don't know what happened or where she was or if she took drugs. I again ensured the patients' sister that the patient is safe and is being closely watched and will not be allowed to leave at least and she verbalized an understanding of this.
--- NOTE | 2021-08-24 03:38 | PC.NURSE ---
I assumed care of Giulia at 1900. Since that time she has remained on a 1:1, constant observation. She arrived to the ED via EMS for evaluation of suicidal ideations and alcohol intoxication. For the first 5- hours of my shift Giulia slept - wakeful to loud verbal stimuli, but quickly fell back to sleep. At 0300 she woke to go to the bathroom. I walked beside her as she ambulated to the bathroom independently and with steady gait. At that time I briefly interviewed her about why she came to the ED . She denies SI or a plan at this time. There is no SOB. Respirations are non-labored, no cyanosis. SHe does not complain of or indicate that she is experiencing any pain. She has taken PO fluids without difficulty. We will continue to monitor Giulia.
[2021-08-24 06:21] VITALS: BP 138/86; PULSE 78; RESP 14
[2021-08-24] MEDS: diphenhydrAMINE HCL 25 MG TABLET PO (06:36)
[2021-08-24 07:20] VITALS: BP 141/88; PULSE 81; RESP 17; TEMP 36.7; O2SAT 97
[2021-08-24] MEDS: Acetaminophen 325 MG TABLET 650 MG PO (07:56)
--- NOTE | 2021-08-24 08:04 | PC.NURSE ---
pt is a/o x 3 no sob/shazia noted skin pink warm dry speaks in full sentences. amb (i) gait steady. c/o 8/10 h/a given apap 650mg po x 1. pt ate 50% of breakfast.
--- NOTE | 2021-08-24 08:06 | PC.NURSE ---
pt denies any si/hi.
--- NOTE | 2021-08-24 08:52 | PC.NURSE ---
pt's sister lexie ([phone]) CALLED [facility] [place] WAS UPDATED ON PT STATUS. PT STATES FAMILY WILL TRY TO SECTION 35 PT
--- NOTE | 2021-08-24 10:16 | MHC.CARE ---
Patient is a 45 y/o Swazi speaking, , female who is previously known to the CARE Team through a prior assessment and risk screenings.? Yesterday pt arrived at the ED via ambulance after an argument with her .? Pt and were arguing over her alcohol consumption.? Pt had been binge drinking for the past 3 days and was intoxicated (287 @1816) at the time of the argument.? Pt stated that she made a statement saying she did not want to live and was going to hang herself.? Pt stated that ?sometimes? she has thoughts of and dying, she stated that this is most often when intoxicated.? At times, she experiences these thoughts while not intoxicated saying that on these occasions it is related to her alcohol consumption.? Pt denies SI, HI, , and self-harm urges.? She denies any hx of suicide attempts. 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 She reports having an appointment on 08/22 at the [facility]. CARE Team contacted pt?s who advised CARE that he was ?Busy at work? and could not talk until after 2:00PM today. Plan is for pt to be discharged home with follow ups with her providers.? CARE Team will conduct a follow up call within the next 24-48 hours to check on pt?s status.? This disposition was discussed with and agreed upon by [employer]ic of Behavioral Health Jacquie Bahena and ED provider Moe Osborne.
== END 2021-08-24 10:42 | disposition home or self-care (01) ==
PROVIDERS: Emergency Provider Emergency Medicine Emergency Medical Services; PCP Pediatrics
DX: R45.851 Suicidal ideations (principal); F10.220 Alcohol dependence with intoxication, uncomplicated; Y90.8 Blood alcohol level of 240 mg/100 ml or more; R45.1 Restlessness and agitation; F43.12 Post-traumatic stress disorder, chronic; F31.9 Bipolar disorder, unspecified; I10 Essential (primary) hypertension; F12.90 Cannabis use, unspecified, uncomplicated; Z79.899 Other long term (current) drug therapy
CPT/HCPCS: 80053; 80143; 80179; 80307; 81025; 82077; 85025; 96361; 96374; 99285; Q0163

== ENCOUNTER 2021-09-27 08:29 | Emergency (ER) | payer MEDICAID, SELFPAY ==
[2021-09-27] MEDS: Ondansetron ODT 4 MG TAB.RAPDIS TRANSLINGU ×2 (08:51→17:04)
--- NOTE | 2021-09-27 09:13 | ED_ITS ---
HPI - Psych General Chief Complaint: Psychiatric Symptoms <Ashely Joya NP - Last Filed: 09/27/21 17:34> Stated Complaint: SECTION 12 BY CPD, SI,WANTS TO HARM SELF,NO PLAN <Ashely Joya NP - Last Filed: 09/27/21 17:34> Time Seen by Provider: 09/27/21 08:44 <Ashely Joya NP - Last Filed: 09/27/21 17:34> Source: patient and EMS <Ashely Joya NP - Last Filed: 09/27/21 17:34> Mode of arrival: EMS <Ashely Joya NP - Last Filed: 09/27/21 17:34> Limitations: no limitations <Ashely Joya NP - Last Filed: 09/27/21 17:34> History of Present Illness HPI Narrative: 46-year-old female with a history of depression, bipolar disease, asthma, alcohol abuse here with reports of suicidal thoughts. Patient tells me she recently lost her job and is getting from . Today she had thoughts of wanting to hurt herself. She had plans to cut herself with her scissors at home. Patient was seen by crisis in the community and was placed on a Section 12 bed search. Patient denies any homicidal ideations. She denies any hallucinations. She does drink 5-6 nips of alcohol daily and her last use was last night. She denies any additional substance use. She has no physical complaints. Patient denies taking any medications for her depression and bipolar disease <Ashely Joya NP - Last Filed: 09/27/21 17:34> Related Data Home Medications: Home Medications Medication Instructions Recorded Confirmed lithium carbonate 300 mg 600 mg PO BEDTIME 09/27/21 09/27/21 tablet,extended release melatonin 5 mg tablet 5 mg PO BEDTIME PRN 09/27/21 09/27/21 sertraline 25 mg tablet 1 tab PO DAILY 09/27/21 09/27/21 Previous Rx's Medication Instructions Recorded ascorbic acid (vitamin C) 250 mg 250 mg PO BIDWM 30 Days #60 tab 08/02/21 tablet docosanol 10 % topical cream 1 appl TOPICAL 5XD PRN 30 Days #2 g 08/02/21 (Abreva) ferrous sulfate 324 mg (65 mg 324 mg PO BIDWM 30 Days #60 tab 08/02/21 iron) tablet,delayed release folic acid 1 mg tablet 1 mg PO DAILY 30 Days #30 tab 08/02/21 hydroxyzine HCl 50 mg tablet 50 mg PO BID PRN 30 Days #60 tab 08/02/21 naltrexone 50 mg tablet 25 mg PO DAILY 30 Days #15 tab 08/02/21 pantoprazole 40 mg tablet,delayed 40 mg PO DAILY 30 Days #30 tab 08/02/21 release prazosin 1 mg capsule 1 mg PO BEDTIME 30 Days #30 cap 08/02/21 thiamine HCl (vitamin B1) 100 mg 100 mg PO DAILY 30 Days #30 tab 08/02/21 tablet trazodone 50 mg tablet 50 mg PO BEDTIME PRN 30 Days #30 08/02/21 tab <Ashely Joya NP - Last Filed: 09/27/21 17:34> Allergies/Adverse Reactions: Allergies Allergy/AdvReac Type Severity Reaction Status Date / Time No Known Allergies Allergy Verified 08/04/21 11:25 <Ashely Joya NP - Last Filed: 09/27/21 17:34> Review of Systems Review of Systems: Yes all other systems are reviewed and are negative <Ashely Joya NP - Last Filed: 09/27/21 17:34> Constitutional: Constitutional: Reports no additional constitutional complaints, Denies body ache(s), Denies chills, Denies fever(s), Denies headache(s) and Denies weakness <Ashely Joya NP - Last Filed: 09/27/21 17:34> Eyes: Eyes: Reports no additional eye complaints and Denies change in vision <Ashely Joya NP - Last Filed: 09/27/21 17:34> ENT: Reports system reviewed and no additional complaints, except as documented, Denies dizziness, Denies headache(s), Denies nasal congestion, Denies nasal discharge and Denies neck pain <Ashely Joya NP - Last Filed: 09/27/21 17:34> Cardiovascular: Cardiovascular: Reports no additional cardiovascular complaints, Denies chest pain, Denies leg edema and Denies dyspnea <Ashely Joya NP - Last Filed: 09/27/21 17:34> Respiratory: Respiratory: Reports no additional respiratory complaints, Denies cough and Denies dyspnea <Ashely Joya NP - Last Filed: 09/27/21 17:34> Gastrointestinal: Gastrointestinal: Reports no additional gastrointestinal complaints, Denies abdominal pain, Denies diarrhea, Reports nausea and Denies vomiting <Ashely Joya NP - Last Filed: 09/27/21 17:34> Genitourinary: Genitourinary: Reports no additional female genitourinary complaints and Denies urinary incontinence <Ashely Joya NP - Last Filed: 09/27/21 17:34> Musculoskeletal: Musculoskeletal: Reports no additional musculoskeletal com plaints, Denies back pain, Denies arthralgias, Denies joint swelling, Denies neck pain, Denies numbness and Denies tingling <Ashely Joya NP - Last Filed: 09/27/21 17:34> Integumentary/Breasts: Skin/Breast: Reports system reviewed and no additional complaints, except as docu and Denies rash <Ashely Joya NP - Last Filed: 09/27/21 17:34> Neurologic: Reports system reviewed and no additional complaints, except as documented, Denies Abnormal speech present, Denies dizziness, Denies headache(s), Denies numbness, Denies tingling and Denies weakness <Ashely Joya NP - Last Filed: 09/27/21 17:34> Psychiatric: Psychiatric: Reports anxiety, Reports depression, Denies visual hallucinations, Denies hallucinations, Denies homicidal ideation and Reports suicidal ideation <Ashely Joya NP - Last Filed: 09/27/21 17:34> PMFSH Past Medical History Attestation statement: The following information was validated with the patient. <JOE Kirby Last Filed: 09/27/21 17:34> Source: old records reviewed and nursing notes reviewed <JOE Kirby Last Filed: 09/27/21 17:34> Medical History: Medical History Alcohol abuse Alcohol dependence in early full remission Alcohol use Bipolar 1 disorder with moderate dulce maria Chronic post-traumatic stress disorder (PTSD) Iron deficiency anemia Major depression Pancreatitis (~2018) <Ashely Joya NP - Last Filed: 09/27/21 17:34> Surgical History: Surgical History H/O gastric bypass (~2013) H/O gastric bypass <Ashely Joya NP - Last Filed: 09/27/21 17:34> Social History Social History: Social History Household Members: Spouse Household Members Other:: two cats Housing: House Do you presently have visiting nurse or other home services: No Alcohol intake: current Alcohol intake frequency: 3 or more drinks per day Alcohol type: beer and hard liquor Patient Tobacco Use Status: Never used Tobacco Advance Directives: No Advance Directives Information Provided: No Patient : No service: No Sexual orientation: Straight/Heterosexual <Ashely Joya NP - Last Filed: 09/27/21 17:34> Physical Exam Vital Signs: Vital Signs: Last Vital Signs Temp 99 F 09/27/21 16:52 Pulse 71 09/27/21 16:52 Resp 18 09/27/21 16:52 BP 114/72 09/27/21 16:52 Pulse Ox 96 09/27/21 16:52 BMI result Body Mass Index 27.5 <Ashely Joya NP - Last Filed: 09/27/21 17:34> Vital Signs: Last Vital Signs Temp 99 F 09/27/21 16:52 Pulse 71 09/27/21 16:52 Resp 18 09/27/21 16:52 BP 114/72 09/27/21 16:52 Pulse Ox 96 09/27/21 16:52 BMI result Body Mass Index 27.5 <MIGUEL Sawyer - Last Filed: 09/27/21 20:15> Const: General: cooperative, healthy appearing, comfortable and no acute distress <Ashely Joya NP - Last Filed: 09/27/21 17:34> Orientation/consciousness: patient oriented x3 <JOE Kirby Last F iled: 09/27/21 17:34> Limitations: no limitations <Ashely Joya NP - Last Filed: 09/27/21 17:34> HEENT: Head: Yes normal to inspection <Ashely Joya NP - Last Filed: 09/27/21 17:34> Ears: hearing grossly normal bilaterally <Ashely Joya NP - Last Filed: 09/27/21 17:34> General nose exam: Normal external nose present <Ashely Joya NP - Last Filed: 09/27/21 17:34> Face and sinus: Yes normal facial exam <Ashely Joya NP - Last Filed: 09/27/21 17:34> Mouth: Normal oral and palatal mucosa present <Ashely Joya NP - Last Filed: 09/27/21 17:34> Throat: Yes posterior oropharynx normal <Ashely Joya NP - Last Filed: 09/27/21 17:34> Eyes: General: appearance normal, both eyes and all related structures <Ashely Joya NP - Last Filed: 09/27/21 17:34> Pupils: Equal, round and reactive pupils present <Ashely Joya NP - Last Filed: 09/27/21 17:34> Neck: Neck: Yes normal visual inspection <Ashely Joya NP - Last Filed: 09/27/21 17:34> Chest: Chest palpation & inspection: normal inspection of the chest <Ashely Joya NP - Last Filed: 09/27/21 17:34> Resp: Effort & Inspection: normal respiratory effort <Ashely Joya NP - Last Filed: 09/27/21 17:34> Auscultation: clear to auscultation bilaterally <Ashely Joya NP - Last Filed: 09/27/21 17:34> Cardio: Rate: regular rate <Ashely Joya NP - Last Filed: 09/27/21 17:34> Rhythm: regular rhythm <Ashely Joya NP - Last Filed: 09/27/21 17:34> Peripheral pulses: Peripheral pulses 2+ throughout <Ashely Joya NP - Last Filed: 09/27/21 17:34> GI: Inspection: Yes normal to inspection <Ashely Joya NP - Last Filed: 09/27/21 17:34> Palpation (GI): Soft to palpation and nontender <Ashely Joya NP - Last Filed: 09/27/21 17:34> Auscultation: normal bowel sounds <Ashely Joya NP - Last Filed: 09/27/21 17:34> Back/Spine/Pelvis: Thoracic/Lumbar Spine: thoracic and lumbar spine normal to inspection <Ashely Joya NP - Last Filed: 09/27/21 17:34> Skin: General skin exam: no rashes or lesions noted <Ashely Joya NP - Last Filed: 09/27/21 17:34> Neuro: General: patient oriented x3, no focal motor deficits and normal sensation to monofilament <Ashely Joya NP - Last Filed: 09/27/21 17:34> Cranial nerves: Yes CN's II-XII intact bilaterally and Yes Equal, round and reactive pupils present <Ashely Joya NP - Last Filed: 09/27/21 17:34> Cognition (Neuro): normal cognition <Ashely Joya NP - Last Filed: 09/27/21 17:34> Speech: No Abnormal speech present <Ashely Joya NP - Last Filed: 09/27/21 17:34> Gait exam (Neuro): Normal gait present <Ashely Joya NP - Last Filed: 09/27/21 17:34> Motor exam (neuro): 5/5 motor strength present throughout <Ashely Joya NP - Last Filed: 09/27/21 17:34> Extrem: General: Yes normal to inspection <Ashely Joya NP - Last Filed: 09/27/21 17:34> Course Course Course Narrative: 46-year-old female here with reports of suicidal thoughts on a Section 12. No physical complaints. No concern for acute ingestion or trauma. Will check labs, drug screen, COVID screen. Once medically cleared will need a crisis evaluation <Ashely Joya NP - Last Filed: 09/27/21 17:34> Reevaluation(s) Reevaluation #1: Nursing will be checking CIWA scores q.4 hours. Patient has required intermittent Ativan for her CIWA score. She is tolerating p.o.. Her vitals are stable. She is alert and oriented. At this time she is cleared from crisis evaluation. Placed in physician observation pending disposition <Ashely Joya NP - Last Filed: 09/27/21 17:34> Time: 17:30 <Ashely Joya NP - Last Filed: 09/27/21 17:34> Reevaluation #2: Sign out to night team pending disposition <Ashely Joya NP - Last F iled: 09/27/21 17:34> Time: 18:00 <Ashely Joya NP - Last Filed: 09/27/21 17:34> Reevaluation #3: Aysha Kinney: Xochilt from crisis, [facility], tells me patient is not suicidal, she is here for alcohol abuse, she will be discharged with referrals for alcohol abuse recovery <MIGUEL Sawyer - Last Filed: 09/27/21 20:15> MDM - Psych Medical Records Attestation: I reviewed the patient's medical records. <Ashely Joya NP - Last Filed: 09/27/21 17:34> Lab Data Attestation: I reviewed the patient's lab results. <Ashely Joya NP - Last Filed: 09/27/21 17:34> Result diagrams: : 09/27/21 09:32 09/27/21 09:31 <Ashely Joya NP - Last Filed: 09/27/21 17:34> Labs: Lab Results 09/27/21 09/27/21 09/27/21 Range/Units 09:17 09:20 09:31 WBC (4.8-10.8) X10*3/uL RBC (4.20-5.50) X10*6/uL Hgb (12.0-16.0) g/dl Hct (37.0-47.0) % MCV (80.0-98.0) fL MCH (27.0-33.0) pg MCHC (31.0-35.0) g/dl RDW (11.0-16.0) % Plt Count (160-400) X10*3/uL MPV (9.4-12.3) fL Immature Gran % (Auto) (0.0-0.4) % Neut % (Auto) (45-73) % Lymph % (Auto) (20-40) % [place] % (Auto) (2-11) % Eos % (Auto) (0-4) % Baso % (Auto) (0-2) % Lymph # (Auto) (1.2-4.9) X10*3/uL [place] # (Auto) (0.1-1.2) X10*3/uL Eos # (Auto) (0.0-0.4) X10*3/uL Baso # (Auto) (0.0-0.2) X10*3/uL Abs Immat Gran (auto) (0.00-0.03) X10*3/uL Absolute Neuts (auto) (2.0-8.3) x10*3/uL Absolute Nucleated RBC (0.0-0.012) X10*3/uL Nucleated RBC % (auto) (0.0-0.2) /100WBC Sodium 143 (135-145) mmol/L Potassium 4.2 (3.3-5.1) mmol/L Chloride 106 (96-108) mmol/L Carbon Dioxide 26 (22-29) mmol/L Anion Gap 15 (12-20) BUN 15 D (9-16) mg/dL Creatinine 0.78 (0.5-1.4) mg/dL Estim Creat Clear Calc 91.3 Estimated GFR > 60 Random Glucose 102 (60-115) mg/dL Calcium 9.0 D (8.4-10.2) mg/dL Total Bilirubin 0.3 (0.0-1.0) mg/dL Direct Bilirubin < 0.2 (0.0-0.5) mg/dL AST 34 H (5-31) U/L ALT 16 (0-31) U/L Alkaline Phosphatase 110 (39-117) U/L Total Protein 8.1 H (6.5-8.0) g/dL Albumin 4.2 (3.5-5.0) g/dL Urine Opiates Screen Not Detected (Not Detect) Urine Fentanyl Screen Not Detected (Not Detect) Ur Barbiturates Screen Not Detected (Not Detect) Ur Phencyclidine Scrn Not Detected (Not Detect) Ur Amphetamines Screen Not Detected (Not Detect) U Benzodiazepines Scrn Not Detected (Not Detect) [place] (0.60-1.20) mmol/L Urine Cocaine Screen Not Detected (Not Detect) U Marijuana (THC) Screen POSITIVE H (Not Detect) Ethyl Alcohol mg/dL COVID-19 (MIKA) Negative (Negative) COVID-19 Clin Com See Note 09/27/21 09/27/21 09/27/21 Range/Units 09:31 09:31 09:32 WBC 5.1 (4.8-10.8) X10*3/uL RBC 4.58 (4.20-5.50) X10*6/uL Hgb 9.5 L (12.0-16.0) g/dl Hct 31.7 L (37.0-47.0) % MCV 69.2 L (80.0-98.0) fL MCH 20.7 L (27.0-33.0) pg MCHC 30.0 L (31.0-35.0) g/dl RDW 19.0 H (11.0-16.0) % Plt Count 280 D (160-400) X10*3/uL MPV 9.7 (9.4-12.3) fL Immature Gran % (Auto) 0.2 (0.0-0.4) % Neut % (Auto) 62.5 (45-73) % Lymph % (Auto) 31.2 (20-40) % [place] % (Auto) 4.7 (2-11) % Eos % (Auto) 0.8 (0-4) % Baso % (Auto) 0.6 (0-2) % Lymph # (Auto) 1.6 (1.2-4.9) X10*3/uL [place] # (Auto) 0.2 (0.1-1.2) X10*3/uL Eos # (Auto) 0.0 (0.0-0.4) X10*3/uL Baso # (Auto) 0.0 (0.0-0.2) X10*3/uL Abs Immat Gran (auto) 0.01 (0.00-0.03) X10*3/uL Absolute Neuts (auto) 3.2 (2.0-8.3) x10*3/uL Absolute Nucleated RBC 0.000 (0.0-0.012) X10*3/uL Nucleated RBC % (auto) 0.0 (0.0-0.2) /100WBC Sodium (135-145) mmol/L Potassium (3.3-5.1) mmol/L Chloride (96-108) mmol/L Carbon Dioxide (22-29) mmol/L Anion Gap (12-20) BUN (9-16) mg/dL Creatinine (0.5-1.4) mg/dL Estim Creat Clear Calc Estimated GFR Random Glucose (60-115) mg/dL Calcium (8.4-10.2) mg/dL Total Bilirubin (0.0-1.0) mg/dL Direct Bilirubin (0.0-0.5) mg/dL AST (5-31) U/L ALT (0-31) U/L Alkaline Phosphatase (39-117) U/L Total Protein (6.5-8.0) g/dL Albumin (3.5-5.0) g/dL Urine Opiates Screen (Not Detect) Urine Fentanyl Screen (Not Detect) Ur Barbiturates Screen (Not Detect) Ur Phencyclidine Scrn (Not Detect) Ur Amphetamines Screen (Not Detect) U Benzodiazepines Scrn (Not Detect) [place] < 0.10 L (0.60-1.20) mmol/L Urine Cocaine Screen (Not Detect) U Marijuana (THC) Screen (Not Detect) Ethyl Alcohol 230 mg/dL COVID-19 (MIKA) (Negative) COVID-19 Clin Com <Ashely Joya [employer]IST - Last Filed: 09/27/21 17:34> Lab Results 09/27/21 09/27/21 09/27/21 Range/Units 09:17 09:20 09:31 WBC (4.8-10.8) X10*3/uL RBC (4.20-5.50) X10*6/uL Hgb (12.0-16.0) g/dl Hct (37.0-47.0) % MCV (80.0-98.0) fL MCH (27.0-33.0) pg MCHC (31.0-35.0) g/dl RDW (11.0-16.0) % Plt Count (160-400) X10*3/uL MPV (9.4-12.3) fL Immature Gran % (Auto) (0.0-0.4) % Neut % (Auto) (45-73) % Lymph % (Auto) (20-40) % [place] % (Auto) (2-11) % Eos % (Auto) (0-4) % Baso % (Auto) (0-2) % Lymph # (Auto) (1.2-4.9) X10*3/uL [place] # (Auto) (0.1-1.2) X10*3/uL Eos # (Auto) (0.0-0.4) X10*3/uL Baso # (Auto) (0.0-0.2) X10*3/uL Abs Immat Gran (auto) (0.00-0.03) X10*3/uL Absolute Neuts (auto) (2.0-8.3) x10*3/uL Absolute Nucleated RBC (0.0-0.012) X10*3/uL Nucleated RBC % (auto) (0.0-0.2) /100WBC Sodium 143 (135-145) mmol/L Potassium 4.2 (3.3-5.1) mmol/L Chloride 106 (96-108) mmol/L Carbon Dioxide 26 (22-29) mmol/L Anion Gap 15 (12-20) BUN 15 D (9-16) mg/dL Creatinine 0.78 (0.5-1.4) mg/dL Estim Creat Clear Calc 91.3 Estimated GFR > 60 Random Glucose 102 (60-115) mg/dL Calcium 9.0 D (8.4-10.2) mg/dL Total Bilirubin 0.3 (0.0-1.0) mg/dL Direct Bilirubin < 0.2 (0.0-0.5) mg/dL AST 34 H (5-31) U/L ALT 16 (0-31) U/L Alkaline Phosphatase 110 (39-117) U/L Total Protein 8.1 H (6.5-8.0) g/dL Albumin 4.2 (3.5-5.0) g/dL Urine Opiates Screen Not Detected (Not Detect) Urine Fentanyl Screen Not Detected (Not Detect) Ur Barbiturates Screen Not Detected (Not Detect) Ur Phencyclidine Scrn Not Detected (Not Detect) Ur Amphetamines Screen Not Detected (Not Detect) U Benzodiazepines Scrn Not Detected (Not Detect) [place] (0.60-1.20) mmol/L Urine Cocaine Screen Not Detected (Not Detect) U Marijuana (THC) Screen POSITIVE H (Not Detect) Ethyl Alcohol mg/dL COVID-19 (MIKA) Negative (Negative) COVID-19 Clin Com See Note 09/27/21 09/27/21 09/27/21 Range/Units 09:31 09:31 09:32 WBC 5.1 (4.8-10.8) X10*3/uL RBC 4.58 (4.20-5.50) X10*6/uL Hgb 9.5 L (12.0-16.0) g/dl Hct 31.7 L (37.0-47.0) % MCV 69.2 L (80.0-98.0) fL MCH 20.7 L (27.0-33.0) pg MCHC 30.0 L (31.0-35.0) g/dl RDW 19.0 H (11.0-16.0) % Plt Count 280 D (160-400) X10*3/uL MPV 9.7 (9.4-12.3) fL Immature Gran % (Auto) 0.2 (0.0-0.4) % Neut % (Auto) 62.5 (45-73) % Lymph % (Auto) 31.2 (20-40) % [place] % (Auto) 4.7 (2-11) % Eos % (Auto) 0.8 (0-4) % Baso % (Auto) 0.6 (0-2) % Lymph # (Auto) 1.6 (1.2-4.9) X10*3/uL [place] # (Auto) 0.2 (0.1-1.2) X10*3/uL Eos # (Auto) 0.0 (0.0-0.4) X10*3/uL Baso # (Auto) 0.0 (0.0-0.2) X10*3/uL Abs Immat Gran (auto) 0.01 (0.00-0.03) X10*3/uL Absolute Neuts (auto) 3.2 (2.0-8.3) x10*3/uL Absolute Nucleated RBC 0.000 (0.0-0.012) X10*3/uL Nucleated RBC % (auto) 0.0 (0.0-0.2) /100WBC Sodium (135-145) mmol/L Potassium (3.3-5.1) mmol/L Chloride (96-108) mmol/L Carbon Dioxide (22-29) mmol/L Anion Gap (12-20) BUN (9-16) mg/dL Creatinine (0.5-1.4) mg/dL Estim Creat Clear Calc Estimated GFR Random Glucose (60-115) mg/dL Calcium (8.4-10.2) mg/dL Total Bilirubin (0.0-1.0) mg/dL Direct Bilirubin (0.0-0.5) mg/dL AST (5-31) U/L ALT (0-31) U/L Alkaline Phosphatase (39-117) U/L Total Protein (6.5-8.0) g/dL Albumin (3.5-5.0) g/dL Urine Opiates Screen (Not Detect) Urine Fentanyl Screen (Not Detect) Ur Barbiturates Screen (Not Detect) Ur Phencyclidine Scrn (Not Detect) Ur Amphetamines Screen (Not Detect) U Benzodiazepines Scrn (Not Detect) [place] < 0.10 L (0.60-1.20) mmol/L Urine Cocaine Screen (Not Detect) U Marijuana (THC) Screen (Not Detect) Ethyl Alcohol 230 mg/dL COVID-19 (MIKA) (Negative) COVID-19 Clin Com <MIGUEL Sawyer - Last Filed: 09/27/21 20:15> Discharge Plan Discharge Clinical Impression: Suicidal ideation <Ashely Joya NP - Last Filed: 09/27/21 17:34> Patient Disposition: Still a Patient <Ashely Joya NP - Last Filed: 09/27/21 17:34> Prescriptions: No Action ferrous sulfate 324 mg (65 mg iron) Tablet,Delayed Release (Dr/Ec) 324 mg PO BIDWM 30 Days Qty: 60 0RF prazosin 1 mg Capsule 1 mg PO BEDTIME 30 Days Qty: 30 0RF Protocol: Hold for SBP< HOLD for SBP < : 90 hydroxyzine HCl 50 mg Tablet 50 mg PO BID PRN (Reason: Anxiety) 30 Days Qty: 60 0RF naltrexone 50 mg Tablet 25 mg PO DAILY 30 Days Qty: 15 0RF trazodone 50 mg Tablet 50 mg PO BEDTIME PRN (Reason: Insomnia) 30 Days Qty: 30 0RF docosanol [Abreva] 10 % Cream 1 appl topical 5XD PRN (Reason: fever blister) 30 Days Qty: 2 0RF Protocol: Apply to: Apply to: lower lip ascorbic acid (vitamin C) 250 mg Tablet 250 mg PO BIDWM 30 Days Qty: 60 0RF thiamine HCl (vitamin B1) 100 mg Tablet 100 mg PO DAILY 30 Days Qty: 30 0RF pantoprazole 40 mg Tablet,Delayed Release (Dr/Ec) 40 mg PO DAILY 30 Days Qty: 30 0RF folic acid 1 mg tablet 1 mg PO DAILY 30 Days Qty: 30 0RF lithium carbonate 300 mg tablet extended release 600 mg PO BEDTIME 0RF sertraline 25 mg tablet 1 tab PO DAILY 0RF melatonin 5 mg Tablet 5 mg PO BEDTIME PRN (Reason: Insomnia) 0RF <Ashely Joya NP - Last Filed: 09/27/21 17:34>
[2021-09-27 09:18] VITALS: BP 134/90; BP 148/92; PULSE 102; PULSE 98; RESP 18; TEMP 36.6; O2SAT 99; BMI 27.5
[2021-09-27 09:40] LABS: MANUAL DIFF FLAG NO
[2021-09-27 09:47] LABS: Basophils Percent Auto 0.6 % (0-2); Eosinophils Percent Auto 0.8 % (0-4); Hematocrit 31.7 % (37.0-47.0); Hemoglobin 9.5 g/dl (12.0-16.0); Imm Gran Abs Auto 0.01 X10*3/uL (0.00-0.03); Imm Gran Pct Auto 0.2 % (0.0-0.4); Lymphocytes Absolute Auto 1.6 X10*3/uL (1.2-4.9); Lymphocytes Percent Auto 31.2 % (20-40); Mean Corpuscular Hemoglobin 20.7 pg (27.0-33.0); Mean Corpuscular Volume 69.2 fL (80.0-98.0); Mean Platelet Volume 9.7 fL (9.4-12.3); Monocytes Absolute Auto 0.2 X10*3/uL (0.1-1.2); Monocytes Percent Auto 4.7 % (2-11); Neutrophils Absolute Auto 3.2 x10*3/uL (2.0-8.3); Neutrophils Percent Auto 62.5 % (45-73); Platelet Count 280 X10*3/uL (160-400); Red Blood Count 4.58 X10*6/uL (4.20-5.50); White Blood Count 5.1 X10*3/uL (4.8-10.8)
[2021-09-27 09:58] LABS: Ethanol 230 mg/dL
[2021-09-27 10:01] LABS: Amphetamine Screen Urine Not Detected (Not Detect); Barbiturates, Urine Not Detected (Not Detect); Benzodiazepines Screen Urine Not Detected (Not Detect); Cannabinoid Screen Urine POSITIVE (Not Detect); Cocaine Screen Urine Not Detected (Not Detect); Fentanyl, urine Not Detected (Not Detect); Opiate Screen Urine Not Detected (Not Detect); Phencyclidine Screen Urine Not Detected (Not Detect)
[2021-09-27 10:02] LABS: COVID-19 Test Negative (Negative); IDNOW Serial# 16C4AD1C
[2021-09-27 10:03] LABS: Alanine Aminotransferase 16 U/L (0-31); Albumin Level 4.2 g/dL (3.5-5.0); Alkaline Phosphatase 110 U/L (39-117); Anion Gap 15 (12-20); Aspartate Amino Transferase 34 U/L (5-31); Bilirubin Direct < 0.2 mg/dL (0.0-0.5); Bilirubin Total 0.3 mg/dL (0.0-1.0); Blood Urea Nitrogen 15 mg/dL (9-16); Carbon Dioxide 26 mmol/L (22-29); Chloride 106 mmol/L (96-108); Creatinine Clr Calc Pharmacy 91.3; Estimated Glomerular Filt Rate > 60; Glucose Random 102 mg/dL (60-115); Potassium 4.2 mmol/L (3.3-5.1); Sodium 143 mmol/L (135-145); Total Protein 8.1 g/dL (6.5-8.0)
[2021-09-27] MEDS: LORazepam 0.5 MG TABLET PO (11:55)
[2021-09-27 14:08] VITALS: BP 117/78; PULSE 96; TEMP 36.9; O2SAT 100
[2021-09-27] MEDS: Acetaminophen 325 MG TABLET 650 MG PO (14:23)
[2021-09-27 16:52] VITALS: BP 114/72; PULSE 71; RESP 18; TEMP 37.2; O2SAT 96
[2021-09-27] MEDS: LORazepam 1 MG TABLET 2 MG PO (17:04)
[2021-09-27 19:27] LABS: Lithium < 0.10 mmol/L (0.60-1.20)
== END 2021-09-27 20:40 | disposition home or self-care (01) ==
PROVIDERS: Nurse Practitioner Family; Emergency Provider Emergency Medicine Emergency Medical Services; PCP Internal Medicine
DX: R45.851 Suicidal ideations (principal); F32.A Depression, unspecified; F31.9 Bipolar disorder, unspecified; F10.20 Alcohol dependence, uncomplicated; J45.909 Unspecified asthma, uncomplicated; Z79.899 Other long term (current) drug therapy; Z20.822 Contact with and (suspected) exposure to COVID-19
CPT/HCPCS: 36415; 80048; 80076; 80178; 80307; 82077; 85025; 87635; 99285

== ENCOUNTER 2021-09-29 21:27 | Inpatient (IN) | payer OTHER, MEDICAID, SELFPAY ==
--- NOTE | 2021-09-29 21:31 | ECG_ITS ---
Test Reason : SI/OVERDOSED Blood Pressure : / mmHG Vent. Rate : 086 BPM Atrial Rate : 086 BPM P-R Int : 148 ms QRS Dur : 076 ms QT Int : 408 ms P-R-T Axes : 073 025 027 degrees QTc Int : 488 ms Normal sinus rhythm Low voltage QRS Prolonged QT Abnormal ECG No previous ECGs available Referred By: Lakeisha Hernandez Electronically Signed By:LAURA GUARDADO MD
[2021-09-29 21:36] VITALS: BP 108/77; BP 117/81; PULSE 87; PULSE 99; RESP 17; TEMP 36.5; O2SAT 98; O2SAT 99; BMI 30.7
--- NOTE | 2021-09-29 21:38 | ECG_ITS ---
Test Reason : OVERDOSED Blood Pressure : / mmHG Vent. Rate : 080 BPM Atrial Rate : 080 BPM P-R Int : 160 ms QRS Dur : 088 ms QT Int : 450 ms P-R-T Axes : 065 044 018 degrees QTc Int : 519 ms Normal sinus rhythm Nonspecific T wave abnormality Prolonged QT Abnormal ECG When compared with ECG of 29-SEP-2021 21:31, No significant change was found Referred By: Lakeisha Hernandez Electronically Signed By:LAURA GUARDADO MD
--- NOTE | 2021-09-29 21:43 | ED.OVERDOSE ---
HPI - Overdose General Chief Complaint: Overdose Stated Complaint: OD/Section 12 Time Seen by Provider: 09/29/21 21:36 Source: patient and EMS Mode of arrival: EMS Limitations: no limitations History of Present Illness HPI Narrative: Patient comes to the emergency room via ambulance and on a Section 12, accompanied by police department. Between 19:30 and 20:00, approximately 2 hours ago, patient attempted to commit suicide. Patient was on the phone with her sister, states she had a fight with her . Patient took an unknown dose hydroxyzine, PD estimate approximately 40+ tablets, and patient states that she drank approximately 45 minutes of alcohol along with the tablets. Patient's sister called police department. Patient is suicidal, attempted committing suicide by overdose, patient has history of multiple suicide attempts according to EMS. Patient denies feeling homicidal. EMS found the patient unresponsive, woke up to sternal rub, the patient has been awake, alert, responds to voice. Patient complaining of nausea, no vomiting. Related Data Home Medications Medication Instructions Recorded Confirmed lithium carbonate 300 mg 600 mg PO BEDTIME 09/27/21 09/27/21 tablet,extended release melatonin 5 mg tablet 5 mg PO BEDTIME PRN 09/27/21 09/27/21 sertraline 25 mg tablet 1 tab PO DAILY 09/27/21 09/27/21 Previous Rx's Medication Instructions Recorded ascorbic acid (vitamin C) 250 mg 250 mg PO BIDWM 30 Days #60 tab 08/02/21 tablet docosanol 10 % topical cream 1 appl TOPICAL 5XD PRN 30 Days #2 g 08/02/21 (Abreva) ferrous sulfate 324 mg (65 mg 324 mg PO BIDWM 30 Days #60 tab 08/02/21 iron) tablet,delayed release folic acid 1 mg tablet 1 mg PO DAILY 30 Days #30 tab 08/02/21 hydroxyzine HCl 50 mg tablet 50 mg PO BID PRN 30 Days #60 tab 08/02/21 naltrexone 50 mg tablet 25 mg PO DAILY 30 Days #15 tab 08/02/21 pantoprazole 40 mg tablet,delayed 40 mg PO DAILY 30 Days #30 tab 08/02/21 release prazosin 1 mg capsule 1 mg PO BEDTIME 30 Days #30 cap 08/02/21 thiamine HCl (vitamin B1) 100 mg 100 mg PO DAILY 30 Days #30 tab 08/02/21 tablet trazodone 50 mg tablet 50 mg PO BEDTIME PRN 30 Days #30 08/02/21 tab Allergies Allergy/AdvReac Type Severity Reaction Status Date / Time No Known Allergies Allergy Verified 09/29/21 21:48 Review of Systems Review of Systems: Constitutional : Denies fever chills ENT/Mouth : No Hearing loss, No Ear Pain, No Nasal Congestion, No Sinus Pain, No Hoarseness, No sore throat, No Rhinorrhea, No Swallowing Difficulty Eyes: No Eye Pain, No Swelling, No Redness, No Foreign Body, No Discharge, No Vision Changes Cardiovascular : No Chest Pain, No SOB, No Dyspnea on Exertion, No Orthopnea, No Edema, No Palpitations Respiratory : No Cough, No Sputum, No Wheezing, No Smoke Exposure, No Dyspnea Gastrointestinal : Complaining of nausea, No Vomiting, No Diarrhea, No Constipation, mild diffuse abdominal Pain/cramping, No Hematochezia, No Melena Genitourinary : no irregular bleeding, No Dysuria, No Urinary Frequency, No Hematuria, No Urinary Incontinence, No Urgency, No Flank Pain, No Urinary Flow Changes, No Hesitancy Musculoskeletal : No joint pain, No Myalgias, No Joint Swelling Skin : No Skin Lesions, No rash Neuro : No Weakness, No Numbness, No Paresthesias, No Loss of Consciousness, No Dizziness, No Headache Psych : Complaining of anxiety, depression, suicide attempt, no homicidal ideation Heme/Lymph: No Bruising, No Bleeding,No Lymphadenopathy Endocrine : No Polyuria, No Polydipsia, No Temperature Intolerance [facility] Past Medical History Medical History Alcohol abuse Alcohol dependence in early full remission Alcohol use Bipolar 1 disorder with moderate dulce maria Chronic post-traumatic stress disorder (PTSD) Iron deficiency anemia Major depression Pancreatitis (~2018) Surgical History H/O gastric bypass (~2013) H/O gastric bypass Social History Social History Household Members: Spouse Household Members Other:: two cats Housing: House Do you presently have visiting nurse or other home services: No Alcohol intake: current Alcohol intake frequency: 3 or more drinks per day Alcohol type: beer and hard liquor Patient Tobacco Use Status: Never used Tobacco Substance Use Type: Prescription Drugs Advance Directives: No Suicidal Behavior: History of suicide attemps Current/Past Psychiatric Disorders: Alcohol abuse service: No Sexual orientation: Straight/Heterosexual Physical Exam Vital Signs: Vital Signs: Last Vital Signs Temp 97.8 F 09/29/21 23:34 Pulse 80 09/29/21 23:34 Resp 20 09/29/21 23:34 BP 93/60 09/29/21 23:34 Pulse Ox 100 09/29/21 23:34 BMI result Body Mass Index 30.7 Const: Other: Appearance: Alert. Oriented X3. No acute distress. Drowsy but looks uncomfortable, nauseous Eyes: Pupils equal, round and reactive to light. Patient has mild periorbital edema bilaterally ENT: Pharynx normal. Neck: Normal inspection. Neck supple. No lymph nodes noted. No crepitus CVS: Normal heart rate and rhythm. Pulses normal. Normal S1 and S2 Respiratory: No respiratory distress. Breath sounds normal. No Wheezing. No rales Abdomen: Soft and nontender. No rigidity. No distention. Skin: Skin warm and dry. Normal skin color. Normal skin turgor. Extremities: No lower extremity edema. No Lacerations. No Rash Neuro: Oriented X 3. No motor deficit. No sensory deficit. Moving all extremities. No slurred speech. CN 2 through 12 grossly intact Psych: calm, cooperative Course Course Course Narrative: All of patient's labs are pending, EKG has been obtained, we will contact poison Control now Patient control recommended labs, all have been already ordered. No further recommendations other than EKGs q.4 hours. Patient had vomiting, sleeping, easily arousable. Vital stable. Patient's potassium is normal 3.7. However, poison Control recommends to have a potassium level of 4.0. Patient being given p.o. potassium. Patient awake and alert, states she agrees with the plan to drink p.o. potassium. Physician observation started at 23:40 MDM - Overdose Lab Data Result diagrams: 09/29/21 22:00 09/29/21 22:01 Labs: Lab Results 09/29/21 09/29/21 09/29/21 Range/Units 22:00 22:00 22:00 WBC 4.5 L (4.8-10.8) X10*3/uL RBC 4.37 (4.20-5.50) X10*6/uL Hgb 9.0 L (12.0-16.0) g/dl Hct 30.0 L (37.0-47.0) % MCV 68.6 L (80.0-98.0) fL MCH 20.6 L (27.0-33.0) pg MCHC 30.0 L (31.0-35.0) g/dl RDW 18.1 H (11.0-16.0) % Plt Count 184 D (160-400) X10*3/uL MPV 9.4 (9.4-12.3) fL Immature Gran % (Auto) 0.2 (0.0-0.4) % Neut % (Auto) 49.1 (45-73) % Lymph % (Auto) 42.7 H (20-40) % Teller % (Auto) 5.8 (2-11) % Eos % (Auto) 1.8 (0-4) % Baso % (Auto) 0.4 (0-2) % Lymph # (Auto) 1.9 (1.2-4.9) X10*3/uL Teller # (Auto) 0.3 (0.1-1.2) X10*3/uL Eos # (Auto) 0.1 (0.0-0.4) X10*3/uL Baso # (Auto) 0.0 (0.0-0.2) X10*3/uL Abs Immat Gran (auto) 0.01 (0.00-0.03) X10*3/uL Absolute Neuts (auto) 2.2 (2.0-8.3) x10*3/uL Absolute Nucleated RBC 0.000 (0.0-0.012) X10*3/uL Nucleated RBC % (auto) 0.0 (0.0-0.2) /100WBC PT 12.4 (9.9-13.0) SEC INR 1.1 (0.9-1.1) VBG pH (7.32-7.43) VBG pCO2 mmHg VBG pO2 mmHg VBG HCO3 (22-26) mmol/L VBG O2 Saturation % VBG Base Excess mmol/L Sodium (135-145) mmol/L Potassium (3.3-5.1) mmol/L Chloride (96-108) mmol/L Carbon Dioxide (22-29) mmol/L Anion Gap (12-20) BUN (9-16) mg/dL Creatinine (0.5-1.4) mg/dL Estim Creat Clear Calc Estimated GFR Random Glucose (60-115) mg/dL Calcium (8.4-10.2) mg/dL Magnesium (1.6-2.6) mg/dL Total Bilirubin (0.0-1.0) mg/dL Direct Bilirubin (0.0-0.5) mg/dL AST (5-31) U/L ALT (0-31) U/L Alkaline Phosphatase (39-117) U/L Troponin I High Sens < 3.5 (<3.5-17.0) ng/L Total Protein (6.5-8.0) g/dL Albumin (3.5-5.0) g/dL Lipase (8-78) U/L Beta HCG, Quant mIU/mL Salicylates (15-30) mg/dL Acetaminophen (<30) mcg/mL Round [place] (0.60-1.20) mmol/L Ethyl Alcohol mg/dL COVID-19 ([facility]KA) (Negative) COVID-19 Clin Com 09/29/21 09/29/21 09/29/21 Range/Units 22:01 22:01 22:01 WBC (4.8-10.8) X10*3/uL RBC (4.20-5.50) X10*6/uL Hgb (12.0-16.0) g/dl Hct (37.0-47.0) % MCV (80.0-98.0) fL MCH (27.0-33.0) pg MCHC (31.0-35.0) g/dl RDW (11.0-16.0) % Plt Count (160-400) X10*3/uL MPV (9.4-12.3) fL Immature Gran % (Auto) (0.0-0.4) % Neut % (Auto) (45-73) % Lymph % (Auto) (20-40) % Teller % (Auto) (2-11) % Eos % (Auto) (0-4) % Baso % (Auto) (0-2) % Lymph # (Auto) (1.2-4.9) X10*3/uL Teller # (Auto) (0.1-1.2) X10*3/uL Eos # (Auto) (0.0-0.4) X10*3/uL Baso # (Auto) (0.0-0.2) X10*3/uL Abs Immat Gran (auto) (0.00-0.03) X10*3/uL Absolute Neuts (auto) (2.0-8.3) x10*3/uL Absolute Nucleated RBC (0.0-0.012) X10*3/uL Nucleated RBC % (auto) (0.0-0.2) /100WBC PT (9.9-13.0) SEC INR (0.9-1.1) VBG pH (7.32-7.43) VBG pCO2 mmHg VBG pO2 mmHg VBG HCO3 (22-26) mmol/L VBG O2 Saturation % VBG Base Excess mmol/L Sodium 144 (135-145) mmol/L Potassium 3.7 (3.3-5.1) mmol/L Chloride 112 H (96-108) mmol/L Carbon Dioxide 20 L (22-29) mmol/L Anion Gap 16 (12-20) BUN 12 (9-16) mg/dL Creatinine 0.77 (0.5-1.4) mg/dL Estim Creat Clear Calc 100.9 Estimated GFR > 60 Random Glucose 131 H (60-115) mg/dL Calcium 8.9 (8.4-10.2) mg/dL Magnesium 2.3 (1.6-2.6) mg/dL Total Bilirubin 0.2 (0.0-1.0) mg/dL Direct Bilirubin < 0.2 (0.0-0.5) mg/dL AST 27 (5-31) U/L ALT 13 (0-31) U/L Alkaline Phosphatase 109 (39-117) U/L Troponin I High Sens (<3.5-17.0) ng/L Total Protein 7.9 (6.5-8.0) g/dL Albumin 4.0 (3.5-5.0) g/dL Lipase 23 (8-78) U/L Beta HCG, Quant < 2 mIU/mL Salicylates < 5.0 L (15-30) mg/dL Acetaminophen < 1 (<30) mcg/mL Round [place] (0.60-1.20) mmol/L Ethyl Alcohol 313 H* mg/dL COVID-19 ([facility]KA) Negative (Negative) COVID-19 Clin Com See Note 09/29/21 09/29/21 Range/Units 22:01 22:04 WBC (4.8-10.8) X10*3/uL RBC (4.20-5.50) X10*6/uL Hgb (12.0-16.0) g/dl Hct (37.0-47.0) % MCV (80.0-98.0) fL MCH (27.0-33.0) pg MCHC (31.0-35.0) g/dl RDW (11.0-16.0) % Plt Count (160-400) X10*3/uL MPV (9.4-12.3) fL Immature Gran % (Auto) (0.0-0.4) % Neut % (Auto) (45-73) % Lymph % (Auto) (20-40) % Teller % (Auto) (2-11) % Eos % (Auto) (0-4) % Baso % (Auto) (0-2) % Lymph # (Auto) (1.2-4.9) X10*3/uL Teller # (Auto) (0.1-1.2) X10*3/uL Eos # (Auto) (0.0-0.4) X10*3/uL Baso # (Auto) (0.0-0.2) X10*3/uL Abs Immat Gran (auto) (0.00-0.03) X10*3/uL Absolute Neuts (auto) (2.0-8.3) x10*3/uL Absolute Nucleated RBC (0.0-0.012) X10*3/uL Nucleated RBC % (auto) (0.0-0.2) /100WBC PT (9.9-13.0) SEC INR (0.9-1.1) VBG pH 7.40 (7.32-7.43) VBG pCO2 27 mmHg VBG pO2 90 mmHg VBG HCO3 17 L (22-26) mmol/L VBG O2 Saturation 94.0 % VBG Base Excess -6.0 mmol/L Sodium (135-145) mmol/L Potassium (3.3-5.1) mmol/L Chloride (96-108) mmol/L Carbon Dioxide (22-29) mmol/L Anion Gap (12-20) BUN (9-16) mg/dL Creatinine (0.5-1.4) mg/dL Estim Creat Clear Calc Estimated GFR Random Glucose (60-115) mg/dL Calcium (8.4-10.2) mg/dL Magnesium (1.6-2.6) mg/dL Total Bilirubin (0.0-1.0) mg/dL Direct Bilirubin (0.0-0.5) mg/dL AST (5-31) U/L ALT (0-31) U/L Alkaline Phosphatase (39-117) U/L Troponin I High Sens (<3.5-17.0) ng/L Total Protein (6.5-8.0) g/dL Albumin (3.5-5.0) g/dL Lipase (8-78) U/L Beta HCG, Quant mIU/mL Salicylates (15-30) mg/dL Acetaminophen (<30) mcg/mL Round [place] < 0.10 L (0.60-1.20) mmol/L Ethyl Alcohol mg/dL COVID-19 ([facility]) (Negative) COVID-19 Clin Com Discharge Plan Discharge Clinical Impression: Suicide attempt Patient Disposition: Still a Patient Prescriptions: No Action ferrous sulfate 324 mg (65 mg iron) Tablet,Delayed Release (Dr/Ec) 324 mg PO BIDWM 30 Days Qty: 60 0RF prazosin 1 mg Capsule 1 mg PO BEDTIME 30 Days Qty: 30 0RF Protocol: Hold for SBP< HOLD for SBP < : 90 hydroxyzine HCl 50 mg Tablet 50 mg PO BID PRN (Reason: Anxiety) 30 Days Qty: 60 0RF naltrexone 50 mg Tablet 25 mg PO DAILY 30 Days Qty: 15 0RF trazodone 50 mg Tablet 50 mg PO BEDTIME PRN (Reason: Insomnia) 30 Days Qty: 30 0RF docosanol [Abreva] 10 % Cream 1 appl topical 5XD PRN (Reason: fever blister) 30 Days Qty: 2 0RF Protocol: Apply to: Apply to: lower lip ascorbic acid (vitamin C) 250 mg Tablet 250 mg PO BIDWM 30 Days Qty: 60 0RF thiamine HCl (vitamin B1) 100 mg Tablet 100 mg PO DAILY 30 Days Qty: 30 0RF pantoprazole 40 mg Tablet,Delayed Release (Dr/Ec) 40 mg PO DAILY 30 Days Qty: 30 0RF folic acid 1 mg tablet 1 mg PO DAILY 30 Days Qty: 30 0RF lithium carbonate 300 mg tablet extended release 600 mg PO BEDTIME 0RF sertraline 25 mg tablet 1 tab PO DAILY 0RF melatonin 5 mg Tablet 5 mg PO BEDTIME PRN (Reason: Insomnia) 0RF
[2021-09-29] MEDS: 0.9 % Sodium Chloride 1,000 ML 999 ML IVCONT (22:05)
[2021-09-29 22:07] LABS: MANUAL DIFF FLAG NO
[2021-09-29 22:09] LABS: Basophils Percent Auto 0.4 % (0-2); Eosinophils Absolute Auto 0.1 X10*3/uL (0.0-0.4); Eosinophils Percent Auto 1.8 % (0-4); Imm Gran Abs Auto 0.01 X10*3/uL (0.00-0.03); Imm Gran Pct Auto 0.2 % (0.0-0.4); Lymphocytes Absolute Auto 1.9 X10*3/uL (1.2-4.9); Lymphocytes Percent Auto 42.7 % (20-40); Mean Corpuscular Hemoglobin 20.6 pg (27.0-33.0); Mean Corpuscular Volume 68.6 fL (80.0-98.0); Mean Platelet Volume 9.4 fL (9.4-12.3); Monocytes Absolute Auto 0.3 X10*3/uL (0.1-1.2); Monocytes Percent Auto 5.8 % (2-11); Neutrophils Absolute Auto 2.2 x10*3/uL (2.0-8.3); Neutrophils Percent Auto 49.1 % (45-73); Platelet Count 184 X10*3/uL (160-400); Red Blood Count 4.37 X10*6/uL (4.20-5.50); Red Cell Distribution Width 18.1 % (11.0-16.0); White Blood Count 4.5 X10*3/uL (4.8-10.8)
[2021-09-29 22:11] VITALS: BP 98/65; PULSE 79; RESP 17; O2SAT 100
[2021-09-29 22:11] LABS: Venous Blood Gas Refer to POC result
[2021-09-29] MEDS: Prochlorperazine Edisylate 10 MG/2 ML VIAL 5 MG IVPUSH (22:11)
[2021-09-29 22:12] LABS: VBG HCO3 17 mmol/L (22-26); VBG pCO2 27 mmHg; VBG pO2 90 mmHg
--- NOTE | 2021-09-29 22:18 | PC.NURSE ---
Patient resting in bed, awake and alert X3, drowsy. 1:1 sitter at bedside. Patient denies SI at this time. VSS. Will monitor closely.
[2021-09-29 22:21] LABS: Ethanol 313 mg/dL; Lithium < 0.10 mmol/L (0.60-1.20)
[2021-09-29 22:25] LABS: COVID-19 Test Negative (Negative)
[2021-09-29 22:26] LABS: Alanine Aminotransferase 13 U/L (0-31); Alkaline Phosphatase 109 U/L (39-117); Anion Gap 16 (12-20); Aspartate Amino Transferase 27 U/L (5-31); Bilirubin Direct < 0.2 mg/dL (0.0-0.5); Bilirubin Total 0.2 mg/dL (0.0-1.0); Blood Urea Nitrogen 12 mg/dL (9-16); Calcium 8.9 mg/dL (8.4-10.2); Carbon Dioxide 20 mmol/L (22-29); Chloride 112 mmol/L (96-108); Creatinine Clr Calc Pharmacy 100.9; Estimated Glomerular Filt Rate > 60; Glucose Random 131 mg/dL (60-115); Lipase 23 U/L (8-78); Magnesium 2.3 mg/dL (1.6-2.6); Potassium 3.7 mmol/L (3.3-5.1); Sodium 144 mmol/L (135-145); Total Protein 7.9 g/dL (6.5-8.0)
[2021-09-29 22:28] LABS: Troponin-I High Sensitivity < 3.5 ng/L (<3.5-17.0)
[2021-09-29 22:28] LABS: Acetaminophen LAB < 1 mcg/mL (<30); Salicylate < 5.0 mg/dL (15-30)
[2021-09-29 22:30] LABS: HCG Quantitative < 2 mIU/mL
--- NOTE | 2021-09-29 22:30 | PC.NURSE ---
Addendum entered by Carmelina Elizondo RN 09/30/21 00:22: 00:22 Spoke with Shivani at Poison control, will replace potassium. See Dr Hernandez orders. Will monitor. Original Note: Called Poison control, recommendations given to Dr Hernandez. Will repeat EKG after 2 hours. Will monitor closely.
[2021-09-29 22:35] LABS: INTERNATIONAL NORM RATIO 1.1 (0.9-1.1); Prothrombin Time 12.4 SEC (9.9-13.0)
[2021-09-29 23:34] VITALS: BP 93/60; PULSE 80; RESP 20; TEMP 36.6; O2SAT 100
--- NOTE | 2021-09-30 | ECG_ITS ---
Test Reason : med clearance Blood Pressure : / mmHG Vent. Rate : 069 BPM Atrial Rate : 069 BPM P-R Int : 146 ms QRS Dur : 076 ms QT Int : 432 ms P-R-T Axes : 066 029 029 degrees QTc Int : 462 ms Normal sinus rhythm Normal ECG When compared with ECG of 30-SEP-2021 05:21, No significant change was found Referred By: Aurora Velazquez Electronically Signed By:LAURA GUARDADO MD
--- NOTE | 2021-09-30 00:37 | PC.NURSE ---
Report given to DONNA Devi in ED pod. VSS. 1:1 sitter remains at bedside.
[2021-09-30] MEDS: Potassium Chloride Packet 20 MEQ PACKET 40 MEQ PO (01:12)
--- NOTE | 2021-09-30 05:18 | ECG_ITS ---
Test Reason : REPEAT Blood Pressure : / mmHG Vent. Rate : 081 BPM Atrial Rate : 081 BPM P-R Int : 142 ms QRS Dur : 086 ms QT Int : 426 ms P-R-T Axes : 072 038 031 degrees QTc Int : 494 ms Normal sinus rhythm Prolonged QT Abnormal ECG When compared with ECG of 29-SEP-2021 23:23, Nonspecific T wave abnormality no longer evident in Lateral leads Referred By: Lakeisha Hernandez Electronically Signed By:LAURA GUARDADO MD
[2021-09-30 05:59] LABS: Anion Gap 13 (12-20); Blood Urea Nitrogen 12 mg/dL (9-16); Calcium 8.4 mg/dL (8.4-10.2); Carbon Dioxide 20 mmol/L (22-29); Chloride 113 mmol/L (96-108); Estimated Glomerular Filt Rate > 60; Glucose Random 95 mg/dL (60-115); Potassium 4.1 mmol/L (3.3-5.1); Sodium 142 mmol/L (135-145)
--- NOTE | 2021-09-30 06:06 | PC.NURSE ---
Poison control called updated ekg and lab results, patient cleared by poison control, patient slept through the night, medication compliant, med rec completed/pending provider's approval, [facility] referral completed/confirmed/pending ETA, behavior appropriate and non concerning, vss, will continue to monitor.
[2021-09-30 07:34] LABS: Appearance Urine CLEAR; Color Urine YELLOW; Glucose Urine UA NEG (NEG); Leukocyte Esterase Urine NEG (NEG); Nitrite Urine NEG (NEG); PH 5.5 (5.0-8.0); Specific Gravity - Urine >= 1.030 (1.005-1.025); Urine Blood NEG (NEG); Urine Ketones 5 MG/DL (NEG); Urine Protein NEG (NEG-TRACE)
--- NOTE | 2021-09-30 07:50 | PC.NURSE ---
patient appears to remain asleep at present respirations are even and unlabored patient appears in no distress
[2021-09-30 07:51] LABS: Amphetamine Screen Urine Not Detected (Not Detect); Barbiturates, Urine Not Detected (Not Detect); Benzodiazepines Screen Urine Not Detected (Not Detect); Cannabinoid Screen Urine POSITIVE (Not Detect); Cocaine Screen Urine Not Detected (Not Detect); Fentanyl, urine Not Detected (Not Detect); Opiate Screen Urine Not Detected (Not Detect); Phencyclidine Screen Urine Not Detected (Not Detect)
[2021-09-30 08:58] VITALS: RESP 16
--- NOTE | 2021-09-30 09:59 | PHA.MEDREC ---
Pharmacy Consult ? Medication Reconciliation Pharmacy has reviewed the medication reconciliation completed by kim. Patient has no recent fill history for Pantoprazole, Oxycodone-APAP, and trazodone so they were removed from home medication list. The rest of medication not on claim history are OTC medications. Eva Christensen, PharmD
--- NOTE | 2021-09-30 10:54 | MHC.CARE ---
1030 Call from patient's sister, Mari [phone], who explained that the family has petitioned for a Section 35. By her report, patient's functioning has significantly declined in the last year and they are very concerned about her alcohol use and her mental health. The warrant is active for five days and they would be able to extend it if she is admitted here. Xochilt Chavez, court social service coordinator [phone] would like to be called with disposition.
[2021-09-30] MEDS: LORazepam 1 MG TABLET 2 MG PO ×2 (12:21→21:40)
[2021-09-30] MEDS: Sertraline HCL 25 MG TABLET PO (12:40)
[2021-09-30] MEDS: Naltrexone HCl 50 MG TABLET 25 MG PO (12:40)
--- NOTE | 2021-09-30 12:45 | PC.NURSE ---
client reports to t/w about recent history of insomnia and nightmares.
[2021-09-30 13:09] VITALS: BP 140/88; PULSE 92; RESP 18; O2SAT 99
--- NOTE | 2021-09-30 14:47 | PC.NURSE ---
Individual OT tx completed this date. Review of coping mechanisms completed pt engages in deep breathing techniques as well as utilization of sensory tool with focus on decreasing intrusive thoughts as well as anxiety. Pt reports techniques are effective.
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
[2021-09-30 18:19] VITALS: BP 131/86; PULSE 84; RESP 16; O2SAT 98
[2021-09-30] MEDS: LORazepam 1 MG TABLET PO (18:27)
--- NOTE | 2021-09-30 19:47 | MHC.CARE ---
Pt has been accepted to for admission. Auth#[id number] approved by Kiko Lyons for 3 days.
[2021-09-30 20:50] LABS: Cholesterol 192 mg/dL; HDL Cholesterol 68 mg/dL; LDL Cholesterol Calculated 104 mg/dl; Triglycerides 102 mg/dL
[2021-09-30 21:40] VITALS: BP 132/89; PULSE 70; RESP 16; O2SAT 100
[2021-09-30] MEDS: Melatonin 3 MG TABLET 6 MG PO (21:41)
[2021-09-30] MEDS: Prazosin HCL 1 MG CAPSULE PO (21:42)
[2021-09-30] MEDS: Lithium Carbonate ER 300 MG TABLET.ER 600 MG PO (21:42)
[2021-09-30] MEDS: hydrOXYzine HCL 50 MG TABLET PO (21:42)
[2021-09-30] MEDS: traZODone HCL 100 MG TABLET PO (21:43)
[2021-09-30 23:50] VITALS: BP 130/80; PULSE 84; RESP 18; TEMP 36.6; O2SAT 99
--- NOTE | 2021-10-01 00:21 | PC.ADMIT ---
Giulia is a 46yoF admitted to [facility] ED s/p overdose on unknown amount of hydroxyzine while intoxicated on alcohol. She reports this was a suicide attempt and has been depressed lately in the setting of losing her job and other psychosocial stressors. She feels regretful of the attempt and feels she discharged too soon from her last admission. She reports drinking 2-40oz beers and 10 nips of vodka daily for about 3 years. She would like to establish outpatient therapy and a medication prescriber and she is motivated for sobriety. She endorses passive SI but denies plan or intent, denies HI/AH/VH/SIB.
[2021-10-01 05:28] LABS: Estimated Average Glucose 111 mg/dL; Hemoglobin A1c % 5.5 %
[2021-10-01 06:00] VITALS: BP 102/52; PULSE 60; RESP 16; TEMP 36.6; O2SAT 99
[2021-10-01 06:05] LABS: Folate 12.2 ng/mL (> or = 4.0); Vitamin B12 290 pg/mL (200-900)
[2021-10-01] MEDS: Omeprazole 20 MG CAPSULE.DR PO (06:14)
[2021-10-01 08:30] VITALS: BP 120/70; PULSE 92; RESP 16; TEMP 36.2; O2SAT 99
[2021-10-01] MEDS: Naltrexone HCl 50 MG TABLET 25 MG PO (08:31)
[2021-10-01] MEDS: Sertraline HCL 25 MG TABLET PO (08:31)
[2021-10-01] MEDS: Ferrous Sulfate 324 MG TABLET.DR PO ×2 (08:31→16:28)
[2021-10-01] MEDS: Folic Acid 1 MG TABLET PO (08:32)
[2021-10-01] MEDS: Thiamine HCL 100 MG TABLET 200 MG PO ×2 (08:32→08:54)
[2021-10-01] MEDS: Acetaminophen 325 MG TABLET 650 MG PO ×2 (08:53→16:35)
[2021-10-01] MEDS: hydrOXYzine HCL 25 MG TABLET PO (08:58)
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
[2021-10-01 09:13] LABS: Estimated Average Glucose 111 mg/dL; Hemoglobin A1c % 5.5 %
[2021-10-01 09:28] LABS: Cholesterol 220 mg/dL; HDL Cholesterol 69 mg/dL; LDL Cholesterol Calculated 113 mg/dl; Triglycerides 190 mg/dL
[2021-10-01 09:51] LABS: Free T4 (Free Thyroxine) 0.93 ng/dL (0.71-1.85); Thyroid Stimulating Hormone 1.56 uIU/mL (0.32-4.0)
[2021-10-01 10:01] LABS: Folate 17.1 ng/mL (> or = 4.0); Vitamin B12 335 pg/mL (200-900)
[2021-10-01] MEDS: Ascorbic Acid 250 MG TABLET PO ×2 (12:14→16:29)
[2021-10-01] MEDS: LORazepam 1 MG TABLET PO ×3 (12:18→16:29)
--- NOTE | 2021-10-01 15:41 | PC.NURSE ---
Patient observed to have visible shakes, tremor. Reports body felt numb, fingers scrunching, biting my lip . I felt scared . VSS 97.6, 141/79, 82HR, 20RR, 100%RA. Aurora Velazquez APRN notified, 1mg Ativan ordered and administered. Continue to monitor for withdrawal sx.
--- NOTE | 2021-10-01 16:14 | PC.NURSE ---
Patient submitted 3 day note 1555.
[2021-10-01 17:35] LABS: Lithium 0.18 mmol/L (0.60-1.20)
[2021-10-01] MEDS: LORazepam 1 MG TABLET 2 MG PO (20:28)
[2021-10-01 20:30] VITALS: BP 148/83; PULSE 75; TEMP 36.6; O2SAT 100
[2021-10-01 21:19] VITALS: BP 136/84; PULSE 65; O2SAT 100
[2021-10-01] MEDS: traZODone HCL 100 MG TABLET PO (21:21)
[2021-10-01] MEDS: Lithium Carbonate ER 300 MG TABLET.ER 600 MG PO (21:21)
[2021-10-01] MEDS: Prazosin HCL 1 MG CAPSULE PO (21:21)
[2021-10-02] MEDS: Acetaminophen 325 MG TABLET 650 MG PO ×2 (05:28→16:54)
[2021-10-02] MEDS: Omeprazole 20 MG CAPSULE.DR PO (05:28)
[2021-10-02] MEDS: LORazepam 1 MG TABLET PO ×3 (05:29→17:52)
[2021-10-02] MEDS: Ascorbic Acid 250 MG TABLET PO ×2 (08:59→16:55)
[2021-10-02] MEDS: Folic Acid 1 MG TABLET PO (08:59)
[2021-10-02] MEDS: Sertraline HCL 50 MG TABLET PO (08:59)
[2021-10-02 09:00] VITALS: BP 117/72; PULSE 93; RESP 16; TEMP 36.8; O2SAT 100
[2021-10-02] MEDS: Naltrexone HCl 50 MG TABLET PO (09:00)
[2021-10-02] MEDS: Ferrous Sulfate 324 MG TABLET.DR PO ×2 (09:01→16:55)
--- NOTE | 2021-10-02 09:23 | HO.PSYCHPN ---
Subjective Subjective Date of Service: 10/02/21 Reason For Visit: AUD, SI, Depression Subjective Notes: Conditional Voluntary and 3 Day Interim History: Pt reports sleeping better. She reports feeling less depressed. She signed 3 day notice despite reporting she was interested in treatment and wanting to get better. She denies SI/HI. Minimizing extend of alcohol use and suspect some degree of craving has something to do with her signing 3 day. She reports is supportive, she is upset with her sister. No GI side effects with higher dose of sertraline. continue on CIWA- discussed harm reduction in that continue taking thiamine, naltrexon Medication Compliance: Yes Review of Systems Review of Systems Constitutional : Denies fever chills ENT/Mouth : No Hearing loss, No Ear Pain, No Nasal Congestion, No Sinus Pain, No Hoarseness, No sore throat, No Rhinorrhea, No Swallowing Difficulty Eyes: No Eye Pain, No Swelling, No Redness, No Foreign Body, No Discharge, No Vision Changes Cardiovascular : No Chest Pain, No SOB, No Dyspnea on Exertion, No Orthopnea, No Edema, No Palpitations Respiratory : No Cough, No Sputum, No Wheezing, No Smoke Exposure, No Dyspnea Gastrointestinal : Complaining of nausea, No Vomiting, No Diarrhea, No Constipation, mild diffuse abdominal Pain/cramping, No Hematochezia, No Melena Genitourinary : no irregular bleeding, No Dysuria, No Urinary Frequency, No Hematuria, No Urinary Incontinence, No Urgency, No Flank Pain, No Urinary Flow Changes, No Hesitancy Musculoskeletal : No joint pain, No Myalgias, No Joint Swelling Skin : No Skin Lesions, No rash Neuro : No Weakness, No Numbness, No Paresthesias, No Loss of Consciousness, No Dizziness, No Headache Psych : Complaining of anxiety, depression, suicide attempt, no homicidal ideation Heme/Lymph: No Bruising, No Bleeding,No Lymphadenopathy Endocrine : No Polyuria, No Polydipsia, No Temperature Intolerance Constitutional: Reports fatigue and Reports poor appetite Eyes: Reports no additional eye complaints Cardiovascular: Denies chest pain and Denies dyspnea Respiratory: Denies dyspnea Gastrointestinal: Denies constipation, Denies diarrhea and Denies hematemesis Endocrine: Reports fatigue Mental Status Exam Mental Status Exam Narrative: Appearance: wearing hospital gown, fair hygiene in NAD Behavior:cooperative psychomotor: no agitation or retardation noted Speech: clear, normal rate/rhythm, volume, spontaneous Thought process:linear Thought content: no signs of psychosis, depressed, burden to family Mood: depressed Affect: blunted SI:denies HI:none VH/AH:none Delusions:none Insight/judgment:poor x 2. Memory/cog: alert, oriented x 3. grossly intact to conversational testing. Diagnostics Vital Signs (24Hr): Vital Signs - 24 hr 10/02/21 19:00 10/03/21 08:45 Temperature 97.7 F 97.8 F Pulse Rate 79 98 Respiratory Rate 20 16 Blood Pressure 117/81 121/75 Pulse Oximetry 100 99 BMI result Body Mass Index 26.5 Labs Results: 09/29/21 22:00 09/30/21 05:37 Labs: Laboratory Results - last 48 hr 10/01/21 10/01/21 10/01/21 08:41 08:41 17:16 Magnesium 2.0 Triglycerides 190 Cholesterol 220 LDL Cholesterol, Calc 113 HDL Cholesterol 69 Vitamin B12 335 Folate 17.1 TSH 1.56 Free T4 0.93 [place] 0.18 L Medications Medications Current Medications Acetaminophen (Acetaminophen 325 Mg Tablet) 650 mg PO Q6H PRN PRN Reason: Headache/Pain Mild Scale (1-3) Last Admin: 10/02/21 16:54 Dose: 650 mg Documented by: Al Hydroxide/Mg Hydroxide (Magnesium Hydrox/Alum Hydrox 30 Ml Oral.Susp) 30 ml PO Q6H PRN PRN Reason: Heartburn/Nausea Ascorbic Acid (Ascorbic Acid 250 Mg Tablet) 250 mg PO BIDWM [facility] Last Admin: 10/03/21 08:31 Dose: 250 mg Documented by: Docosanol (Docosanol 10 % Cream 2 Gm Tube) 1 appl TOPICAL 5XD PRN; Protocol PRN Reason: fever blister Ferrous Sulfate (Ferrous Sulfate 324 Mg Tablet.) 324 mg PO BIDWM [facility] Last Admin: 10/03/21 08:32 Dose: 324 mg Documented by: Folic Acid (Folic Acid 1 Mg Tablet) 1 mg PO DAILY [facility] Last Admin: 10/03/21 08:32 Dose: 1 mg Documented by: Hydroxyzine HCl (Hydroxyzine Hcl 50 Mg Tablet) 50 mg PO BID PRN PRN Reason: Anxiety Last Admin: 09/30/21 21:42 Dose: 50 mg Documented by: Hydroxyzine HCl (Hydroxyzine Hcl 25 Mg Tablet) 25 mg PO Q6H PRN PRN Reason: Anxiety Last Admin: 10/01/21 08:58 Dose: 25 mg Documented by: [place] Carbonate ([place] Carbonate Er 300 Mg Tablet.Er) 600 mg PO BEDTIME [facility] Last Admin: 10/02/21 21:43 Dose: 600 mg Documented by: Lorazepam (Lorazepam 1 Mg Tablet) 2 mg PO Q4H PRN PRN Reason: ciwa 12-16 Last Admin: 10/01/21 20:28 Dose: 2 mg Documented by: Lorazepam (Lorazepam 1 Mg Tablet) 1 mg PO Q4H PRN PRN Reason: ciwa 8-12 Last Admin: 10/03/21 08:30 Dose: 1 mg Documented by: Magnesium Hydroxide (Milk Of Magnesia 30 Ml Oral.Susp) 30 ml PO DAILY PRN PRN Reason: Constipation Melatonin (Melatonin 3 Mg Tablet) 6 mg PO BEDTIME PRN PRN Reason: Insomnia Last Admin: 09/30/21 21:41 Dose: 6 mg Documented by: Naltrexone HCl (Naltrexone Hcl 50 Mg Tablet) 50 mg PO DAILY [facility] Last Admin: 10/03/21 08:31 Dose: 50 mg Documented by: Omeprazole (Omeprazole 20 Mg Capsule.Dr) 20 mg PO DAILY@0630 [facility] Last Admin: 10/03/21 06:26 Dose: 20 mg Documented by: Prazosin HCl (Prazosin Hcl 1 Mg Capsule) 1 mg PO BEDTIME [facility]; Protocol Last Admin: 10/02/21 21:43 Dose: 1 mg Documented by: Sertraline HCl (Sertraline Hcl 50 Mg Tablet) 50 mg PO DAILY [facility] Last Admin: 10/03/21 08:32 Dose: 50 mg Documented by: Thiamine HCl (Thiamine Hcl 100 Mg Tablet) 200 mg PO DAILY [facility] Last Admin: 10/03/21 08:30 Dose: 200 mg Documented by: Trazodone HCl (Trazodone Hcl 100 Mg Tablet) 100 mg PO BEDTIME [facility] Last Admin: 10/02/21 21:43 Dose: 100 mg Documented by: Trazodone HCl (Trazodone Hcl 100 Mg Tablet) 100 mg PO BEDTIME PRN PRN Reason: Insomnia Allergies Allergies Allergy/AdvReac Type Severity Reaction Status Date / Time No Known Allergies Allergy Verified 09/29/21 21:48 Assessment & Plan Assessment & Plan (1) Bipolar 1 disorder with moderate dulce maria: Status: Acute Code(s): F31.12 - Bipolar disorder, current episode manic without psychotic features, moderate (2) Chronic pancreatitis: Status: Acute Code(s): K86.1 - Other chronic pancreatitis (3) Iron deficiency anemia: Status: Acute Code(s): D50.9 - Iron deficiency anemia, unspecified (4) Chronic post-traumatic stress disorder (PTSD): Status: Acute Code(s): F43.12 - Post-traumatic stress disorder, chronic (5) Bipolar 1 disorder, depressed, moderate: Status: Acute Code(s): F31.32 - Bipolar disorder, current episode depressed, moderate Plan Ms. Dunbar is a 46 year-old woman with hx of Bipolar disorder alcohol use disorder who brought to [facility] after her sister called 911 due to pt reporting intentional OD on hydroxyzine with intent to end her life. In the ED her BAL 313, utox positive for cannabinoids. Qtc prolongation noted on series of EKG- suspected related to hydroxyzine OD, which has not resolved. No electrolyte imbalances. We discussed risks, benefits and alternative treatment options. Pt agrees to increase sertraline to 50mg po daily, increase naltrexon to 50mg po daily, continue lithium. PLAN 1. Admit to M3, CV, 15 minutes checks for safety 2. Increase sertraline to 50mg po daily for depression, increase naltrexon to 50mg po daily for alcohol cravings, continue lithium for mood 3. Obtain collateral information 4. Aftercare planning. I spent _25 minutes with the patient and/or on the patient floor today, greater than?50% of which was spent counseling/coordinating care. Reason for contiued inpatient stay Substantial Risk for: harm to self
[2021-10-02 10:00] VITALS: BMI 26.5
[2021-10-02 19:00] VITALS: BP 117/81; PULSE 79; RESP 20; TEMP 36.5; O2SAT 100
[2021-10-02] MEDS: Prazosin HCL 1 MG CAPSULE PO (21:43)
[2021-10-02] MEDS: traZODone HCL 100 MG TABLET PO (21:43)
[2021-10-02] MEDS: Lithium Carbonate ER 300 MG TABLET.ER 600 MG PO (21:43)
[2021-10-03] MEDS: Omeprazole 20 MG CAPSULE.DR PO (06:26)
[2021-10-03] MEDS: Thiamine HCL 100 MG TABLET 200 MG PO (08:30)
[2021-10-03] MEDS: LORazepam 1 MG TABLET PO ×3 (08:30→20:29)
[2021-10-03] MEDS: Ascorbic Acid 250 MG TABLET PO ×2 (08:31→16:30)
[2021-10-03] MEDS: Naltrexone HCl 50 MG TABLET PO (08:31)
[2021-10-03] MEDS: Folic Acid 1 MG TABLET PO (08:32)
[2021-10-03] MEDS: Ferrous Sulfate 324 MG TABLET.DR PO ×2 (08:32→16:29)
[2021-10-03] MEDS: Sertraline HCL 50 MG TABLET PO (08:32)
[2021-10-03 08:45] VITALS: BP 121/75; PULSE 98; RESP 16; TEMP 36.6; O2SAT 99
--- NOTE | 2021-10-03 09:57 | MHC.RECOVRN ---
Met with pt after consult placed to Addiction Medicine to discuss Vivitrol and alcohol use. Prior to admission, pt had been drinking 2 40 oz beers daily as well as a sleeve of vodka. Currently receiving Ativan for withdrawal symptoms. Pt reports initiating naltrexone while here, denies any concerns or reactions regarding the medication. Pt has been on naltrexone and Vivitrol in the past and was able to maintain recovery for about 6 months last year. Pt plans to receive Vivitrol once discharged from [facility]. Pt would like to return to clinic in [place] as it was closer to her house as opposed to the [facility]. Pt lives with who is supportive. Discussed other recovery supports and resources, educated pt regarding CSS level of care. Denies questions or concerns at this time, encouraged to reach out to t/w if they arise. Discussed with Tori Weathers APRN.
[2021-10-03] MEDS: Magnesium Hydrox/Alum Hydrox 30 ML ORAL.SUSP PO (10:57)
--- NOTE | 2021-10-03 12:30 | P.PNPSI_ITS ---
Subjective Subjective Date of Service: 10/03/21 Reason For Visit: AUD, SI, Depression Subjective Notes: Conditional Voluntary and 3 Day Interim History: Pt continues to report depressed mood, passive SI. Feels like she is going through a lot and tired to deal with everything. Pt reports craving alcohol, when feeling more depressed. She reports fair sleep. Some nausea and vomiting this morning. no blood noted. No VH/AH. VS- BP wnl. SBP<150, DBP<90, HR<100. Medication Compliance: Yes Side effects from medications: No Review of Systems Review of Systems Constitutional : Denies fever chills ENT/Mouth : No Hearing loss, No Ear Pain, No Nasal Congestion, No Sinus Pain, No Hoarseness, No sore throat, No Rhinorrhea, No Swallowing Difficulty Eyes: No Eye Pain, No Swelling, No Redness, No Foreign Body, No Discharge, No Vision Changes Cardiovascular : No Chest Pain, No SOB, No Dyspnea on Exertion, No Orthopnea, No Edema, No Palpitations Respiratory : No Cough, No Sputum, No Wheezing, No Smoke Exposure, No Dyspnea Gastrointestinal : Complaining of nausea, No Vomiting, No Diarrhea, No Constipation, mild diffuse abdominal Pain/cramping, No Hematochezia, No Melena Genitourinary : no irregular bleeding, No Dysuria, No Urinary Frequency, No Hematuria, No Urinary Incontinence, No Urgency, No Flank Pain, No Urinary Flow Changes, No Hesitancy Musculoskeletal : No joint pain, No Myalgias, No Joint Swelling Skin : No Skin Lesions, No rash Neuro : No Weakness, No Numbness, No Paresthesias, No Loss of Consciousness, No Dizziness, No Headache Psych : Complaining of anxiety, depression, suicide attempt, no homicidal ideation Heme/Lymph: No Bruising, No Bleeding,No Lymphadenopathy Endocrine : No Polyuria, No Polydipsia, No Temperature Intolerance Constitutional: Reports fatigue and Reports poor appetite Eyes: Reports no additional eye complaints Cardiovascular: Denies chest pain and Denies dyspnea Respiratory: Denies dyspnea Gastrointestinal: Denies constipation, Denies diarrhea and Denies hematemesis Endocrine: Reports fatigue Mental Status Exam Mental Status Exam Narrative: Appearance: wearing hospital gown, fair hygiene in NAD Behavior:cooperative psychomotor: no agitation or retardation noted Speech: clear, normal rate/rhythm, volume, spontaneous Thought process:linear Thought content: no signs of psychosis, depressed, burden to family Mood: depressed Affect: blunted SI:denies HI:none VH/AH:none Delusions:none Insight/judgment:poor x 2. Memory/cog: alert, oriented x 3. grossly intact to conversational testing. Diagnostics Vital Signs (24Hr): Vital Signs - 24 hr 10/02/21 19:00 10/03/21 08:45 Temperature 97.7 F 97.8 F Pulse Rate 79 98 Respiratory Rate 20 16 Blood Pressure 117/81 121/75 Pulse Oximetry 100 99 BMI result Body Mass Index 26.5 Labs Results: 09/29/21 22:00 09/30/21 05:37 Labs: Laboratory Results - last 48 hr 10/01/21 17:16 [place] 0.18 L Medications Medications Current Medications Acetaminophen (Acetaminophen 325 Mg Tablet) 650 mg PO Q6H PRN PRN Reason: Headache/Pain Mild Scale (1-3) Last Admin: 10/02/21 16:54 Dose: 650 mg Documented by: Al Hydroxide/Mg Hydroxide (Magnesium Hydrox/Alum Hydrox 30 Ml Oral.Susp) 30 ml PO Q6H PRN PRN Reason: Heartburn/Nausea Last Admin: 10/03/21 10:57 Dose: 30 ml Documented by: Ascorbic Acid (Ascorbic Acid 250 Mg Tablet) 250 mg PO BIDWM [facility] Last Admin: 10/03/21 08:31 Dose: 250 mg Documented by: Docosanol (Docosanol 10 % Cream 2 Gm Tube) 1 appl TOPICAL 5XD PRN; Protocol PRN Reason: fever blister Ferrous Sulfate (Ferrous Sulfate 324 Mg Tablet.) 324 mg PO BIDWM [facility] Last Admin: 10/03/21 08:32 Dose: 324 mg Documented by: Folic Acid (Folic Acid 1 Mg Tablet) 1 mg PO DAILY [facility] Last Admin: 10/03/21 08:32 Dose: 1 mg Documented by: Hydroxyzine HCl (Hydroxyzine Hcl 50 Mg Tablet) 50 mg PO BID PRN PRN Reason: Anxiety Last Admin: 09/30/21 21:42 Dose: 50 mg Documented by: Hydroxyzine HCl (Hydroxyzine Hcl 25 Mg Tablet) 25 mg PO Q6H PRN PRN Reason: Anxiety Last Admin: 10/01/21 08:58 Dose: 25 mg Documented by: [place] Carbonate ([place] Carbonate Er 300 Mg Tablet.Er) 600 mg PO BEDTIME [facility] Last Admin: 10/02/21 21:43 Dose: 600 mg Documented by: Lorazepam (Lorazepam 1 Mg Tablet) 2 mg PO Q4H PRN PRN Reason: ciwa 12-16 Last Admin: 10/01/21 20:28 Dose: 2 mg Documented by: Lorazepam (Lorazepam 1 Mg Tablet) 1 mg PO Q4H PRN PRN Reason: ciwa 8-12 Last Admin: 10/03/21 08:30 Dose: 1 mg Documented by: Magnesium Hydroxide (Milk Of Magnesia 30 Ml Oral.Susp) 30 ml PO DAILY PRN PRN Reason: Constipation Melatonin (Melatonin 3 Mg Tablet) 6 mg PO BEDTIME PRN PRN Reason: Insomnia Last Admin: 09/30/21 21:41 Dose: 6 mg Documented by: Naltrexone HCl (Naltrexone Hcl 50 Mg Tablet) 50 mg PO DAILY [facility] Last Admin: 10/03/21 08:31 Dose: 50 mg Documented by: Omeprazole (Omeprazole 20 Mg Capsule.Dr) 20 mg PO DAILY@0630 [facility] Last Admin: 10/03/21 06:26 Dose: 20 mg Documented by: Prazosin HCl (Prazosin Hcl 1 Mg Capsule) 1 mg PO BEDTIME [facility]; Protocol Last Admin: 10/02/21 21:43 Dose: 1 mg Documented by: Sertraline HCl (Sertraline Hcl 50 Mg Tablet) 50 mg PO DAILY [facility] Last Admin: 10/03/21 08:32 Dose: 50 mg Documented by: Thiamine HCl (Thiamine Hcl 100 Mg Tablet) 200 mg PO DAILY [facility] Last Admin: 10/03/21 08:30 Dose: 200 mg Documented by: Trazodone HCl (Trazodone Hcl 100 Mg Tablet) 100 mg PO BEDTIME [facility] Last Admin: 10/02/21 21:43 Dose: 100 mg Documented by: Trazodone HCl (Trazodone Hcl 100 Mg Tablet) 100 mg PO BEDTIME PRN PRN Reason: Insomnia Allergies Allergies Allergy/AdvReac Type Severity Reaction Status Date / Time No Known Allergies Allergy Verified 09/29/21 21:48 Assessment & Plan Assessment & Plan (1) Bipolar 1 disorder with moderate dulce maria: Status: Acute Code(s): F31.12 - Bipolar disorder, current episode manic without psychotic features, moderate (2) Chronic pancreatitis: Status: Acute Code(s): K86.1 - Other chronic pancreatitis (3) Iron deficiency anemia: Status: Acute Code(s): D50.9 - Iron deficiency anemia, unspecified (4) Chronic post-traumatic stress disorder (PTSD): Status: Acute Code(s): F43.12 - Post-traumatic stress disorder, chronic (5) Bipolar 1 disorder, depressed, moderate: Status: Acute Code(s): F31.32 - Bipolar disorder, current episode depressed, moderate Plan Ms. Dunbar is a 46 year-old woman with hx of Bipolar disorder alcohol use disorder who [place] [facility] [place] sister called 911 due to pt reporting intentional OD on hydroxyzine with intent to end her life. In the ED her BAL 313, utox positive for cannabinoids. Qtc prolongation noted on series of EKG- suspected related to hydroxyzine OD, which has not resolved. No electrolyte imbalances. We discussed risks, benefits and alternative treatment options. Pt agrees to increase sertraline to 50mg po daily, increase naltrexon to 50mg po daily, continue lithium. PLAN 1. Admit to M3, CV, 15 minutes checks for safety 2. Increase sertraline to 50mg po daily for depression, increase naltrexon to 50mg po daily for alcohol cravings, continue lithium for mood 3. Obtain collateral information 4. Aftercare planning. I spent minutes with the patient and/or on the patient floor today, greater than?50% of which was spent counseling/coordinating care. Reason for contiued inpatient stay Substantial Risk for: harm to self
[2021-10-03] MEDS: Famotidine 20 MG TABLET PO ×2 (14:44→20:28)
[2021-10-03] MEDS: Acetaminophen 325 MG TABLET 650 MG PO ×2 (16:29→22:30)
[2021-10-03 20:23] VITALS: BP 130/78; PULSE 76; RESP 18; TEMP 36.7; O2SAT 99
[2021-10-03] MEDS: Melatonin 3 MG TABLET 6 MG PO (20:29)
[2021-10-03] MEDS: Lithium Carbonate 300 MG CAPSULE 600 MG PO (20:29)
[2021-10-03] MEDS: Prazosin HCL 1 MG CAPSULE PO (20:29)
[2021-10-03] MEDS: traZODone HCL 100 MG TABLET PO ×2 (20:30→22:31)
[2021-10-04 06:00] VITALS: BP 102/67; PULSE 66; RESP 18; TEMP 36.6; O2SAT 100
[2021-10-04] MEDS: Omeprazole 20 MG CAPSULE.DR PO (06:38)
[2021-10-04] MEDS: Sertraline HCL 25 MG TABLET 75 MG PO (08:40)
[2021-10-04] MEDS: Famotidine 20 MG TABLET PO ×2 (08:40→20:48)
[2021-10-04] MEDS: Folic Acid 1 MG TABLET PO (08:40)
[2021-10-04] MEDS: Thiamine HCL 100 MG TABLET 200 MG PO (08:40)
[2021-10-04] MEDS: Ascorbic Acid 250 MG TABLET PO ×2 (08:41→17:50)
[2021-10-04] MEDS: Ferrous Sulfate 324 MG TABLET.DR PO ×2 (08:41→17:50)
[2021-10-04] MEDS: Naltrexone HCl 50 MG TABLET PO (08:41)
--- NOTE | 2021-10-04 14:47 | HO.PSYCHPN ---
Subjective Subjective Date of Service: 10/04/21 Reason For Visit: AUD, SI, Depression Interim History: pt visible in milieu throughout early afternoon. calm and cooperative. feels her medications as they are are perfect. denies SI. describes herself as stable. i'm very positive. feels better today as she made up with her sister. no complaints or requests. per staff, moderate depression and anxiety. doing AA on ipad. isolative to room on eves. feeling uncomfortable on the unit. slept well. requesting DC of CIWA as pt has been here through the period where withdrawal from alcohol would be of most concern. Mental Status Exam Mental Status Exam Narrative: Appearance: wearing street clothes, fair hygiene in NAD Behavior:cooperative psychomotor: no agitation or retardation noted Speech: clear, normal rate/rhythm, volume, spontaneous Thought process:linear Thought content: no signs of psychosis, depressed, burden to family Mood: i'm stable. i'm very positive. Affect: flexible and full range SI:denies HI:none expressed VH/AH:none expressed Delusions:none Insight/judgment:poor x 2. Memory/cog: alert, oriented x 3. grossly intact to conversational testing. Diagnostics Vital Signs (24Hr): Vital Signs - 24 hr 10/03/21 20:23 10/04/21 06:00 Temperature 98.1 F 97.9 F Pulse Rate 76 66 Respiratory Rate 18 18 Blood Pressure 130/78 102/67 Pulse Oximetry 99 100 BMI result Body Mass Index 26.5 Labs Results: 09/29/21 22:00 09/30/21 05:37 Medications Medications Current Medications Acetaminophen (Acetaminophen 325 Mg Tablet) 650 mg PO Q6H PRN PRN Reason: Headache/Pain Mild Scale (1-3) Last Admin: 10/03/21 22:30 Dose: 650 mg Documented by: Al Hydroxide/Mg Hydroxide (Magnesium Hydrox/Alum Hydrox 30 Ml Oral.Susp) 30 ml PO Q6H PRN PRN Reason: Heartburn/Nausea Last Admin: 10/03/21 10:57 Dose: 30 ml Documented by: Ascorbic Acid (Ascorbic Acid 250 Mg Tablet) 250 mg PO BIDWM [facility] Last Admin: 10/04/21 08:41 Dose: 250 mg Documented by: Docosanol (Docosanol 10 % Cream 2 Gm Tube) 1 appl TOPICAL 5XD PRN; Protocol PRN Reason: fever blister Famotidine (Famotidine 20 Mg Tablet) 20 mg PO BID [facility] Last Admin: 10/04/21 08:40 Dose: 20 mg Documented by: Ferrous Sulfate (Ferrous Sulfate 324 Mg Tablet.) 324 mg PO BIDWM [facility] Last Admin: 10/04/21 08:41 Dose: 324 mg Documented by: Folic Acid (Folic Acid 1 Mg Tablet) 1 mg PO DAILY [facility] Last Admin: 10/04/21 08:40 Dose: 1 mg Documented by: Hydroxyzine HCl (Hydroxyzine Hcl 50 Mg Tablet) 50 mg PO BID PRN PRN Reason: Anxiety Last Admin: 09/30/21 21:42 Dose: 50 mg Documented by: Hydroxyzine HCl (Hydroxyzine Hcl 25 Mg Tablet) 25 mg PO Q6H PRN PRN Reason: Anxiety Last Admin: 10/01/21 08:58 Dose: 25 mg Documented by: [place] Carbonate ([place] Carbonate 300 Mg Capsule) 600 mg PO BEDTIME [facility] Last Admin: 10/03/21 20:29 Dose: 600 mg Documented by: Lorazepam (Lorazepam 1 Mg Tablet) 2 mg PO Q4H PRN PRN Reason: ciwa 12-16 Last Admin: 10/01/21 20:28 Dose: 2 mg Documented by: Lorazepam (Lorazepam 1 Mg Tablet) 1 mg PO Q4H PRN PRN Reason: ciwa 8-12 Last Admin: 10/03/21 20:29 Dose: 1 mg Documented by: Magnesium Hydroxide (Milk Of Magnesia 30 Ml Oral.Susp) 30 ml PO DAILY PRN PRN Reason: Constipation Melatonin (Melatonin 3 Mg Tablet) 6 mg PO BEDTIME PRN PRN Reason: Insomnia Last Admin: 10/03/21 20:29 Dose: 6 mg Documented by: Naltrexone HCl (Naltrexone Hcl 50 Mg Tablet) 50 mg PO DAILY [facility] Last Admin: 10/04/21 08:41 Dose: 50 mg Documented by: Omeprazole (Omeprazole 20 Mg Capsule.) 20 mg PO DAILY@0630 [facility] Last Admin: 10/04/21 06:38 Dose: 20 mg Documented by: Prazosin HCl (Prazosin Hcl 1 Mg Capsule) 1 mg PO BEDTIME [facility]; Protocol Last Admin: 10/03/21 20:29 Dose: 1 mg Documented by: Sertraline HCl (Sertraline Hcl 25 Mg Tablet) 75 mg PO DAILY [facility] Last Admin: 10/04/21 08:40 Dose: 75 mg Documented by: Thiamine HCl (Thiamine Hcl 100 Mg Tablet) 200 mg PO DAILY [facility] Last Admin: 10/04/21 08:40 Dose: 200 mg Documented by: Trazodone HCl (Trazodone Hcl 100 Mg Tablet) 100 mg PO BEDTIME [facility] Last Admin: 10/03/21 20:30 Dose: 100 mg Documented by: Trazodone HCl (Trazodone Hcl 100 Mg Tablet) 100 mg PO BEDTIME PRN PRN Reason: Insomnia Last Admin: 10/03/21 22:31 Dose: 100 mg Documented by: Allergies Allergies Allergy/AdvReac Type Severity Reaction Status Date / Time No Known Allergies Allergy Verified 09/29/21 21:48 Assessment & Plan Assessment & Plan (1) Bipolar 1 disorder with moderate dulce maria: Status: Acute Code(s): F31.12 - Bipolar disorder, current episode manic without psychotic features, moderate (2) Chronic pancreatitis: Status: Acute Code(s): K86.1 - Other chronic pancreatitis (3) Iron deficiency anemia: Status: Acute Code(s): D50.9 - Iron deficiency anemia, unspecified (4) Chronic post-traumatic stress disorder (PTSD): Status: Acute Code(s): F43.12 - Post-traumatic stress disorder, chronic (5) Bipolar 1 disorder, depressed, moderate: Status: Acute Code(s): F31.32 - Bipolar disorder, current episode depressed, moderate Plan Ms. Dunbar is a 46 year-old woman with hx of Bipolar disorder alcohol use disorder who brought to [facility] [place] after her sister called 911 due to pt reporting intentional OD on hydroxyzine with intent to end her life. In the ED her BAL 313, utox positive for cannabinoids. Qtc prolongation noted on series of EKG- suspected related to hydroxyzine OD, which has not resolved. No electrolyte imbalances. We discussed risks, benefits and alternative treatment options. Pt agrees to increase sertraline to 50mg po daily, increase naltrexon to 50mg po daily, continue lithium. PLAN 1. Admit to M3, CV, 15 minutes checks for safety 2. Increase sertraline to 75 mg po daily for depression, increase naltrexone to 50 mg po daily for alcohol cravings, continue lithium for mood 3. Obtain collateral information 4. Aftercare planning. I spent ___20___ minutes with the patient and/or on the patient floor today, greater than?50% of which was spent counseling/coordinating care. Reason for contiued inpatient stay Substantial Risk for: harm to self, inability to function and rapid decompensation
[2021-10-04] MEDS: Prazosin HCL 1 MG CAPSULE PO (20:47)
[2021-10-04] MEDS: LORazepam 1 MG TABLET PO (20:48)
[2021-10-04] MEDS: traZODone HCL 100 MG TABLET PO ×2 (20:48)
[2021-10-04] MEDS: Lithium Carbonate 300 MG CAPSULE 600 MG PO (20:48)
[2021-10-04] MEDS: Acetaminophen 325 MG TABLET 650 MG PO (20:49)
[2021-10-04] MEDS: Melatonin 3 MG TABLET 6 MG PO (20:50)
[2021-10-04 20:55] VITALS: BP 141/89; PULSE 69; RESP 16; TEMP 36.7; O2SAT 99
[2021-10-05] MEDS: Acetaminophen 325 MG TABLET 650 MG PO (06:46)
[2021-10-05] MEDS: Omeprazole 20 MG CAPSULE.DR PO (06:46)
[2021-10-05] MEDS: Sertraline HCL 25 MG TABLET 75 MG PO (08:53)
[2021-10-05] MEDS: Ascorbic Acid 250 MG TABLET PO ×2 (08:54→18:07)
[2021-10-05] MEDS: Famotidine 20 MG TABLET PO ×2 (08:54→20:33)
[2021-10-05] MEDS: Ferrous Sulfate 324 MG TABLET.DR PO ×2 (08:55→18:09)
[2021-10-05] MEDS: Folic Acid 1 MG TABLET PO (08:55)
[2021-10-05] MEDS: Naltrexone HCl 50 MG TABLET PO (08:55)
[2021-10-05] MEDS: Thiamine HCL 100 MG TABLET 200 MG PO (08:56)
[2021-10-05] MEDS: LORazepam 1 MG TABLET PO (09:13)
[2021-10-05 09:24] VITALS: BP 110/72; PULSE 76; RESP 20; TEMP 36.4; O2SAT 99
--- NOTE | 2021-10-05 13:39 | HO.PSYCHPN ---
Subjective Subjective Date of Service: 10/05/21 Reason For Visit: AUD, SI, Depression Interim History: pt calm, cooperative. reports she is doing well. reticent to agree to ativan MD david explains rationale. she believes it is extremely helpful for her anxiety. discuss her productive cough and sore throat, meds agreed upon to address. no other complaints or requests. per staff, pt appears anxious. Mental Status Exam Mental Status Exam Narrative: Appearance: wearing street clothes, fair hygiene in NAD Behavior:cooperative psychomotor: no agitation or retardation noted Speech: clear, normal rate/rhythm, volume, spontaneous Thought process:linear Thought content: no signs of psychosis, depressed Mood: not assessed Affect: constricted SI:none expressed HI:none expressed VH/AH:none expressed Diagnostics Vital Signs (24Hr): Vital Signs - 24 hr 10/04/21 20:55 10/05/21 09:24 Temperature 98.1 F 97.6 F Pulse Rate 69 76 Respiratory Rate 16 20 Blood Pressure 141/89 H 110/72 Pulse Oximetry 99 99 BMI result Body Mass Index 26.5 Labs Results: 09/29/21 22:00 09/30/21 05:37 Medications Medications Current Medications Acetaminophen (Acetaminophen 325 Mg Tablet) 650 mg PO Q6H PRN PRN Reason: Headache/Pain Mild Scale (1-3) Last Admin: 10/05/21 06:46 Dose: 650 mg Documented by: Al Hydroxide/Mg Hydroxide (Magnesium Hydrox/Alum Hydrox 30 Ml Oral.Susp) 30 ml PO Q6H PRN PRN Reason: Heartburn/Nausea Last Admin: 10/03/21 10:57 Dose: 30 ml Documented by: Ascorbic Acid (Ascorbic Acid 250 Mg Tablet) 250 mg PO BIDWM [facility] [place] Last Admin: 10/05/21 08:54 Dose: 250 mg Documented by: Docosanol (Docosanol 10 % Cream 2 Gm Tube) 1 appl TOPICAL 5XD PRN; Protocol PRN Reason: fever blister Famotidine (Famotidine 20 Mg Tablet) 20 mg PO BID [facility] [place] Last Admin: 10/05/21 08:54 Dose: 20 mg Documented by: Ferrous Sulfate (Ferrous Sulfate 324 Mg Tablet.) 324 mg PO BIDWM [facility] [place] Last Admin: 10/05/21 08:55 Dose: 324 mg Documented by: Folic Acid (Folic Acid 1 Mg Tablet) 1 mg PO DAILY [facility] [place] Last Admin: 10/05/21 08:55 Dose: 1 mg Documented by: Hydroxyzine HCl (Hydroxyzine Hcl 50 Mg Tablet) 50 mg PO Q6H PRN PRN Reason: Anxiety [place] Carbonate ([place] Carbonate 300 Mg Capsule) 600 mg PO BEDTIME [facility] [place] Last Admin: 10/04/21 20:48 Dose: 600 mg Documented by: Lorazepam (Lorazepam 0.5 Mg Tablet) 0.5 mg PO BID [facility] [place] Hydroxide (Milk Of Magnesia 30 Ml Oral.Susp) 30 ml PO DAILY PRN PRN Reason: Constipation Melatonin (Melatonin 3 Mg Tablet) 6 mg PO BEDTIME PRN PRN Reason: Insomnia Last Admin: 10/04/21 20:50 Dose: 6 mg Documented by: Naltrexone HCl (Naltrexone Hcl 50 Mg Tablet) 50 mg PO DAILY [facility] [place] Last Admin: 10/05/21 08:55 Dose: 50 mg Documented by: Omeprazole (Omeprazole 20 Mg Capsule.Dr) 20 mg PO DAILY@0630 [facility] [place] Last Admin: 10/05/21 06:46 Dose: 20 mg Documented by: Prazosin HCl (Prazosin Hcl 1 Mg Capsule) 1 mg PO BEDTIME [facility] [place]; Protocol Last Admin: 10/04/21 20:47 Dose: 1 mg Documented by: Sertraline HCl (Sertraline Hcl 25 Mg Tablet) 75 mg PO DAILY [facility] [place] Last Admin: 10/05/21 08:53 Dose: 75 mg Documented by: Thiamine HCl (Thiamine Hcl 100 Mg Tablet) 200 mg PO DAILY [facility] Last Admin: 10/05/21 08:56 Dose: 200 mg Documented by: Trazodone HCl (Trazodone Hcl 100 Mg Tablet) 100 mg PO BEDTIME [facility] [place] Last Admin: 10/04/21 20:48 Dose: 100 mg Documented by: Trazodone HCl (Trazodone Hcl 100 Mg Tablet) 100 mg PO BEDTIME PRN PRN Reason: Insomnia Last Admin: 10/04/21 20:48 Dose: 100 mg Documented by: Allergies Allergies Allergy/AdvReac Type Severity Reaction Status Date / Time No Known Allergies Allergy Verified 09/29/21 21:48 Assessment & Plan Assessment & Plan (1) Bipolar 1 disorder with moderate dulce maria: Status: Acute Code(s): F31.12 - Bipolar disorder, current episode manic without psychotic features, moderate (2) Chronic pancreatitis: Status: Acute Code(s): K86.1 - Other chronic pancreatitis (3) Iron deficiency anemia: Status: Resolved Code(s): D50.9 - Iron deficiency anemia, unspecified (4) Chronic post-traumatic stress disorder (PTSD): Status: Acute Code(s): F43.12 - Post-traumatic stress disorder, chronic (5) Bipolar 1 disorder, depressed, moderate: Status: Acute Code(s): F31.32 - Bipolar disorder, current episode depressed, moderate Plan Ms. Dunbar is a 46 year-old woman with hx of Bipolar disorder alcohol use disorder who [place] [facility] [place] her sister called 911 due to pt reporting intentional OD on hydroxyzine with intent to end her life. In the ED her BAL 313, utox positive for cannabinoids. Qtc prolongation noted on series of EKG- suspected related to hydroxyzine OD, which has not resolved. No electrolyte imbalances. We discussed risks, benefits and alternative treatment options. Pt agrees to increase sertraline to 50mg po daily, increase naltrexon to 50mg po daily, continue lithium. PLAN 1. Admit to M3, CV, 15 minutes checks for safety 2. Increase sertraline to 75 mg po daily for depression, increase naltrexone to 50 mg po daily for alcohol cravings, continue lithium for mood 3. Obtain collateral information 4. Aftercare planning. cough syrup and lozenges started 10/05 for productive cough and sore throat. ativan scheduled at 0.5 BID as of 10/05 for taper. I spent ___20___ minutes with the patient and/or on the patient floor today, greater than?50% of which was spent counseling/coordinating care. Reason for contiued inpatient stay Substantial Risk for: inability to function and rapid decompensation
[2021-10-05] MEDS: hydrOXYzine HCL 50 MG TABLET PO (15:21)
[2021-10-05] MEDS: Milk of Magnesia 30 ML ORAL.SUSP PO (19:21)
[2021-10-05 20:30] VITALS: BP 128/73; PULSE 79; RESP 18; TEMP 36.6; O2SAT 98
[2021-10-05] MEDS: Prazosin HCL 1 MG CAPSULE PO (20:33)
[2021-10-05] MEDS: Lithium Carbonate 300 MG CAPSULE 600 MG PO (20:33)
[2021-10-05] MEDS: LORazepam 0.5 MG TABLET PO (20:33)
[2021-10-05] MEDS: traZODone HCL 100 MG TABLET PO ×2 (20:33→21:43)
[2021-10-05] MEDS: Melatonin 3 MG TABLET 6 MG PO (21:43)
[2021-10-06] MEDS: Omeprazole 20 MG CAPSULE.DR PO (05:36)
[2021-10-06] MEDS: hydrOXYzine HCL 50 MG TABLET PO (05:36)
[2021-10-06] MEDS: Magnesium Citrate 300 ML SOLUTION PO (05:44)
[2021-10-06 06:00] VITALS: BP 102/59; PULSE 62; TEMP 36.6; O2SAT 99
[2021-10-06] MEDS: Sertraline HCL 25 MG TABLET 75 MG PO (08:51)
[2021-10-06] MEDS: Naltrexone HCl 50 MG TABLET PO (08:52)
[2021-10-06] MEDS: Ferrous Sulfate 324 MG TABLET.DR PO (08:52)
[2021-10-06] MEDS: Thiamine HCL 100 MG TABLET 200 MG PO (08:52)
[2021-10-06] MEDS: Folic Acid 1 MG TABLET PO (08:52)
[2021-10-06] MEDS: LORazepam 0.5 MG TABLET PO (08:53)
[2021-10-06] MEDS: Ascorbic Acid 250 MG TABLET PO (08:53)
[2021-10-06] MEDS: Famotidine 20 MG TABLET PO (08:53)
--- NOTE | 2021-10-06 09:03 | P.DS_ITS ---
DS: Providers Provider Date of Service: 10/06/21 Date of admission: 09/30/21 22:26 Primary care physician: Unknown Physician DS: Diagnosis Discharge Diagnosis (1) Bipolar 1 disorder with moderate dulce maria: Status: Acute (2) Chronic pancreatitis: Status: Acute (3) Iron deficiency anemia: Status: Resolved (4) Chronic post-traumatic stress disorder (PTSD): Status: Acute (5) Bipolar 1 disorder, depressed, moderate: Status: Acute DS: Medications Discharge Medications Home Medications: Previous Rx's Medication Instructions Recorded ferrous sulfate 324 mg (65 mg 324 mg PO BIDWM 30 Days #60 tab 08/02/21 iron) tablet,delayed release prazosin 1 mg capsule 1 mg PO BEDTIME 30 Days #30 cap 08/02/21 ascorbic acid (vitamin C) 250 mg 250 mg PO BIDWM #60 tab 10/06/21 tablet famotidine 20 mg tablet 20 mg PO BID #60 tab 10/06/21 folic acid 1 mg tablet 1 mg PO DAILY #30 tab 10/06/21 lithium carbonate 600 mg capsule 600 mg PO BEDTIME #30 cap 10/06/21 lorazepam 0.5 mg tablet 0.5 mg PO BID #30 tab 10/06/21 melatonin 3 mg tablet 6 mg PO BEDTIME PRN #60 tab 10/06/21 naltrexone 50 mg tablet 50 mg PO DAILY #30 tab 10/06/21 omeprazole 20 mg capsule,delayed 20 mg PO DAILY@0630 #30 cap 10/06/21 release sertraline 100 mg tablet 100 mg PO DAILY #30 tab 10/06/21 thiamine mononitrate (vit B1) 100 200 mg PO DAILY #60 tab 10/06/21 mg tablet trazodone 150 mg tablet 150 mg PO BEDTIME #30 tab 10/06/21 Mental Status Exam Mental Status Exam Narrative: Appearance: wearing hospital gown, fair hygiene in NAD Behavior:cooperative psychomotor: no agitation or retardation noted Speech: clear, normal rate/rhythm, volume, spontaneous Thought process:linear Thought content: no signs of psychosis, looking forward to be discharge, impro estefani mood Mood: GOOD Affect: brighter non labile, congruent. SI:denies HI:none VH/AH:none Delusions:none Insight/judgment:poor x 2. Memory/cog: alert, oriented x 3. grossly intact to conversational testing. Data Data Completed and Pending Completed studies during hospitalization [Text1]: 09/29/21 09/29/21 09/29/21 22:00 22:00 22:00 WBC 4.5 L RBC 4.37 Hgb 9.0 L Hct 30.0 L MCV 68.6 L MCH 20.6 L MCHC 30.0 L RDW 18.1 H Plt Count 184 D MPV 9.4 Immature Gran % (Auto) 0.2 Neut % (Auto) 49.1 Lymph % (Auto) 42.7 H [place] % (Auto) 5.8 Eos % (Auto) 1.8 Baso % (Auto) 0.4 Lymph # (Auto) 1.9 [place] # (Auto) 0.3 Eos # (Auto) 0.1 Baso # (Auto) 0.0 Abs Immat Gran (auto) 0.01 Absolute Neuts (auto) 2.2 Absolute Nucleated RBC 0.000 Nucleated RBC % (auto) 0.0 PT 12.4 INR 1.1 VBG pH VBG pCO2 VBG pO2 VBG HCO3 VBG O2 Saturation VBG Base Excess Sodium Potassium Chloride Carbon Dioxide Anion Gap BUN Creatinine Estim Creat Clear Calc Estimated GFR Random Glucose Estimat Average Glucose Hemoglobin A1c % Calcium Magnesium Total Bilirubin Direct Bilirubin AST ALT Alkaline Phosphatase Troponin I High Sens < 3.5 Total Protein Albumin Triglycerides Cholesterol LDL Cholesterol, Calc HDL Cholesterol Lipase Vitamin B12 Folate TSH Free T4 Beta HCG, Quant Urine Color Urine Appearance Urine pH Ur Specific [place] Urine Protein Urine Glucose (UA) Urine Ketones Urine Blood Urine Nitrite Ur Leukocyte Esterase Salicylates Urine Opiates Screen Urine Fentanyl Screen Acetaminophen Ur Barbiturates Screen Ur Phencyclidine Scrn Ur Amphetamines Screen U Benzodiazepines Scrn [place] Urine Cocaine Screen U Marijuana (THC) Screen Ethyl Alcohol COVID-19 ([facility]) COVID-19 Clin Com 09/29/21 09/29/21 09/29/21 22:01 22:01 22:01 WBC RBC Hgb Hct MCV MCH MCHC RDW Plt Count MPV Immature Gran % (Auto) Neut % (Auto) Lymph % (Auto) [place] % (Auto) Eos % (Auto) Baso % (Auto) Lymph # (Auto) [place] # (Auto) Eos # (Auto) Baso # (Auto) Abs Immat Gran (auto) Absolute Neuts (auto) Absolute Nucleated RBC Nucleated RBC % (auto) PT INR VBG pH VBG pCO2 VBG pO2 VBG HCO3 VBG O2 Saturation VBG Base Excess Sodium 144 Potassium 3.7 Chloride 112 H Carbon Dioxide 20 L Anion Gap 16 BUN 12 Creatinine 0.77 Estim Creat Clear Calc 100.9 Estimated GFR > 60 Random Glucose 131 H Estimat Average Glucose Hemoglobin A1c % Calcium 8.9 Magnesium 2.3 Total Bilirubin 0.2 Direct Bilirubin < 0.2 AST 27 ALT 13 Alkaline Phosphatase 109 Troponin I High Sens Total Protein 7.9 Albumin 4.0 Triglycerides Cholesterol LDL Cholesterol, Calc HDL Cholesterol Lipase 23 Vitamin B12 Folate TSH Free T4 Beta HCG, Quant < 2 Urine Color Urine Appearance Urine pH Ur Specific [place] Urine Protein Urine Glucose (UA) Urine Ketones Urine Blood Urine Nitrite Ur Leukocyte Esterase Salicylates < 5.0 L Urine Opiates Screen Urine Fentanyl Screen Acetaminophen < 1 Ur Barbiturates Screen Ur Phencyclidine Scrn Ur Amphetamines Screen U Benzodiazepines Scrn [place] Urine Cocaine Screen U Marijuana (THC) Screen Ethyl Alcohol 313 H* COVID-19 ([facility]) Negative COVID-19 Clin Com See Note 09/29/21 09/29/21 09/30/21 22:01 22:04 05:37 WBC RBC Hgb Hct MCV MCH MCHC RDW Plt Count MPV Immature Gran % (Auto) Neut % (Auto) Lymph % (Auto) [place] % (Auto) Eos % (Auto) Baso % (Auto) Lymph # (Auto) [place] # (Auto) Eos # (Auto) Baso # (Auto) Abs Immat Gran (auto) Absolute Neuts (auto) Absolute Nucleated RBC Nucleated RBC % (auto) PT INR VBG pH 7.40 VBG pCO2 27 VBG pO2 90 VBG HCO3 17 L VBG O2 Saturation 94.0 VBG Base Excess -6.0 Sodium 142 Potassium 4.1 Chloride 113 H Carbon Dioxide 20 L Anion Gap 13 BUN 12 Creatinine 0.67 Estim Creat Clear Calc 116.0 Estimated GFR > 60 Random Glucose 95 Estimat Average Glucose Hemoglobin A1c % Calcium 8.4 Magnesium Total Bilirubin Direct Bilirubin AST ALT Alkaline Phosphatase Troponin I High Sens Total Protein Albumin Triglycerides Cholesterol LDL Cholesterol, Calc HDL Cholesterol Lipase Vitamin B12 Folate TSH Free T4 Beta HCG, Quant Urine Color Urine Appearance Urine pH Ur Specific [place] Urine Protein Urine Glucose (UA) Urine Ketones Urine Blood Urine Nitrite Ur Leukocyte Esterase Salicylates Urine Opiates Screen Urine Fentanyl Screen Acetaminophen Ur Barbiturates Screen Ur Phencyclidine Scrn Ur Amphetamines Screen U Benzodiazepines Scrn [place] < 0.10 L Urine Cocaine Screen U Marijuana (THC) Screen Ethyl Alcohol COVID-19 ([facility]) COVID-19 [place] 09/30/21 09/30/21 09/30/21 07:24 07:24 20:29 WBC RBC Hgb Hct MCV MCH MCHC RDW Plt Count MPV Immature Gran % (Auto) Neut % (Auto) Lymph % (Auto) [place] % (Auto) Eos % (Auto) Baso % (Auto) Lymph # (Auto) [place] # (Auto) Eos # (Auto) Baso # (Auto) Abs Immat Gran (auto) Absolute Neuts (auto) Absolute Nucleated RBC Nucleated RBC % (auto) PT INR VBG pH VBG pCO2 VBG pO2 VBG HCO3 VBG O2 Saturation VBG Base Excess Sodium Potassium Chloride Carbon Dioxide Anion Gap BUN Creatinine Estim Creat Clear Calc Estimated GFR Random Glucose Estimat Average Glucose 111 Hemoglobin A1c % 5.5 Calcium Magnesium Total Bilirubin Direct Bilirubin AST ALT Alkaline Phosphatase Troponin I High Sens Total Protein Albumin Triglycerides Cholesterol LDL Cholesterol, Calc HDL Cholesterol Lipase Vitamin B12 Folate TSH Free T4 Beta HCG, Quant Urine Color YELLOW Urine Appearance CLEAR Urine pH 5.5 Ur Specific [place] >= 1.030 H Urine Protein NEG Urine Glucose (UA) NEG Urine Ketones 5 Urine Blood NEG Urine Nitrite NEG Ur Leukocyte Esterase NEG Salicylates Urine Opiates Screen Not Detected Urine Fentanyl Screen Not Detected Acetaminophen Ur Barbiturates Screen Not Detected Ur Phencyclidine Scrn Not Detected Ur Amphetamines Screen Not Detected U Benzodiazepines Scrn Not Detected [place] Urine Cocaine Screen Not Detected U Marijuana (THC) Screen POSITIVE H Ethyl Alcohol COVID-19 ([facility]) COVID-19 [place] 09/30/21 09/30/21 10/01/21 20:29 20:29 08:41 WBC RBC Hgb Hct MCV MCH MCHC RDW Plt Count MPV Immature Gran % (Auto) Neut % (Auto) Lymph % (Auto) [place] % (Auto) Eos % (Auto) Baso % (Auto) Lymph # (Auto) [place] # (Auto) Eos # (Auto) Baso # (Auto) Abs Immat Gran (auto) Absolute Neuts (auto) Absolute Nucleated RBC Nucleated RBC % (auto) PT INR VBG pH VBG pCO2 VBG pO2 VBG HCO3 VBG O2 Saturation VBG Base Excess Sodium Potassium Chloride Carbon Dioxide Anion Gap BUN Creatinine Estim Creat Clear Calc Estimated GFR Random Glucose Estimat Average Glucose 111 Hemoglobin A1c % 5.5 Calcium Magnesium Total Bilirubin Direct Bilirubin AST ALT Alkaline Phosphatase Troponin I High Sens Total Protein Albumin Triglycerides 102 Cholesterol 192 LDL Cholesterol, Calc 104 HDL Cholesterol 68 Lipase Vitamin B12 290 Folate 12.2 TSH Free T4 Beta HCG, Quant Urine Color Urine Appearance Urine pH Ur Specific [place] Urine Protein Urine Glucose (UA) Urine Ketones Urine Blood Urine Nitrite Ur Leukocyte Esterase Salicylates Urine Opiates Screen Urine Fentanyl Screen Acetaminophen Ur Barbiturates Screen Ur Phencyclidine Scrn Ur Amphetamines Screen U Benzodiazepines Scrn [place] Urine Cocaine Screen U Marijuana (THC) Screen Ethyl Alcohol COVID-19 ([facility]) COVID-19 Clin Com 10/01/21 10/01/21 10/01/21 08:41 08:41 17:16 WBC RBC Hgb Hct MCV MCH MCHC RDW Plt Count MPV Immature Gran % (Auto) Neut % (Auto) Lymph % (Auto) [place] % (Auto) Eos % (Auto) Baso % (Auto) Lymph # (Auto) [place] # (Auto) Eos # (Auto) Baso # (Auto) Abs Immat Gran (auto) Absolute Neuts (auto) Absolute Nucleated RBC Nucleated RBC % (auto) PT INR VBG pH VBG pCO2 VBG pO2 VBG HCO3 VBG O2 Saturation VBG Base Excess Sodium Potassium Chloride Carbon Dioxide Anion Gap BUN Creatinine Estim Creat Clear Calc Estimated GFR Random Glucose Estimat Average Glucose Hemoglobin A1c % Calcium Magnesium 2.0 Total Bilirubin Direct Bilirubin AST ALT Alkaline Phosphatase Troponin I High Sens Total Protein Albumin Triglycerides 190 Cholesterol 220 LDL Cholesterol, Calc 113 HDL Cholesterol 69 Lipase Vitamin B12 335 Folate 17.1 TSH 1.56 Free T4 0.93 Beta HCG, Quant Urine Color Urine Appearance Urine pH Ur Specific [place] Urine Protein Urine Glucose (UA) Urine Ketones Urine Blood Urine Nitrite Ur Leukocyte Esterase Salicylates Urine Opiates Screen Urine Fentanyl Screen Acetaminophen Ur Barbiturates Screen Ur Phencyclidine Scrn Ur Amphetamines Screen U Benzodiazepines Scrn [place] 0.18 L Urine Cocaine Screen U Marijuana (THC) Screen Ethyl Alcohol COVID-19 ([facility]KA) COVID-19 Clin Com DS: Summary Hospital Course Hospital Course: Mrs. Dunbar is a 46 year-old woman with hx of Bipolar disorder, alcohol use disorder who was brought to [facility] ED via EMS after her sister called EMS as pt reported intentional OD on hydroxizine with intent to end her life. In the ED, her utox is positive for cannabinoids. BAL 313. In the ED- pt presented with prolonged Qtc initially of 519 on 09/29. Last EKG prior to admission to this unit on 09/30/21, Qtc has normalized at 462. No electrolyte imbalances noted. Ms. Dunbar is known to [facility] through one previous inpatient psychiatric admission on M5 discharge on 07/2021 after treatment for similar presentation, increased d epression, SI in context of ongoing alcohol use disorder. On the unit, Mrs. Dunbar reports she has been feeling more depressed, burden to her family. She reports drinking daily 2 beers of 40onz and several nips during the day. She reports she quickly relapsed on alcohol. She has not been able to go to interviews for jobs, She has been out of work since 11/2020. She reports poor sleep. She denies hx of VH/AH. She continues to endorse depressed mood, anhedonia, guilt/burden to family, suicidal ideation but no current plan. Past Psychiatric History: Inpatient: OP: Huseyin Cobb-prescriber. Suicide attempts: Past medication trials: lithium,? HOSPITAL COURSE On the unit, Ms. Dunbar was admitted on a CV and placed on 15 minutes checks for safety. Pt was tearful regretting discharge from [facility] to be so soon (pt had signed 3 day notice). She endorsed depressed mood, anhedonia but reports she was not thinking about suicide plan or intent. She reports thinks OD in context of being intoxicated. She regretted OD and adamantly denied any plan or intent to hurt herself or others. Mrs. Dunbar was started on [facility] protocol for alcohol use. She did not have any medical complications secondary to withdrawal symptoms. After discussing risks, benefits and alternative treatment option, Mrs. Dunbar agreed to increase sertraline for depression, which she tolerated well and was increased to 100mg po daily. She was continued on naltrexon 50mg po daily. She was also continued on lithium 600mg po qhs. Because of gastric bypass surgery, she does better with medications that are not extended release formulations. Her affect gradually brighten. She reported less symptoms of depression. She denied SI/HI. She signed 3 day notice. She minimized to some extend alcohol use and its effects on her ability to have a stable life, keep a job and maintain relationships with loved ones. Collateral information was gathered from sister and her . No safety concerns at time of discharge reported by family. They agreed that pt presents with brighter affect, improved mood but also acknowledge that continued use of alcohol quickly has detrimental effect on her mood. Family filed section 35 and was picked up by [employer] Police on day of discharge. Status at Discharge Cognitive/behavioral status at discharge: Pt with bright, non labile mood. No SI/HI. No signs of psychosis. Sleeping and eating well. No signs of aggression towards self or others. Limited insight into effects of alcohol use in her life, declines referrals for substance use treatment programs. Functional status at discharge: independent ambulation Overall status at discharge: patient is progressing back to baseline Time Spent with Patient Time attestation: Total time spent providing and/or coordinating discharge services: Discharge Plan Discharge Patient Disposition: Home, Self-Care Discharge Diagnosis: Bipolar Disorder type 1 Alcohol Use disorder Referrals: Maddison Coburn MD [Physician] - 1 Week Discharge Medications: New naltrexone 50 mg Tablet 50 mg PO DAILY Qty: 30 0RF lithium carbonate 600 mg capsule 600 mg PO BEDTIME Qty: 30 0RF lorazepam 0.5 mg Tablet 0.5 mg PO BID Qty: 30 0RF trazodone 150 mg tablet 150 mg PO BEDTIME Qty: 30 0RF melatonin 3 mg Tablet 6 mg PO BEDTIME PRN (Reason: Insomnia) Qty: 60 0RF famotidine 20 mg Tablet 20 mg PO BID Qty: 60 0RF ascorbic acid (vitamin C) 250 mg Tablet 250 mg PO BIDWM Qty: 60 0RF omeprazole 20 mg Capsule,Delayed Release(Dr/Ec) 20 mg PO DAILY@0630 Qty: 30 0RF folic acid 1 mg Tablet 1 mg PO DAILY Qty: 30 0RF thiamine mononitrate (vit B1) 100 mg Tablet 200 mg PO DAILY Qty: 60 0RF sertraline 100 mg tablet 100 mg PO DAILY Qty: 30 0RF Continued ferrous sulfate 324 mg (65 mg iron) Tablet,Delayed Release (Dr/Ec) 324 mg PO BIDWM 30 Days Qty: 60 0RF prazosin 1 mg Capsule 1 mg PO BEDTIME 30 Days Qty: 30 0RF Protocol: Hold for SBP< HOLD for SBP < : 90 Discontinued Vivitrol 380 mg suspension,extended rel recon 380 mg IM Q4W 0RF hydroxyzine HCl 50 mg Tablet 50 mg PO BID PRN (Reason: Anxiety) 30 Days Qty: 60 0RF naltrexone 50 mg Tablet 25 mg PO DAILY 30 Days Qty: 15 0RF docosanol [Abreva] 10 % Cream 1 appl topical 5XD PRN (Reason: fever blister) 30 Days Qty: 2 0RF Protocol: Apply to: Apply to: lower lip ascorbic acid (vitamin C) 250 mg Tablet 250 mg PO BIDWM 30 Days Qty: 60 0RF thiamine HCl (vitamin B1) 100 mg Tablet 100 mg PO DAILY 30 Days Qty: 30 0RF folic acid 1 mg tablet 1 mg PO DAILY 30 Days Qty: 30 0RF lithium carbonate 300 mg tablet extended release 600 mg PO BEDTIME 0RF sertraline 25 mg tablet 1 tab PO DAILY 0RF melatonin 5 mg Tablet 5 mg PO BEDTIME PRN (Reason: Insomnia) 0RF Discharge Orders: Discharge Order (Routine); Ordered 10/06/21 Ordered By: Aurora Velazquez Diet: regular diet Activity on Discharge: As tolerated Stand Alone Forms: Patient Portal Discharge page, Community Support, Substance Abuse Outpt Detox Care Plan Goals: 1. Maintain mood 2. NO SI/HI 3. Continue recovery- naltrexon Health Concerns: 1. Follow up with PCP Plan of Treatment: 1. Take medications as prescribed. 2. Go to nearest ED or call 911 in event of emergency Assessment: Pt with brighter, non labile affect. NO SI/HI. limited insight into need for intensive treatment for alcohol use. Future oriented. No signs of aggression towards self or others.
== END 2021-10-06 09:12 | disposition home or self-care (01) | DRG 753 ==
LOC: HO.ED 09-30 16:55 → HO.PADLT16 09-30 22:35
PROVIDERS: Registered Nurse; Admitting Provider Psychiatry & Neurology Psychiatry; Emergency Provider Emergency Medicine; Visit Provider Social Worker
DX: F31.32 Bipolar disorder, current episode depressed, moderate (principal); R45.851 Suicidal ideations; D50.9 Iron deficiency anemia, unspecified; F10.20 Alcohol dependence, uncomplicated; F43.12 Post-traumatic stress disorder, chronic; K86.1 Other chronic pancreatitis; Y90.8 Blood alcohol level of 240 mg/100 ml or more; Z91.51 Personal history of suicidal behavior; Z20.822 Contact with and (suspected) exposure to COVID-19; Z98.84 Bariatric surgery status; Z79.899 Other long term (current) drug therapy
CPT/HCPCS: 36415; 80048; 80061; 80076; 80143; 80178; 80179; 80307; 81003; 82077; 82607; 82746; 82803; 83036; 83690; 83735; 84439; 84443; 84484; 84702; 85025; 85610; 87635; 93005; 96360; 99285

== ENCOUNTER → 2022-01-15 15:10 | Outpatient (BNVA) | payer MEDICAID, SELFPAY | PROVIDERS: PCP Internal Medicine; Visit Provider Nurse Practitioner Psychiatric/Mental Health | DX: F10.20 Alcohol dependence, uncomplicated (principal); Z79.891 Long term (current) use of opiate analgesic | CPT/HCPCS: 80305; 81025; 99212 ==

== ENCOUNTER 2022-01-20 17:11 | Outpatient (REF) | payer MEDICAID, SELFPAY ==
[2022-01-20 18:24] LABS: Alanine Aminotransferase 18 U/L (0-31); Aspartate Amino Transferase 22 U/L (5-31); Blood Urea Nitrogen 14 mg/dL (9-16); Estimated Glomerular Filt Rate > 60
[2022-01-21 04:16] LABS: HBc Num1 0.16 S/CO (0.00-0.79); HBsAGNum1 0.28 S/CO (0.00-0.99); Hepatitis A Antibody IgM 0.24 Index (0-0.79); Hepatitis B Core Antibody Nonreactive (Nonreactive); Hepatitis B Surface Antigen Negative (Negative); ~HepC Num1 0.14 S/CO (0.00-0.79); ~Hepatitis A Antibody IgM Nonreactive (Nonreactive); ~Hepatitis B Surface Antibody REACTIVE (Nonreactive); ~Hepatitis C Antibody Nonreactive (Nonreactive)
== END 2022-01-20 17:12 | disposition home or self-care (01) ==
LOC: HO.LAB 17:11
PROVIDERS: Visit Provider Nurse Practitioner Psychiatric/Mental Health
DX: F10.20 Alcohol dependence, uncomplicated (principal)
CPT/HCPCS: 36415; 82565; 84450; 84460; 84520; 86704; 86706; 86709; 86803; 87340

== ENCOUNTER → 2022-01-27 15:10 | Outpatient (BNVA) | payer MEDICAID, SELFPAY | PROVIDERS: PCP Internal Medicine; Visit Provider Nurse Practitioner Psychiatric/Mental Health | DX: F10.20 Alcohol dependence, uncomplicated (principal); Z51.81 Encounter for therapeutic drug level monitoring; Z79.899 Other long term (current) drug therapy | CPT/HCPCS: 80305; 81025; 96372; 99212 ==

== ENCOUNTER → 2022-02-25 15:47 | Outpatient (BNVA) | payer MEDICAID, SELFPAY | PROVIDERS: PCP Internal Medicine; Visit Provider Nurse Practitioner Psychiatric/Mental Health | DX: Z51.81 Encounter for therapeutic drug level monitoring (principal); F10.20 Alcohol dependence, uncomplicated | CPT/HCPCS: 80305; 81025; 96372; 99212 ==

== ENCOUNTER → 2022-03-30 15:47 | Outpatient (BNVA) | payer MEDICAID, SELFPAY | PROVIDERS: PCP Internal Medicine; Visit Provider Nurse Practitioner Psychiatric/Mental Health | DX: Z51.81 Encounter for therapeutic drug level monitoring (principal); F10.20 Alcohol dependence, uncomplicated | CPT/HCPCS: 80305; 81025; 96372; 99212 ==

== ENCOUNTER 2022-08-09 17:27 | Emergency (ER) | payer OTHER, MEDICAID, SELFPAY ==
[2022-08-09 17:38] VITALS: BP 165/90; PULSE 100; RESP 20; TEMP 36.7; O2SAT 100; BMI 29.0
--- NOTE | 2022-08-09 17:47 | ED_ITS ---
HPI - Alcohol General Chief Complaint: ETOH/Substance Use Stated Complaint: ETOH Time Seen by Provider: 08/09/22 17:30 History of Present Illness HPI narrative: Patient is a 47-year-old female with lots of stressors in life presented today with binge drinking for the last few months. Patient had thoughts of wanting to hurt herself. No specific plan. Patient does not have any guns in her house. Only alcohol. No other recreational drugs. Patient claims she last drink prior to arrival. Related Data Previous Rx's Medication Instructions Recorded ferrous sulfate 324 mg (65 mg 324 mg PO BIDWM 30 days #60 tabs 08/02/21 iron) tablet,delayed release prazosin 1 mg capsule 1 mg PO BEDTIME 30 days #30 caps 08/02/21 ascorbic acid (vitamin C) 250 mg 250 mg PO BIDWM #60 tabs 10/06/21 tablet famotidine 20 mg tablet 20 mg PO BID #60 tabs 10/06/21 folic acid 1 mg tablet 1 mg PO DAILY #30 tabs 10/06/21 lithium carbonate 600 mg capsule 600 mg PO BEDTIME #30 caps 10/06/21 lorazepam 0.5 mg tablet 0.5 mg PO BID #30 tabs 10/06/21 melatonin 3 mg tablet 6 mg PO BEDTIME PRN Insomnia #60 10/06/21 tabs omeprazole 20 mg capsule,delayed 20 mg PO DAILY@0630 #30 caps 10/06/21 release sertraline 100 mg tablet 100 mg PO DAILY #30 tabs 10/06/21 thiamine mononitrate (vit B1) 100 200 mg PO DAILY #60 tabs 10/06/21 mg tablet trazodone 150 mg tablet 150 mg PO BEDTIME #30 tabs 10/06/21 naltrexone 50 mg tablet 50 mg PO DAILY #30 tabs 01/21/22 naltrexone 50 mg tablet 50 mg PO DAILY cravings #30 tabs 03/30/22 naltrexone microspheres 380 mg 380 mg IM Q4W #1 ea 03/31/22 intramuscular suspension,extended release (Vivitrol) Allergies Allergy/AdvReac Type Severity Reaction Status Date / Time No Known Allergies Allergy Verified 03/30/22 16:09 Review of Systems Review of Systems: Positive ETOH positive SI Yes all other systems are reviewed and are negative PMFSH Past Medical History Attestation statement: The following information was validated with the patient. Medical History Alcohol abuse Alcohol dependence in early full remission Alcohol use Iron deficiency anemia Major depression Pancreatitis (~2018) Surgical History H/O gastric bypass (~2013) H/O gastric bypass Social History Social History Household Members: Spouse Household Members Other:: two cats Housing: House Do you presently have visiting nurse or other home services: No Alcohol intake: current Alcohol intake frequency: 3 or more drinks per day Alcohol type: beer and hard liquor Patient Tobacco Use Status: Never used Tobacco Smoked in Last 30 Days: No Use of substances other than those prescribed or required for medical reasons: Yes Substance Use Type: Marijuana Advance Directives: No Advance Directives Information Provided: No Patient : No service: No Sexual orientation: Straight/Heterosexual Physical Exam ED Vital Signs: Vital Signs - 24 hr 08/09/22 17:38 Temperature 98.1 F Pulse Rate 100 Respiratory Rate 20 Blood Pressure 165/90 H Pulse Oximetry 100 Oxygen Delivery Method Room Air BMI result Body Mass Index 29.0 Appearance: Alert. Oriented X3. No acute distress. Eyes: Pupils equal, round and reactive to light. ENT: Pharynx normal. Neck: Normal inspection. Neck supple. No lymph nodes noted. No crepitus CVS: Normal heart rate and rhythm. Pulses normal. Normal S1 and S2 Respiratory: No respiratory distress. Breath sounds normal. No Wheezing. No rales Abdomen: Soft and nontender. No rigidity. No distention. good BS x4 Skin: Skin warm and dry. Normal skin color. Normal skin turgor. Extremities: No lower extremity edema. Neurovascular intact to all extremities. No Lacerations. No Rash Neuro: Oriented X 3. No motor deficit. No sensory deficit. Moving all extermities. No slurred speech. Cranial nerves grossly intact Medical Decision Making Medical Decision Making MDM Narrative: Positive ETOH over 400. With suicidal ideation. Patient will require psychiatric evaluation after clinical sobriety. Patient told nursing she has thoughts about hanging herself after drinking. She was section because of suicidal ideation potential harm to self. Her test is negative. Differential Diagnosis Differential Diagnoses: The differential diagnosis associated with the presentation includes Depression, anxiety, suicidal ideation Lab Data MDM Lab Attestation statement: I reviewed the patient's lab results. 08/09/22 17:54 08/09/22 17:54 Labs: Lab Results 08/09/22 08/09/22 08/09/22 Range/Units 17:54 17:54 19:01 WBC 4.8 (4.8-10.8) X10*3/uL RBC 4.67 (4.20-5.50) X10*6/uL Hgb 8.9 L (12.0-16.0) g/dl Hct 31.3 L (37.0-47.0) % MCV 67.0 L (80.0-98.0) fL MCH 19.1 L (27.0-33.0) pg MCHC 28.4 L (31.0-35.0) g/dl RDW 23.1 H (11.0-16.0) % Plt Count 193 (160-400) X10*3/uL MPV 9.8 (9.4-12.3) fL Immature Gran % (Auto) 0.2 (0.0-0.4) % Neut % (Auto) 44.9 L (45-73) % Lymph % (Auto) 46.2 H (20-40) % [place] % (Auto) 6.0 (2-11) % Eos % (Auto) 1.9 (0-4) % Baso % (Auto) 0.8 (0-2) % Lymph # (Auto) 2.2 (1.2-4.9) X10*3/uL [place] # (Auto) 0.3 (0.1-1.2) X10*3/uL Eos # (Auto) 0.1 (0.0-0.4) X10*3/uL Baso # (Auto) 0.0 (0.0-0.2) X10*3/uL Abs Immat Gran (auto) 0.01 (0.00-0.03) X10*3/uL Absolute Neuts (auto) 2.2 (2.0-8.3) x10*3/uL Absolute Nucleated RBC 0.000 (0.0-0.012) X10*3/uL Nucleated RBC % (auto) 0.0 (0.0-0.2) /100WBC Sodium 144 (135-145) mmol/L Potassium 3.4 (3.3-5.1) mmol/L Chloride 108 (96-108) mmol/L Carbon Dioxide 25 (22-29) mmol/L Anion Gap 14 (12-20) BUN 7 L (9-16) mg/dL Creatinine 0.66 (0.5-1.4) mg/dL Estim Creat Clear Calc 113.5 Estimated GFR > 60 Random Glucose 109 (60-115) mg/dL Calcium 8.3 L (8.4-10.2) mg/dL Total Bilirubin 0.2 (0.0-1.0) mg/dL AST 25 (5-31) U/L ALT 12 (0-31) U/L Alkaline Phosphatase 95 (39-117) U/L Total Protein 7.3 (6.5-8.0) g/dL Albumin 3.8 (3.5-5.0) g/dL Lipase 26 (8-78) U/L Urine Color Yellow Urine Appearance Clear Urine pH 6.0 (5.0-9.0) Ur Specific [place] <= 1.005 (1.005-1.025) Urine Protein Negative (Neg-Trace) mg/dL Urine Glucose (UA) Negative (Negative) mg/dL Urine Ketones Negative (Negative) mg/dL Urine Blood Moderate (2+) H (Negative) Urine Nitrite Negative (Negative) Ur Leukocyte Esterase Small (1+) H (Negative) Urine RBC 0-2 (0-2) /HPF Urine WBC 0-5 (0-5) /HPF Ur Squamous Epith Cells 3-5 (0-2) /HPF Urine Bacteria Trace (None Seen) Hyaline Casts 0-2 (0-2) /LPF Urine Test (NEGATIVE) Salicylates < 5.0 L (15-30) mg/dL Urine Opiates Screen (Not Detect) Urine Fentanyl Screen (Not Detect) Acetaminophen < 17 (<30) mcg/mL Ur Barbiturates Screen (Not Detect) Ur Phencyclidine Scrn (Not Detect) Ur Amphetamines Screen (Not Detect) U Benzodiazepines Scrn (Not Detect) Urine Cocaine Screen (Not Detect) U Marijuana (THC) Screen (Not Detect) Ethyl Alcohol 412 H* mg/dL 03/19/23 03/19/23 Range/Units 19:01 19:01 WBC (4.8-10.8) X10*3/uL RBC (4.20-5.50) X10*6/uL Hgb (12.0-16.0) g/dl Hct (37.0-47.0) % MCV (80.0-98.0) fL MCH (27.0-33.0) pg MCHC (31.0-35.0) g/dl RDW (11.0-16.0) % Plt Count (160-400) X10*3/uL MPV (9.4-12.3) fL Immature Gran % (Auto) (0.0-0.4) % Neut % (Auto) (45-73) % Lymph % (Auto) (20-40) % [place] % (Auto) (2-11) % Eos % (Auto) (0-4) % Baso % (Auto) (0-2) % Lymph # (Auto) (1.2-4.9) X10*3/uL [place] # (Auto) (0.1-1.2) X10*3/uL Eos # (Auto) (0.0-0.4) X10*3/uL Baso # (Auto) (0.0-0.2) X10*3/uL Abs Immat Gran (auto) (0.00-0.03) X10*3/uL Absolute Neuts (auto) (2.0-8.3) x10*3/uL Absolute Nucleated RBC (0.0-0.012) X10*3/uL Nucleated RBC % (auto) (0.0-0.2) /100WBC Sodium (135-145) mmol/L Potassium (3.3-5.1) mmol/L Chloride (96-108) mmol/L Carbon Dioxide (22-29) mmol/L Anion Gap (12-20) BUN (9-16) mg/dL Creatinine (0.5-1.4) mg/dL Estim Creat Clear Calc Estimated GFR Random Glucose (60-115) mg/dL Calcium (8.4-10.2) mg/dL Total Bilirubin (0.0-1.0) mg/dL AST (5-31) U/L ALT (0-31) U/L Alkaline Phosphatase (39-117) U/L Total Protein (6.5-8.0) g/dL Albumin (3.5-5.0) g/dL Lipase (8-78) U/L Urine Color Urine Appearance Urine pH (5.0-9.0) Ur Specific [place] (1.005-1.025) Urine Protein (Neg-Trace) mg/dL Urine Glucose (UA) (Negative) mg/dL Urine Ketones (Negative) mg/dL Urine Blood (Negative) Urine Nitrite (Negative) Ur Leukocyte Esterase (Negative) Urine RBC (0-2) /HPF Urine WBC (0-5) /HPF Ur Squamous Epith Cells (0-2) /HPF Urine Bacteria (None Seen) Hyaline Casts (0-2) /LPF Urine Test NEGATIVE (NEGATIVE) Salicylates (15-30) mg/dL Urine Opiates Screen Not Detected (Not Detect) Urine Fentanyl Screen Not Detected (Not Detect) Acetaminophen (<30) mcg/mL Ur Barbiturates Screen Not Detected (Not Detect) Ur Phencyclidine Scrn Not Detected (Not Detect) Ur Amphetamines Screen Not Detected (Not Detect) U Benzodiazepines Scrn Not Detected (Not Detect) Urine Cocaine Screen Not Detected (Not Detect) U Marijuana (THC) Screen POSITIVE H (Not Detect) Ethyl Alcohol mg/dL Medications Administered Discontinued Medications Generic Name Dose Route Start Last Admin Trade Name Freq PRN Reason Stop Dose Admin Al Hydroxide/Mg Hydroxide 30 ml 08/09/22 20:21 08/09/22 20:25 Magnesium Hydrox/Alum Hydrox 30 Ml Oral.Susp PO 08/09/22 20:22 30 ml ONCE ONE Administration Sodium Chloride 1,000 mls @ 999 mls/hr 08/09/22 17:45 08/09/22 19:35 Ns IV 08/09/22 18:45 Infused .Q1H1M WILSON Infusion Lorazepam 2 mg 08/09/22 23:53 08/09/22 23:56 Lorazepam 1 Mg Tablet PO 08/09/22 23:54 2 mg ONCE ONE Administration Ondansetron HCl 4 mg 08/09/22 17:44 08/09/22 17:59 Ondansetron Hcl 4 Mg/2 Ml Vial IVPUSH 08/09/22 17:45 4 mg ONCE ONE Administration Ondansetron HCl 4 mg 08/09/22 19:19 08/09/22 19:34 Ondansetron Hcl 4 Mg/2 Ml Vial IVPUSH 08/09/22 19:20 Not Given ONCE ONE Discharge Plan Discharge Clinical Impression: Alcoholic intoxication, Suicidal ideation Patient Disposition: Still a Patient Prescriptions: No Action naltrexone 50 mg tablet 50 mg PO DAILY Qty: 30 0RF Vivitrol 380 mg suspension,extended rel recon 380 mg IM Q4W Qty: 1 5RF lithium carbonate 600 mg capsule 600 mg PO BEDTIME Qty: 30 0RF lorazepam 0.5 mg Tablet 0.5 mg PO BID Qty: 30 0RF trazodone 150 mg tablet 150 mg PO BEDTIME Qty: 30 0RF melatonin 3 mg Tablet 6 mg PO BEDTIME PRN (Reason: Insomnia) Qty: 60 0RF famotidine 20 mg Tablet 20 mg PO BID Qty: 60 0RF ascorbic acid (vitamin C) 250 mg Tablet 250 mg PO BIDWM Qty: 60 0RF omeprazole 20 mg Capsule,Delayed Release(Dr/Ec) 20 mg PO DAILY@0630 Qty: 30 0RF folic acid 1 mg Tablet 1 mg PO DAILY Qty: 30 0RF thiamine mononitrate (vit B1) 100 mg Tablet 200 mg PO DAILY Qty: 60 0RF sertraline 100 mg tablet 100 mg PO DAILY Qty: 30 0RF ferrous sulfate 324 mg (65 mg iron) Tablet,Delayed Release (Dr/Ec) 324 mg PO BIDWM 30 Days Qty: 60 0RF prazosin 1 mg Capsule 1 mg PO BEDTIME 30 Days Qty: 30 0RF Protocol: Hold for SBP< HOLD for SBP < : 90 naltrexone 50 mg tablet 50 mg PO DAILY Qty: 30 0RF Rx Instructions: take on tab daily as needed during week prior to scheduled Vivitrol, in order to help manage cravings. Interventions: [place]-Suicide Risk Severity Scale Last Done: 08/09/22 18:59
[2022-08-09] MEDS: 0.9 % Sodium Chloride 1,000 ML 999 ML IV (17:56)
[2022-08-09] MEDS: ondansetron HCL 4 MG/2 ML VIAL IVPUSH (17:59)
[2022-08-09 18:27] LABS: MANUAL DIFF FLAG NO
[2022-08-09 18:29] LABS: Basophils Percent Auto 0.8 % (0-2); Eosinophils Absolute Auto 0.1 X10*3/uL (0.0-0.4); Eosinophils Percent Auto 1.9 % (0-4); Hematocrit 31.3 % (37.0-47.0); Hemoglobin 8.9 g/dl (12.0-16.0); Imm Gran Abs Auto 0.01 X10*3/uL (0.00-0.03); Imm Gran Pct Auto 0.2 % (0.0-0.4); Lymphocytes Absolute Auto 2.2 X10*3/uL (1.2-4.9); Lymphocytes Percent Auto 46.2 % (20-40); Mean Corpuscular HGB Conc 28.4 g/dl (31.0-35.0); Mean Corpuscular Hemoglobin 19.1 pg (27.0-33.0); Mean Platelet Volume 9.8 fL (9.4-12.3); Monocytes Absolute Auto 0.3 X10*3/uL (0.1-1.2); Neutrophils Absolute Auto 2.2 x10*3/uL (2.0-8.3); Neutrophils Percent Auto 44.9 % (45-73); Platelet Count 193 X10*3/uL (160-400); Red Blood Count 4.67 X10*6/uL (4.20-5.50); Red Cell Distribution Width 23.1 % (11.0-16.0); White Blood Count 4.8 X10*3/uL (4.8-10.8)
[2022-08-09 18:48] LABS: Creatinine Clr Calc Pharmacy 113.5; Estimated Glomerular Filt Rate > 60
[2022-08-09 18:56] LABS: Acetaminophen LAB < 17 mcg/mL (<30); Alanine Aminotransferase 12 U/L (0-31); Albumin Level 3.8 g/dL (3.5-5.0); Alkaline Phosphatase 95 U/L (39-117); Anion Gap 14 (12-20); Aspartate Amino Transferase 25 U/L (5-31); Bilirubin Total 0.2 mg/dL (0.0-1.0); Blood Urea Nitrogen 7 mg/dL (9-16); Calcium 8.3 mg/dL (8.4-10.2); Carbon Dioxide 25 mmol/L (22-29); Chloride 108 mmol/L (96-108); Ethanol 412 mg/dL; Glucose Random 109 mg/dL (60-115); Potassium 3.4 mmol/L (3.3-5.1); Salicylate < 5.0 mg/dL (15-30); Sodium 144 mmol/L (135-145); Total Protein 7.3 g/dL (6.5-8.0)
[2022-08-09 19:14] LABS: Appearance Urine Clear; Color Urine Yellow; Glucose Urine UA Negative (Negative); Leukocyte Esterase Urine Small (1+) (Negative); Nitrite Urine Negative (Negative); Specific Gravity - Urine <= 1.005 (1.005-1.025); UMIC TRIGGER UA YES; Urine Blood Moderate (2+) (Negative); Urine Ketones Negative (Negative); Urine Protein Negative (Neg-Trace)
[2022-08-09 19:15] LABS: UPreg QC Valid YES; Urine Pregnancy NEGATIVE (NEGATIVE)
[2022-08-09 19:28] LABS: Amphetamine Screen Urine Not Detected (Not Detect); Barbiturates, Urine Not Detected (Not Detect); Benzodiazepines Screen Urine Not Detected (Not Detect); Cannabinoid Screen Urine POSITIVE (Not Detect); Cocaine Screen Urine Not Detected (Not Detect); Fentanyl, urine Not Detected (Not Detect); Opiate Screen Urine Not Detected (Not Detect); Phencyclidine Screen Urine Not Detected (Not Detect)
[2022-08-09] MEDS: Magnesium Hydrox/Alum Hydrox 30 ML ORAL.SUSP PO (20:25)
[2022-08-09 20:36] LABS: Lipase 26 U/L (8-78)
[2022-08-09 22:39] LABS: Bacteria Urine Trace (None Seen); Hyaline Casts Urine 0-2 /LPF (0-2); RBC Urine 0-2 /HPF (0-2); WBC Urine 0-5 /HPF (0-5)
[2022-08-09] MEDS: LORazepam 1 MG TABLET 2 MG PO (23:56)
--- NOTE | 2022-08-10 07:02 | PC.NURSE ---
assumed care of patient, pt resting comfortably in bed VSS, sec [address], awaiting CARE team
[2022-08-10 07:05] VITALS: BP 108/76; PULSE 75; RESP 16; TEMP 36.4; O2SAT 99
[2022-08-10 07:15] LABS: COVID-19 Test Negative (Negative); IDNOW Serial# 9DB6401D
[2022-08-10] MEDS: Acetaminophen 325 MG TABLET 975 MG PO (09:31)
--- NOTE | 2022-08-10 11:00 | PHA.MEDREC ---
Pharmacy Consult ? Medication Reconciliation Pharmacy has completed the medication reconciliation. Patient presented a handwritten list of medications she is supposed to be on but states it has been a while since she has taken her medications regularly. She also claims that the trazodone 150 mg dose was helping her to sleep at first but then seemed to be less helpful. Expresses that higher doses might be needed for that.
--- NOTE | 2022-08-10 13:38 | MHC.RECOVRN ---
This scientific technical writer met w/ patient. Patient was alert, walking around unit. Patient reports feeling physically stable, reports no withdrawal symptoms at this time. Patient states was doing well for several months. Patient reports had a misunderstanding with family and had a recurrence for past week, daily drinking 10 nips. Patient states prior to week occurrence had several months of no ETOH use, intermittent use after 3 nights of insomnia. Patient states insomnia has been trigger, will drink to sleep. Patient states has been hiding ETOH use from family. Patient reports has recovery supports, patient states has had a tin recovery worker in the past. Patient identifies that its hard to open up to people when struggling and tends to isolate. This scientific technical writer and patient reviewed upcoming appt at [facility] that Care Team had made, discussed PRISCILLA. Patient reports goal is to get back on meds prescribed by PCP, trazadone zoloft that patient states was helpful and patient felt stable on those meds. Patient reports has upcoming appt with PCP. Patient states not interested in restarting Vivitrol at this time, discussed Campral. Patient to review PRISCILLA and supports more tomorrow at [facility] Care appt.
== END 2022-08-10 16:12 | disposition home or self-care (01) ==
PROVIDERS: Emergency Provider Emergency Medicine Emergency Medical Services
DX: F10.129 Alcohol abuse with intoxication, unspecified (principal); Y90.8 Blood alcohol level of 240 mg/100 ml or more; R45.851 Suicidal ideations; Z20.822 Contact with and (suspected) exposure to COVID-19; Z20.828 Contact with and (suspected) exposure to other viral communicable diseases; Z79.899 Other long term (current) drug therapy
CPT/HCPCS: 36415; 80053; 80143; 80179; 80307; 81001; 81025; 82077; 83690; 85025; 87635; 96361; 96374; 96375; 99285; J2405; S9485

== ENCOUNTER 2022-10-20 21:42 | Emergency (ER) | payer OTHER, SELFPAY ==
[2022-10-20 21:45] VITALS: BP 138/96; PULSE 114; RESP 18; TEMP 36.8; O2SAT 98; BMI 24.3
[2022-10-20 23:16] LABS: MANUAL DIFF FLAG NO
[2022-10-20 23:17] LABS: Basophils Percent Auto 0.6 % (0-2); Eosinophils Absolute Auto 0.1 X10*3/uL (0.0-0.4); Eosinophils Percent Auto 1.9 % (0-4); Hematocrit 29.6 % (37.0-47.0); Hemoglobin 8.5 g/dl (12.0-16.0); Imm Gran Abs Auto 0.02 X10*3/uL (0.00-0.03); Imm Gran Pct Auto 0.4 % (0.0-0.4); Lymphocytes Absolute Auto 2.1 X10*3/uL (1.2-4.9); Lymphocytes Percent Auto 42.8 % (20-40); Mean Corpuscular HGB Conc 28.7 g/dl (31.0-35.0); Mean Corpuscular Hemoglobin 17.7 pg (27.0-33.0); Mean Platelet Volume 9.4 fL (9.4-12.3); Monocytes Absolute Auto 0.2 X10*3/uL (0.1-1.2); Monocytes Percent Auto 4.4 % (2-11); Neutrophils Absolute Auto 2.4 x10*3/uL (2.0-8.3); Neutrophils Percent Auto 49.9 % (45-73); Platelet Count 197 X10*3/uL (160-400); Red Blood Count 4.79 X10*6/uL (4.20-5.50); White Blood Count 4.8 X10*3/uL (4.8-10.8)
[2022-10-20 23:19] LABS: Mean Corpuscular Volume 61.8 fL (80.0-98.0)
[2022-10-20 23:37] LABS: Alanine Aminotransferase 16 U/L (0-31); Alkaline Phosphatase 158 U/L (39-117); Anion Gap 18 (12-20); Aspartate Amino Transferase 30 U/L (5-31); Bilirubin Total 0.4 mg/dL (0.0-1.0); Blood Urea Nitrogen 7 mg/dL (9-16); Calcium 8.7 mg/dL (8.4-10.2); Carbon Dioxide 20 mmol/L (22-29); Chloride 106 mmol/L (96-108); Creatinine Clr Calc Pharmacy 89.9; Estimated Glomerular Filt Rate > 60; Ethanol 331 mg/dL; Glucose Random 141 mg/dL (60-115); Lipase 17 U/L (8-78); Magnesium 2.1 mg/dL (1.6-2.6); Potassium 3.9 mmol/L (3.3-5.1); Sodium 140 mmol/L (135-145); Total Protein 8.1 g/dL (6.5-8.0)
[2022-10-20 23:51] VITALS: BP 117/63; PULSE 90; RESP 20; O2SAT 99
[2022-10-20] MEDS: ondansetron HCL 4 MG/2 ML VIAL IVPUSH (23:55)
[2022-10-20] MEDS: 0.9 % Sodium Chloride 1,000 ML 999 ML IV (23:56)
[2022-10-21 00:02] LABS: Appearance Urine Cloudy; Color Urine Yellow; Glucose Urine UA Negative (Negative); Leukocyte Esterase Urine Small (1+) (Negative); Nitrite Urine Negative (Negative); Specific Gravity - Urine 1.015 (1.005-1.025); UMIC TRIGGER UACC YES; Urine Blood Negative (Negative); Urine Ketones Trace mg/dL (Negative); Urine Protein 30 (1+) mg/dL (Neg-Trace)
--- NOTE | 2022-10-21 00:05 | PC.NURSE ---
late entry- this rn assumed care of pt @ 0000 from waiting room. pt mother and sister at bedside. 1:[address] pt changed into hospital attire
[2022-10-21 00:12] LABS: Amphetamine Screen Urine Not Detected (Not Detect); Barbiturates, Urine POSITIVE (Not Detect); Benzodiazepines Screen Urine Not Detected (Not Detect); Cannabinoid Screen Urine POSITIVE (Not Detect); Cocaine Screen Urine Not Detected (Not Detect); Fentanyl, urine Not Detected (Not Detect); Opiate Screen Urine Not Detected (Not Detect); Phencyclidine Screen Urine Not Detected (Not Detect)
[2022-10-21 00:29] LABS: Bacteria Urine 2+ (None Seen); RBC Urine 0-2 /HPF (0-2); UACC Culture Trigger YES; WBC Urine 0-5 /HPF (0-5)
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
[2022-10-21] MEDS: 0.9 % Sodium Chloride 1,000 ML 999 ML IV (02:02)
[2022-10-21 03:01] VITALS: BP 106/64; PULSE 84; RESP 19; TEMP 36.5; O2SAT 98
[2022-10-21 04:56] VITALS: BP 113/71; PULSE 97; RESP 19; O2SAT 100
[2022-10-21] MEDS: Acetaminophen 325 MG TABLET 975 MG PO (05:30)
--- NOTE | 2022-10-21 05:33 | PC.NURSE ---
pt reporting body aches pt medicated according to mar. pt sat up in bed ciwa score of 4 at this time. pt repositioned back to bed. 1:[address]
[2022-10-21 06:55] VITALS: BP 113/68; PULSE 85; RESP 15; TEMP 37.2; O2SAT 98
[2022-10-21] MEDS: Ondansetron ODT 4 MG TAB.RAPDIS TRANSLINGU (08:34)
[2022-10-21] MEDS: chlordiazePOXIDE HCl 25 MG CAPSULE PO (08:34)
[2022-10-21] MEDS: LORazepam 2 MG/ML VIAL IVPUSH (09:50)
--- NOTE | 2022-10-21 14:20 | MHC.RECOVSUP ---
Met with pt in [facility] who is here for AUD and mentions SI. Pt was cleared by care team and T/W met with pt to review ATS and recovery resources. 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 T/W suggested PHP and medications for ETOH use, pt is open to PHP and will call to set that up and is interested in Vivitrol as she has been on it in the past and it was helpful. Appointment was made for pt with [facility] at 3pm on 10/23/22. Pt has no other questions or concerns at this time. Provider is aware.
== END 2022-10-21 16:14 | disposition home or self-care (01) ==
PROVIDERS: Student in an Organized Health Care Education/Training Program; Emergency Provider Emergency Medicine
DX: F10.220 Alcohol dependence with intoxication, uncomplicated (principal); Y90.8 Blood alcohol level of 240 mg/100 ml or more; F31.32 Bipolar disorder, current episode depressed, moderate; R45.851 Suicidal ideations; Z79.899 Other long term (current) drug therapy
CPT/HCPCS: 36415; 80053; 80307; 81001; 81003; 83690; 83735; 85025; 87086; 96361; 96374; 96375; 99285; J2060; J2405; S9485

== ENCOUNTER 2022-10-26 20:49 | Emergency (ER) | payer OTHER, SELFPAY ==
[2022-10-26 20:54] VITALS: BP 140/93; PULSE 111; RESP 17; TEMP 37; O2SAT 98; BMI 29.0
--- NOTE | 2022-10-26 20:54 | ED.ALCOHOL ---
HPI - Alcohol General Chief Complaint: Psychiatric Symptoms Stated Complaint: Crisis/Etoh Time Seen by Provider: 10/26/22 20:54 History of Present Illness HPI narrative: Patient is a 47-year-old female drank alcohol had suicidal thoughts after getting a divorce from her . Patient feel very stressed. Had a history of bipolar. Previous history of alcohol abuse. History of gastric bypass. Positive nausea. Has thoughts about hanging herself. Did not actually attempt. Related Data Home Medications Medication Instructions Recorded Confirmed hydroxyzine HCl 50 mg tablet 1 tab PO BID PRN anxiety 08/10/22 10/26/22 multivitamin (Daily Multi-Vitamin 1 tab PO DAILY 08/10/22 10/26/22 tablet) prazosin 1 mg capsule 1 mg PO BEDTIME 10/26/22 10/26/22 sertraline 100 mg tablet 100 mg PO DAILY depressive disorder 10/26/22 10/26/22 trazodone 150 mg tablet 150 mg PO BEDTIME insomnia 10/26/22 10/26/22 Previous Rx's Medication Instructions Recorded ferrous sulfate 324 mg (65 mg 324 mg PO BIDWM 30 days #60 tabs 08/02/21 iron) tablet,delayed release Allergies Allergy/AdvReac Type Severity Reaction Status Date / Time No Known Allergies Allergy Verified 08/10/22 05:33 Review of Systems Review of Systems: Positive suicidal thoughts Yes all other systems are reviewed and are negative PMFSH Past Medical History Attestation statement: The following information was validated with the patient. Medical History Alcohol abuse Alcohol dependence in early full remission Alcohol use Iron deficiency anemia Major depression Pancreatitis (~2018) Surgical History H/O gastric bypass (~2013) H/O gastric bypass Social History Social History Household Members: Spouse Household Members Other:: two cats Housing: House Do you presently have visiting nurse or other home services: No Alcohol intake: current Alcohol intake frequency: 3 or more drinks per day Alcohol type: beer and hard liquor Patient Tobacco Use Status: Never used Tobacco Substance Use Type: Marijuana Advance Directives: No Advance Directives Information Provided: Yes service: No Sexual orientation: Straight/Heterosexual Physical Exam ED Vital Signs: Vital Signs - 24 hr 10/26/22 20:54 10/27/22 05:55 Temperature 98.6 F 97.6 F Pulse Rate 111 H 94 Respiratory Rate 17 17 Blood Pressure 140/93 H 127/63 Pulse Oximetry 98 99 Oxygen Delivery Method Room Air Room Air BMI result Body Mass Index 29.0 Appearance: Alert. Oriented X3. No acute distress. Eyes: Pupils equal, round and reactive to light. ENT: Pharynx normal. Neck: Normal inspection. Neck supple. No lymph nodes noted. No crepitus CVS: Normal heart rate and rhythm. Pulses normal. Normal S1 and S2 Respiratory: No respiratory distress. Breath sounds normal. No Wheezing. No rales Abdomen: Soft and nontender. No rigidity. No distention. good BS x4 Skin: Skin warm and dry. Normal skin color. Normal skin turgor. Extremities: No lower extremity edema. Neurovascular intact to all extremities. No Lacerations. No Rash Neuro: Oriented X 3. No motor deficit. No sensory deficit. Moving all extermities. No slurred speech. Cranial nerves grossly intact Medical Decision Making Medical Decision Making MDM Narrative: Patient positive EtOH. Recently had a divorce. Positive suicidal ideation. Awaiting care team evaluation. Currently in stable condition. Patient stated she wants to hang herself. Consult Healthcare Provider Management of the patient was discussed with: Behavioral Health Provider Care team Lab Data [facility] Lab Attestation statement: I reviewed the patient's lab results. 10/26/22 21:35 10/26/22 21:35 Labs: Lab Results 10/26/22 10/26/22 10/26/22 Range/Units 21:34 21:34 21:35 WBC (4.8-10.8) X10*3/uL RBC (4.20-5.50) X10*6/uL Hgb (12.0-16.0) g/dl Hct (37.0-47.0) % MCV (80.0-98.0) fL MCH (27.0-33.0) pg MCHC (31.0-35.0) g/dl RDW (11.0-16.0) % Plt Count (160-400) X10*3/uL MPV (9.4-12.3) fL Immature Gran % (Auto) (0.0-0.4) % Neut % (Auto) (45-73) % Lymph % (Auto) (20-40) % [place] % (Auto) (2-11) % Eos % (Auto) (0-4) % Baso % (Auto) (0-2) % Lymph # (Auto) (1.2-4.9) X10*3/uL [place] # (Auto) (0.1-1.2) X10*3/uL Eos # (Auto) (0.0-0.4) X10*3/uL Baso # (Auto) (0.0-0.2) X10*3/uL Abs Immat Gran (auto) (0.00-0.03) X10*3/uL Absolute Neuts (auto) (2.0-8.3) x10*3/uL Absolute Nucleated RBC (0.0-0.012) X10*3/uL Nucleated RBC % (auto) (0.0-0.2) /100WBC Smear Tech's Comments Sodium 141 (135-145) mmol/L Potassium 3.9 (3.3-5.1) mmol/L Chloride 106 (96-108) mmol/L Carbon Dioxide 23 (22-29) mmol/L Anion Gap 16 (12-20) BUN 9 (9-16) mg/dL Creatinine 0.72 (0.5-1.4) mg/dL Estim Creat Clear Calc 104.0 Estimated GFR > 60 Random Glucose 130 H (60-115) mg/dL Calcium 8.2 L (8.4-10.2) mg/dL Total Bilirubin 0.4 (0.0-1.0) mg/dL AST 23 (5-31) U/L ALT 11 (0-31) U/L Alkaline Phosphatase 139 H (39-117) U/L Total Protein 7.4 (6.5-8.0) g/dL Albumin 3.6 (3.5-5.0) g/dL Urine Color Yellow Urine Appearance Clear Urine pH 5.5 (5.0-9.0) Ur Specific [place] 1.010 (1.005-1.025) Urine Protein Negative (Neg-Trace) mg/dL Urine Glucose (UA) Negative (Negative) mg/dL Urine Ketones Trace (Negative) mg/dL Urine Blood Negative (Negative) Urine Nitrite Positive H (Negative) Ur Leukocyte Esterase Negative (Negative) Urine RBC 0-2 (0-2) /HPF Urine WBC 0-5 (0-5) /HPF Ur Squamous Epith Cells 0-2 (0-2) /HPF Urine Bacteria 4+ (None Seen) Hyaline Casts 3-5 (0-2) /LPF Urine Opiates Screen Not Detected (Not Detect) Urine Fentanyl Screen Not Detected (Not Detect) Ur Barbiturates Screen POSITIVE H (Not Detect) Ur Phencyclidine Scrn Not Detected (Not Detect) Ur Amphetamines Screen Not Detected (Not Detect) U Benzodiazepines Scrn POSITIVE H (Not Detect) Urine Cocaine Screen Not Detected (Not Detect) U Marijuana (THC) Screen POSITIVE H (Not Detect) Ethyl Alcohol 321 H* mg/dL COVID-19 (MIKA) (Negative) COVID-19 Clin Com 10/26/22 10/26/22 Range/Units 21:35 21:35 WBC 4.9 (4.8-10.8) X10*3/uL RBC 4.35 (4.20-5.50) X10*6/uL Hgb 8.1 L (12.0-16.0) g/dl Hct 27.7 L (37.0-47.0) % MCV 63.7 L (80.0-98.0) fL MCH 18.6 L (27.0-33.0) pg MCHC 29.2 L (31.0-35.0) g/dl RDW 21.3 H (11.0-16.0) % Plt Count 111 L D (160-400) X10*3/uL MPV 9.6 (9.4-12.3) fL Immature Gran % (Auto) 0.2 (0.0-0.4) % Neut % (Auto) 55.4 (45-73) % Lymph % (Auto) 35.1 (20-40) % [place] % (Auto) 6.7 (2-11) % Eos % (Auto) 2.0 (0-4) % Baso % (Auto) 0.6 (0-2) % Lymph # (Auto) 1.7 (1.2-4.9) X10*3/uL [place] # (Auto) 0.3 (0.1-1.2) X10*3/uL Eos # (Auto) 0.1 (0.0-0.4) X10*3/uL Baso # (Auto) 0.0 (0.0-0.2) X10*3/uL Abs Immat Gran (auto) 0.01 (0.00-0.03) X10*3/uL Absolute Neuts (auto) 2.7 (2.0-8.3) x10*3/uL Absolute Nucleated RBC 0.000 (0.0-0.012) X10*3/uL Nucleated RBC % (auto) 0.0 (0.0-0.2) /100WBC Smear Tech's Comments VERIFIED Sodium (135-145) mmol/L Potassium (3.3-5.1) mmol/L Chloride (96-108) mmol/L Carbon Dioxide (22-29) mmol/L Anion Gap (12-20) BUN (9-16) mg/dL Creatinine (0.5-1.4) mg/dL Estim Creat Clear Calc Estimated GFR Random Glucose (60-115) mg/dL Calcium (8.4-10.2) mg/dL Total Bilirubin (0.0-1.0) mg/dL AST (5-31) U/L ALT (0-31) U/L Alkaline Phosphatase (39-117) U/L Total Protein (6.5-8.0) g/dL Albumin (3.5-5.0) g/dL Urine Color Urine Appearance Urine pH (5.0-9.0) Ur Specific Harrison (1.005-1.025) Urine Protein (Neg-Trace) mg/dL Urine Glucose (UA) (Negative) mg/dL Urine Ketones (Negative) mg/dL Urine Blood (Negative) Urine Nitrite (Negative) Ur Leukocyte Esterase (Negative) Urine RBC (0-2) /HPF Urine WBC (0-5) /HPF Ur Squamous Epith Cells (0-2) /HPF Urine Bacteria (None Seen) Hyaline Casts (0-2) /LPF Urine Opiates Screen (Not Detect) Urine Fentanyl Screen (Not Detect) Ur Barbiturates Screen (Not Detect) Ur Phencyclidine Scrn (Not Detect) Ur Amphetamines Screen (Not Detect) U Benzodiazepines Scrn (Not Detect) Urine Cocaine Screen (Not Detect) U Marijuana (THC) Screen (Not Detect) Ethyl Alcohol mg/dL COVID-19 (MIKA) Negative (Negative) COVID-19 Clin Com See Note Medications Administered Discontinued Medications Generic Name Dose Route Start Last Admin Trade Name Shameka PRN Reason Stop Dose Admin Lorazepam 2 mg 10/26/22 23:49 10/26/22 23:55 Lorazepam 1 Mg Tablet PO 10/26/22 23:50 2 mg ONCE ONE Administration Ondansetron HCl 4 mg 10/26/22 21:23 10/26/22 21:26 Ondansetron Odt 4 Mg Tab.Rapdis TRANSLINGU 10/26/22 21:24 4 mg ONCE ONE Administration Ondansetron HCl 4 mg 10/26/22 23:49 10/26/22 23:55 Ondansetron Odt 4 Mg Tab.Rapdis TRANSLINGU 10/26/22 23:50 4 mg ONCE ONE Administration Discharge Plan Discharge Clinical Impression: Alcohol use Patient Disposition: Still a Patient Prescriptions: No Action ferrous sulfate 324 mg (65 mg iron) Tablet,Delayed Release (Dr/Ec) 324 mg PO BIDWM 30 Days Qty: 60 0RF multivitamin [Daily Multi-Vitamin] Tablet 1 tab PO DAILY hydroxyzine HCl 50 mg tablet 1 tab PO BID PRN (Reason: anxiety) sertraline 100 mg tablet 100 mg PO DAILY trazodone 150 mg tablet 150 mg PO BEDTIME prazosin 1 mg capsule 1 mg PO BEDTIME Interventions: [place]-Suicide Risk Severity Scale Last Done: 10/27/22 05:23
[2022-10-26] MEDS: Ondansetron ODT 4 MG TAB.RAPDIS TRANSLINGU ×2 (21:26→23:55)
[2022-10-26 21:42] LABS: Basophils Percent Auto 0.6 % (0-2); Eosinophils Absolute Auto 0.1 X10*3/uL (0.0-0.4); Hemoglobin 8.1 g/dl (12.0-16.0); SCAN SMEAR FLAG 1
[2022-10-26 21:43] LABS: Appearance Urine Clear; Color Urine Yellow; Glucose Urine UA Negative (Negative); Leukocyte Esterase Urine Negative (Negative); Nitrite Urine Positive (Negative); PH 5.5 (5.0-9.0); UMIC TRIGGER UA YES; Urine Blood Negative (Negative); Urine Ketones Trace mg/dL (Negative); Urine Protein Negative (Neg-Trace)
[2022-10-26 21:44] LABS: Hematocrit 27.7 % (37.0-47.0); Imm Gran Abs Auto 0.01 X10*3/uL (0.00-0.03); Imm Gran Pct Auto 0.2 % (0.0-0.4); Lymphocytes Absolute Auto 1.7 X10*3/uL (1.2-4.9); Lymphocytes Percent Auto 35.1 % (20-40); MANUAL DIFF FLAG SCAN; Mean Corpuscular HGB Conc 29.2 g/dl (31.0-35.0); Mean Corpuscular Hemoglobin 18.6 pg (27.0-33.0); Mean Platelet Volume 9.6 fL (9.4-12.3); Monocytes Absolute Auto 0.3 X10*3/uL (0.1-1.2); Monocytes Percent Auto 6.7 % (2-11); Neutrophils Absolute Auto 2.7 x10*3/uL (2.0-8.3); Neutrophils Percent Auto 55.4 % (45-73); Platelet Count 111 X10*3/uL (160-400); Red Blood Count 4.35 X10*6/uL (4.20-5.50); Red Cell Distribution Width 21.3 % (11.0-16.0); White Blood Count 4.9 X10*3/uL (4.8-10.8)
[2022-10-26 21:45] LABS: Mean Corpuscular Volume 63.7 fL (80.0-98.0); PLT ABN DIST 1
[2022-10-26 21:46] LABS: Bacteria Urine 4+ (None Seen); RBC Urine 0-2 /HPF (0-2); Squamous Epithelial Cell Urine 0-2 /HPF (0-2); WBC Urine 0-5 /HPF (0-5)
[2022-10-26 21:55] LABS: Amphetamine Screen Urine Not Detected (Not Detect); Barbiturates, Urine POSITIVE (Not Detect); Benzodiazepines Screen Urine POSITIVE (Not Detect); Cannabinoid Screen Urine POSITIVE (Not Detect); Cocaine Screen Urine Not Detected (Not Detect); Fentanyl, urine Not Detected (Not Detect); Opiate Screen Urine Not Detected (Not Detect); Phencyclidine Screen Urine Not Detected (Not Detect)
[2022-10-26 21:55] LABS: COVID-19 Test Negative (Negative); IDNOW Serial# 08D9AD1C
[2022-10-26 21:59] LABS: SLIDE REVIEW VERIFIED
[2022-10-26 22:00] LABS: Alanine Aminotransferase 11 U/L (0-31); Albumin Level 3.6 g/dL (3.5-5.0); Alkaline Phosphatase 139 U/L (39-117); Anion Gap 16 (12-20); Aspartate Amino Transferase 23 U/L (5-31); Bilirubin Total 0.4 mg/dL (0.0-1.0); Blood Urea Nitrogen 9 mg/dL (9-16); Calcium 8.2 mg/dL (8.4-10.2); Carbon Dioxide 23 mmol/L (22-29); Chloride 106 mmol/L (96-108); Estimated Glomerular Filt Rate > 60; Ethanol 321 mg/dL; Glucose Random 130 mg/dL (60-115); Potassium 3.9 mmol/L (3.3-5.1); Sodium 141 mmol/L (135-145); Total Protein 7.4 g/dL (6.5-8.0)
[2022-10-26] MEDS: LORazepam 1 MG TABLET 2 MG PO (23:55)
--- NOTE | 2022-10-27 05:33 | PC.NURSE ---
Patient slept through the night, Ativan 2 mg PO administered at 2355 for comfort with + effect, no distress observed/reported thus far, med rec completed/pending provider's approval, asymptomatic of ETOH withdrawal but patient will be at risk later, care consult ordered/pending evaluation, VSS, will continue to monitor.
[2022-10-27 05:55] VITALS: BP 127/63; PULSE 94; RESP 17; TEMP 36.4; O2SAT 99
[2022-10-27 09:05] LABS: Appearance Urine Cloudy; Color Urine Yellow; Glucose Urine UA Negative (Negative); Leukocyte Esterase Urine Moderate (2+) (Negative); Nitrite Urine Positive (Negative); UMIC TRIGGER UACC YES; Urine Blood Negative (Negative); Urine Ketones 15 mg/dL (Negative); Urine Protein Negative (Neg-Trace)
[2022-10-27 09:13] LABS: Bacteria Urine 4+ (None Seen); Hyaline Casts Urine 0-2 /LPF (0-2); RBC Urine 0-2 /HPF (0-2); UACC Culture Trigger YES; WBC Urine 0-5 /HPF (0-5)
[2022-10-27] MEDS: LORazepam 1 MG TABLET 2 MG PO ×2 (09:52→14:48)
--- NOTE | 2022-10-27 09:53 | PC.NURSE ---
Pt C/O S/S of ETOH withdrawal, nightmare, tremors, INFANTE. Medicated as ordered. Back to bed.
[2022-10-27 09:54] VITALS: BP 131/78; PULSE 101; RESP 16; TEMP 36.8; O2SAT 98
--- NOTE | 2022-10-27 11:45 | MHC.CARE ---
Conducted bed search for patient. Bed found at [facility], [address] [place] [address] RHODES 4:30p no nurse to nurse
[2022-10-27] MEDS: Nitrofurantoin Monohyd/M-Cryst 100 MG CAPSULE PO (14:48)
[2022-10-27] MEDS: Diphenoxylate/Atrop 2.5/0.025 TABLET 1 TAB PO (14:48)
== END 2022-10-27 15:55 ==
PROVIDERS: Emergency Medicine; Emergency Provider Emergency Medicine Emergency Medical Services
DX: F10.20 Alcohol dependence, uncomplicated (principal); Y90.8 Blood alcohol level of 240 mg/100 ml or more; R45.851 Suicidal ideations; Z20.822 Contact with and (suspected) exposure to COVID-19; F31.32 Bipolar disorder, current episode depressed, moderate; Z72.89 Other problems related to lifestyle; Z63.5 Disruption of family by separation and divorce; Z79.899 Other long term (current) drug therapy
CPT/HCPCS: 36415; 80053; 80307; 81001; 85025; 87086; 87635; 99285; S9485